=== PATIENT | female | born 1975 | race Caucasian/White ===

== ENCOUNTER 2019-03-23 10:30 | Emergency (ER) | payer BC, OTHER ==
[~2019-03-23] VITALS: Ht 170.2 cm; Wt 105.0 kg
[2019-03-23 10:43] VITALS: BP 157/92
[2019-03-23] MEDS ORDERED: NAPR-56 PO (11:09)
--- NOTE | 2019-03-23 11:11 | NUR ---
PT BACK FROM XRAY TO ROOM 15
[2019-03-23] MEDS ORDERED: ketorolac trometh inj. 60 MG/2 ML VIAL IM ONE (11:20)
== END 2019-03-23 11:39 | disposition home or self-care (01) ==
LOC: ER 10:30
DX: M70.61 Trochanteric bursitis, right hip (principal); I10 Essential (primary) hypertension; E11.9 Type 2 diabetes mellitus without complications; G89.29 Other chronic pain; Z90.710 Acquired absence of both cervix and uterus; Z98.890 Other specified postprocedural states; Z88.0 Allergy status to penicillin; Z88.5 Allergy status to narcotic agent; Z79.899 Other long term (current) drug therapy; Y93.89 Activity, other specified
CPT/HCPCS: 73502; 96372; 99283; J1885

== ENCOUNTER 2019-05-27 15:24 | Emergency (ER) | payer BC, OTHER ==
[~2019-05-27] VITALS: Ht 170.2 cm; Wt 106.8 kg
[2019-05-27 15:59] LABS: BASOPHILS % (AUTO) 0.4 % (0-1); EOSINOPHILS # (AUTO) 0.1 X10'3 (0-0.9); EOSINOPHILS % (AUTO) 1.6 % (0-6); HEMOGLOBIN 14.7 g/dl (12.0-16.0); LYMPHOCYTES # (AUTO) 2.8 X10'3 (1.1-4.8); LYMPHOCYTES % (AUTO) 31.2 % (21-51); MEAN CORPUSCULAR HEMOGLOBIN 28.9 PG (27.0-31.0); MEAN CORPUSCULAR HGB CONC 34.3 g/dL (33.0-36.5); MEAN CORPUSCULAR VOLUME 84.3 FL (78-98); MEAN PLATELET VOLUME 8.3 FL (7.4-10.4); MONOCYTES # (AUTO) 0.7 X10'3 (0-0.9); MONOCYTES % (AUTO) 7.4 % (2-12); NEUTROPHILS # (AUTO) 5.3 X10'3 (1.8-7.7); NEUTROPHILS % (AUTO) 59.4 % (42-75); PLATELET COUNT 256 X10'3 (140-440); RED CELL DISTRIBUTION WIDTH 12.9 % (11.5-14.5); WHITE BLOOD COUNT 8.9 X10'3 (4.5-11.0)
[2019-05-27 16:06] LABS: ALANINE AMINOTRANSFERASE 19 U/L (12-78); ALBUMIN 3.6 G/DL (3.4-5.0); ALBUMIN/GLOBULIN RATIO 0.9 (1.1-1.5); ALKALINE PHOSPHATASE 104 IU/L (46-116); ANION GAP 9 (8-16); ASPARTATE AMINO TRANSFERASE 12 U/L (10-37); BILIRUBIN,TOTAL 0.4 MG/DL (0.1-1.0); BLOOD UREA NITROGEN 16 MG/DL (7-18); BUN/CREATININE RATIO 23.5 (6.6-38.0); CALCIUM 10.1 MG/DL (8.5-10.1); CHLORIDE 98 MMOL/L (99-107); CREATININE 0.68 MG/DL (0.40-0.90); GLUCOSE 353 MG/DL (70-104); POTASSIUM 3.8 MMOL/L (3.5-5.1); SODIUM 135 MMOL/L (135-145); TOTAL CARBON DIOXIDE 27.9 MMOL/L (24-32); TOTAL PROTEIN 7.4 G/DL (6.4-8.2); eGFR > 90 ML/MIN
[2019-05-27 16:15] LABS: PARTIAL THROMBOPLASTIN TIME 25 SECONDS (22-32)
[2019-05-27 16:56] VITALS: BP 141/65
[2019-05-27] MEDS ORDERED: MECL12.584 PO (17:12)
[2019-05-27] MEDS ORDERED: ONDA8TAB6 PO (17:12)
[2019-05-27] MEDS ORDERED: insulin regular, human 10 units/0.1 ml syringe SQ ONE (17:15)
== END 2019-05-27 18:06 | disposition home or self-care (01) ==
LOC: ER 15:25
DX: R07.89 Other chest pain (principal); I10 Essential (primary) hypertension; E11.9 Type 2 diabetes mellitus without complications; G89.29 Other chronic pain; Z90.710 Acquired absence of both cervix and uterus; Z98.890 Other specified postprocedural states; Z88.0 Allergy status to penicillin; Z88.5 Allergy status to narcotic agent; Z79.899 Other long term (current) drug therapy
CPT/HCPCS: 36415; 71045; 80053; 84484; 85025; 85610; 85730; 93005; 96372; 99284; J1815

== ENCOUNTER 2019-06-27 11:22 | Emergency (ER) | payer BC, OTHER ==
[~2019-06-27] VITALS: Ht 170.2 cm; Wt 106.8 kg
[~2019-06-27 11:22] MED LIST: MECL12.584 PO; ONDA8TAB6 PO
[2019-06-27 11:23] VITALS: BP 170/106
[2019-06-27] MEDS ORDERED: DOXY100C43 PO (12:32)
[2019-06-27] MEDS ORDERED: LIDOcaine 1% W/epiNEPHrine 1:100,000 20ml vial SQ ONE (12:55)
== END 2019-06-27 13:24 | disposition home or self-care (01) ==
LOC: ER 11:22
DX: L02.212 Cutaneous abscess of back [any part, except buttock and flank] (principal); I10 Essential (primary) hypertension; E11.9 Type 2 diabetes mellitus without complications; G89.29 Other chronic pain; Z90.710 Acquired absence of both cervix and uterus; Z85.43 Personal history of malignant neoplasm of ovary; Z98.890 Other specified postprocedural states; Z88.0 Allergy status to penicillin; Z88.5 Allergy status to narcotic agent; Z79.899 Other long term (current) drug therapy
CPT/HCPCS: 10060; 99283

== ENCOUNTER 2019-07-01 15:10 | Emergency (ER) | payer BC ==
[~2019-07-01] VITALS: Ht 170.2 cm; Wt 106.8 kg
[~2019-07-01 15:10] MED LIST changes: +DOXY100C43 PO
[2019-07-01 15:14] VITALS: BP 158/102
[2019-07-01] MEDS ORDERED: SULF1TAB49 PO (16:18)
== END 2019-07-01 16:52 | disposition home or self-care (01) ==
LOC: ER 15:10
DX: L02.212 Cutaneous abscess of back [any part, except buttock and flank] (principal); L03.312 Cellulitis of back [any part except buttock and flank]; I10 Essential (primary) hypertension; E11.9 Type 2 diabetes mellitus without complications; G89.29 Other chronic pain; Z85.43 Personal history of malignant neoplasm of ovary; Z90.710 Acquired absence of both cervix and uterus; Z98.890 Other specified postprocedural states; Z88.0 Allergy status to penicillin; Z88.5 Allergy status to narcotic agent; Z79.899 Other long term (current) drug therapy
CPT/HCPCS: 87070; 87077; 87186; 99283

== ENCOUNTER 2019-07-28 13:50 | Emergency (ER) | payer BC ==
[~2019-07-28] VITALS: Ht 170.2 cm; Wt 105.0 kg
[~2019-07-28 13:50] MED LIST changes: -DOXY100C43 PO
[2019-07-28 14:03] VITALS: BP 155/81
--- NOTE | 2019-07-28 14:57 | NUR ---
WENT IN WITH PROVIDER TO OBSERVE WHILE HE LOOKED AT PT WOUNDS ON HER HIP AND BOTTOM
[2019-07-28] MEDS ORDERED: COROTSUS OT (14:58)
[2019-07-28] MEDS ORDERED: MUPI22OI30 TOP (14:58)
[2019-07-28] MEDS ORDERED: BACDS PO (14:58)
== END 2019-07-28 15:09 | disposition home or self-care (01) ==
LOC: ER 13:51
DX: S00.411A Abrasion of right ear, initial encounter (principal); S31.819A Unspecified open wound of right buttock, initial encounter; S71.002A Unspecified open wound, left hip, initial encounter; L02.31 Cutaneous abscess of buttock; L02.416 Cutaneous abscess of left lower limb; I10 Essential (primary) hypertension; E11.9 Type 2 diabetes mellitus without complications; G89.29 Other chronic pain; Z90.710 Acquired absence of both cervix and uterus; Z98.890 Other specified postprocedural states; Z85.43 Personal history of malignant neoplasm of ovary; Z86.14 Personal history of Methicillin resistant Staphylococcus aureus infection; Z88.0 Allergy status to penicillin; Z88.5 Allergy status to narcotic agent; Z79.899 Other long term (current) drug therapy; X58.XXXA Exposure to other specified factors, initial encounter; Y93.89 Activity, other specified; Y92.89 Other specified places as the place of occurrence of the external cause; Y99.8 Other external cause status
CPT/HCPCS: 99283

== ENCOUNTER 2019-07-30 22:50 | Emergency (ER) | payer BC ==
[~2019-07-30] VITALS: Ht 170.2 cm; Wt 105.0 kg
[~2019-07-30 22:50] MED LIST changes: +BACDS PO; +COROTSUS OT; +MUPI22OI30 TOP
[2019-07-30 23:32] LABS: BASOPHILS # (AUTO) 0.1 X10'3 (0-0.2); BASOPHILS % (AUTO) 0.7 % (0-1); EOSINOPHILS # (AUTO) 0.5 X10'3 (0-0.9); EOSINOPHILS % (AUTO) 4.2 % (0-6); HEMATOCRIT 39.9 % (35.0-45.0); HEMOGLOBIN 13.7 g/dl (12.0-16.0); LYMPHOCYTES # (AUTO) 1.9 X10'3 (1.1-4.8); LYMPHOCYTES % (AUTO) 17.6 % (21-51); MEAN CORPUSCULAR HEMOGLOBIN 29.2 PG (27.0-31.0); MEAN CORPUSCULAR HGB CONC 34.4 g/dL (33.0-36.5); MEAN CORPUSCULAR VOLUME 84.9 FL (78-98); MEAN PLATELET VOLUME 8.9 FL (7.4-10.4); MONOCYTES # (AUTO) 0.9 X10'3 (0-0.9); MONOCYTES % (AUTO) 8.7 % (2-12); NEUTROPHILS # (AUTO) 7.4 X10'3 (1.8-7.7); NEUTROPHILS % (AUTO) 68.8 % (42-75); PLATELET COUNT 222 X10'3 (140-440); RED CELL DISTRIBUTION WIDTH 13.2 % (11.5-14.5); WHITE BLOOD COUNT 10.8 X10'3 (4.5-11.0)
[2019-07-30 23:43] LABS: PARTIAL THROMBOPLASTIN TIME 26 SECONDS (22-32)
[2019-07-30 23:52] LABS: ALANINE AMINOTRANSFERASE 9 U/L (12-78); ALBUMIN/GLOBULIN RATIO 0.7 (1.1-1.5); ALKALINE PHOSPHATASE 110 IU/L (46-116); ANION GAP 9 (8-16); ASPARTATE AMINO TRANSFERASE 9 U/L (10-37); BILIRUBIN,TOTAL 0.3 MG/DL (0.1-1.0); BLOOD UREA NITROGEN 14 MG/DL (7-18); BUN/CREATININE RATIO 17.7 (6.6-38.0); CALCIUM 9.9 MG/DL (8.5-10.1); CHLORIDE 96 MMOL/L (99-107); CREATININE 0.79 MG/DL (0.40-0.90); POTASSIUM 3.6 MMOL/L (3.5-5.1); SODIUM 131 MMOL/L (135-145); TOTAL CARBON DIOXIDE 25.8 MMOL/L (24-32); TOTAL PROTEIN 7.3 G/DL (6.4-8.2); eGFR 79 ML/MIN
[2019-07-30 23:54] LABS: GLUCOSE 481 MG/DL (70-104)
--- NOTE | 2019-07-30 23:54 | NUR ---
EDUCATED PT TO USE HEBICLEANSE.
[2019-07-31] MEDS ORDERED: normal saline 1000ml 1,000 ML IV ONE
[2019-07-31] MEDS ORDERED: ondansetron 4mg rapidly disintigrating tab PO ONE (00:20)
[2019-07-31] MEDS ORDERED: HYDROcodone/acetaminophen 5mg/325mg tablet PO ONE (00:20)
[2019-07-31 00:28] VITALS: BP 173/94
--- NOTE | 2019-07-31 01:14 | NUR ---
SPOKE WITH ERIKA CRUZ AND MARANDA FRANCISCO ABOUT PT BG OF 460S AND NO INSULIN AT HOME. ERIKA CRUZ ORDERED INSULIN 10 U IV
[2019-07-31] MEDS ORDERED: insulin regular, human 10 units/0.1 ml syringe IV ONE (01:15)
== END 2019-07-31 01:53 | disposition home or self-care (01) ==
LOC: ER 22:51
DX: L02.31 Cutaneous abscess of buttock (principal); L02.416 Cutaneous abscess of left lower limb; E87.1 Hypo-osmolality and hyponatremia; E11.65 Type 2 diabetes mellitus with hyperglycemia; I10 Essential (primary) hypertension; G89.29 Other chronic pain; Z90.710 Acquired absence of both cervix and uterus; Z98.890 Other specified postprocedural states; Z88.0 Allergy status to penicillin; Z88.5 Allergy status to narcotic agent
CPT/HCPCS: 10061; 36415; 71045; 80053; 82948; 83605; 84145; 85025; 85610; 85730; 87040; 96361; 96374; 99284; J1815; J7030

== ENCOUNTER 2020-07-04 12:05 | Emergency (ER) | payer BC, OTHER ==
[~2020-07-04] VITALS: Ht 170.2 cm; Wt 102.6 kg
[~2020-07-04 12:05] MED LIST changes: -BACDS PO; +MECL-183 PO; -MECL12.584 PO; -MUPI22OI30 TOP
[2020-07-04 12:55] LABS: BASOPHILS # (AUTO) 0.1 X10'3 (0-0.2); BASOPHILS % (AUTO) 0.7 % (0-1); EOSINOPHILS # (AUTO) 0.2 X10'3 (0-0.9); EOSINOPHILS % (AUTO) 1.6 % (0-6); HEMOGLOBIN 15.9 g/dl (12.0-16.0); LYMPHOCYTES # (AUTO) 2.5 X10'3 (1.1-4.8); LYMPHOCYTES % (AUTO) 23.2 % (21-51); MEAN CORPUSCULAR HEMOGLOBIN 29.2 PG (27.0-31.0); MEAN CORPUSCULAR HGB CONC 33.8 g/dL (33.0-36.5); MEAN CORPUSCULAR VOLUME 86.6 FL (78-98); MEAN PLATELET VOLUME 9.4 FL (7.4-10.4); MONOCYTES # (AUTO) 0.6 X10'3 (0-0.9); MONOCYTES % (AUTO) 5.6 % (2-12); NEUTROPHILS # (AUTO) 7.4 X10'3 (1.8-7.7); NEUTROPHILS % (AUTO) 68.9 % (42-75); PLATELET COUNT 244 X10'3 (140-440); RED BLOOD COUNT 5.43 X10'6 (4.20-5.60); RED CELL DISTRIBUTION WIDTH 13.4 % (11.5-14.5); WHITE BLOOD COUNT 10.7 X10'3 (4.5-11.0)
[2020-07-04 12:57] LABS: ALANINE AMINOTRANSFERASE 20 U/L (12-78); ALBUMIN 3.8 G/DL (3.4-5.0); ALKALINE PHOSPHATASE 107 IU/L (46-116); ANION GAP 12 (8-16); ASPARTATE AMINO TRANSFERASE 24 U/L (10-37); BILIRUBIN,TOTAL 0.5 MG/DL (0.1-1.0); BLOOD UREA NITROGEN 15 MG/DL (7-18); BUN/CREATININE RATIO 22.1 (6.6-38.0); CALCIUM 9.6 MG/DL (8.5-10.1); CHLORIDE 99 MMOL/L (99-107); CREATININE 0.68 MG/DL (0.40-0.90); GLUCOSE 354 MG/DL (70-104); POTASSIUM 4.7 MMOL/L (3.5-5.1); SODIUM 134 MMOL/L (135-145); TOTAL CARBON DIOXIDE 23.3 MMOL/L (24-32); TOTAL PROTEIN 7.8 G/DL (6.4-8.2); eGFR > 90 ML/MIN
[2020-07-04 15:09] VITALS: BP 116/74
== END 2020-07-04 15:12 | disposition home or self-care (01) ==
LOC: ER 12:06
DX: R07.89 Other chest pain (principal); I10 Essential (primary) hypertension; E11.9 Type 2 diabetes mellitus without complications; G89.29 Other chronic pain; Z90.710 Acquired absence of both cervix and uterus; Z98.890 Other specified postprocedural states; Z88.0 Allergy status to penicillin; Z88.5 Allergy status to narcotic agent; Z79.899 Other long term (current) drug therapy
CPT/HCPCS: 36415; 71045; 80053; 83880; 84484; 85025; 93005; 99285

== ENCOUNTER 2020-08-18 12:31 | Emergency (ER) | payer OTHER ==
[~2020-08-18] VITALS: Ht 170.2 cm; Wt 100.0 kg
[~2020-08-18 12:31] MED LIST changes: -MECL-183 PO; +MECL-226 PO
[2020-08-18 12:46] VITALS: BP 170/106
== END 2020-08-18 13:13 | disposition home or self-care (01) ==
LOC: ER 12:32
DX: R53.83 Other fatigue (principal); R53.1 Weakness; Z20.828 Contact with and (suspected) exposure to other viral communicable diseases; I10 Essential (primary) hypertension; E11.9 Type 2 diabetes mellitus without complications; G89.29 Other chronic pain; Z90.710 Acquired absence of both cervix and uterus; Z98.890 Other specified postprocedural states; Z88.0 Allergy status to penicillin; Z88.5 Allergy status to narcotic agent; Z79.899 Other long term (current) drug therapy
CPT/HCPCS: 87635; 99282; C9803

== ENCOUNTER 2020-10-28 01:16 | Emergency (ER) | payer OTHER ==
[~2020-10-28] VITALS: Ht 170.2 cm; Wt 100.0 kg
[2020-10-28] MEDS ORDERED: normal saline 1000ml 1,000 ML IV ONE (01:50)
[2020-10-28] MEDS ORDERED: ondansetron/PF 4mg/2ml inj IV ONE ×3 (01:50→04:05)
[2020-10-28 02:08] LABS: BASOPHILS % (AUTO) 0.2 % (0-1); EOSINOPHILS % (AUTO) 0.1 % (0-6); HEMATOCRIT 42.6 % (35.0-45.0); HEMOGLOBIN 14.3 g/dl (12.0-16.0); LYMPHOCYTES # (AUTO) 0.7 X10'3 (1.1-4.8); LYMPHOCYTES % (AUTO) 3.6 % (21-51); MEAN CORPUSCULAR HEMOGLOBIN 28.7 PG (27.0-31.0); MEAN CORPUSCULAR HGB CONC 33.7 g/dL (33.0-36.5); MEAN CORPUSCULAR VOLUME 85.3 FL (78-98); MEAN PLATELET VOLUME 8.1 FL (7.4-10.4); MONOCYTES # (AUTO) 1.4 X10'3 (0-0.9); MONOCYTES % (AUTO) 7.8 % (2-12); NEUTROPHILS # (AUTO) 16.3 X10'3 (1.8-7.7); NEUTROPHILS % (AUTO) 88.3 % (42-75); PLATELET COUNT 196 X10'3 (140-440); RED BLOOD COUNT 4.99 X10'6 (4.20-5.60); RED CELL DISTRIBUTION WIDTH 12.7 % (11.5-14.5); WHITE BLOOD COUNT 18.4 X10'3 (4.5-11.0)
[2020-10-28 02:21] LABS: ALANINE AMINOTRANSFERASE 13 U/L (12-78); ALBUMIN 3.1 G/DL (3.4-5.0); ALBUMIN/GLOBULIN RATIO 0.7 (1.1-1.5); ALKALINE PHOSPHATASE 112 IU/L (46-116); ANION GAP 16 (8-16); ASPARTATE AMINO TRANSFERASE 11 U/L (10-37); BILIRUBIN,TOTAL 0.8 MG/DL (0.1-1.0); BLOOD UREA NITROGEN 10 MG/DL (7-18); BUN/CREATININE RATIO 17.5 (6.6-38.0); CHLORIDE 100 MMOL/L (99-107); CREATININE 0.57 MG/DL (0.40-0.90); GLUCOSE 394 MG/DL (70-104); LIPASE < 50 U/L (73-393); POTASSIUM 3.4 MMOL/L (3.5-5.1); SODIUM 136 MMOL/L (135-145); TOTAL CARBON DIOXIDE 20.1 MMOL/L (24-32); TOTAL PROTEIN 7.4 G/DL (6.4-8.2); eGFR > 90 ML/MIN
[2020-10-28 02:50] LABS: CLARITY,URINE CLEAR (Clear); COLOR,URINE YELLOW (Yellow); GLUCOSE, URINE >=1000 mg/dl (Neg); KETONES,URINE >=80 mg/dl (Neg); LEUKOCYTE ESTERASE ,URINE NEGATIVE (Neg); NITRITES, URINE NEGATIVE (Neg); OCCULT BLOOD,URINE NEGATIVE (Neg); PH,URINE 5.5 (4.8-8.0); PROTEIN,URINE NEGATIVE (Neg); UROBILINOGEN,URINE 0.2 E.U/dL (0.2-1.0)
[2020-10-28 03:07] LABS: URINE AMPHETAMINE SCREEN NEGATIVE (Neg); URINE BARBITUATE SCREEN NEGATIVE (Neg); URINE BENZODIAZEPINES SCREEN NEGATIVE (Neg); URINE CANNABINOID SCREEN NEGATIVE (Neg); URINE COCAINE SCREEN NEGATIVE (Neg); URINE METHADONE SCREEN NEGATIVE (Neg); URINE OPIATE SCREEN NEGATIVE (Neg); URINE PHENCYCLIDINE SCREEN NEGATIVE (Neg)
[2020-10-28 03:08] LABS: UA COLLECTION TYPE CLN CATCH MIDSTREAM
[2020-10-28 03:09] LABS: BACTERIA,URINE 1+ /HPF (Neg); RBC,URINE 0-2 /HPF (0-2); SQUAMOUS EPITHELIAL CELL,UR MODERATE /LPF (FEW); WBC,URINE 0-4 /HPF (0-4)
[2020-10-28 03:17] LABS: URINE HCG NEGATIVE (NEG)
[2020-10-28] MEDS ORDERED: ringers solution, lactated 1000ml IV soln IV ONE (03:35)
[2020-10-28] MEDS ORDERED: insulin regular, human 10 units/0.1 ml syringe IV ONE (03:40)
[2020-10-28] MEDS ORDERED: ONDA4TAB6 PO (03:41)
[2020-10-28] MEDS ORDERED: PROC25SU31 RC (03:41)
[2020-10-28] MEDS ORDERED: METF-436 PO (03:41)
[2020-10-28 04:09] VITALS: BP 146/80
[2020-10-29] MEDS ORDERED: METF-436 PO (23:40)
== END 2020-10-28 04:50 | disposition home or self-care (01) ==
LOC: ER 01:17
DX: K29.00 Acute gastritis without bleeding (principal); E11.65 Type 2 diabetes mellitus with hyperglycemia; R11.2 Nausea with vomiting, unspecified; I10 Essential (primary) hypertension; G89.29 Other chronic pain; Z98.890 Other specified postprocedural states; Z85.43 Personal history of malignant neoplasm of ovary; Z88.0 Allergy status to penicillin; Z88.5 Allergy status to narcotic agent; Z79.2 Long term (current) use of antibiotics; Z79.899 Other long term (current) drug therapy
CPT/HCPCS: 36415; 80053; 80305; 81001; 81025; 82948; 83690; 85025; 96361; 96374; 96375; 96376; 99284; J1815; J2405; J7030; J7120

== ENCOUNTER 2020-10-29 20:11 | Inpatient (IN) | payer OTHER ==
[~2020-10-29] VITALS: Ht 170.2 cm; Wt 104.9 kg
[~2020-10-29 20:11] MED LIST changes: +METF-436 PO; +ONDA4TAB6 PO; +PROC25SU31 RC
--- NOTE | 2020-10-29 21:05 | NUR ---
serum lab and urine specimens to lab
[2020-10-29 21:10] LABS: BASOPHILS # (AUTO) 0.1 X10'3 (0-0.2); BASOPHILS % (AUTO) 0.3 % (0-1); EOSINOPHILS % (AUTO) 0.1 % (0-6); MONOCYTES # (AUTO) 1.6 X10'3 (0-0.9)
[2020-10-29 21:13] LABS: HEMATOCRIT 42.5 % (35.0-45.0); HEMOGLOBIN 14.1 g/dl (12.0-16.0); LYMPHOCYTES % (AUTO) 5.3 % (21-51); MEAN CORPUSCULAR HEMOGLOBIN 28.4 PG (27.0-31.0); MEAN CORPUSCULAR HGB CONC 33.1 g/dL (33.0-36.5); MEAN CORPUSCULAR VOLUME 85.7 FL (78-98); MEAN PLATELET VOLUME 8.9 FL (7.4-10.4); MONOCYTES % (AUTO) 8.9 % (2-12); NEUTROPHILS # (AUTO) 15.7 X10'3 (1.8-7.7); NEUTROPHILS % (AUTO) 85.4 % (42-75); PLATELET COUNT 231 X10'3 (140-440); RED BLOOD COUNT 4.97 X10'6 (4.20-5.60); RED CELL DISTRIBUTION WIDTH 13.3 % (11.5-14.5); WHITE BLOOD COUNT 18.4 X10'3 (4.5-11.0)
[2020-10-29 21:26] LABS: URINE HCG NEGATIVE (NEG)
[2020-10-29 21:28] LABS: CLARITY,URINE CLEAR (Clear); COLOR,URINE YELLOW (Yellow); GLUCOSE, URINE 500 mg/dl (Neg); KETONES,URINE >=80 mg/dl (Neg); LEUKOCYTE ESTERASE ,URINE NEGATIVE (Neg); NITRITES, URINE NEGATIVE (Neg); OCCULT BLOOD,URINE TRACE-INTACT (Neg); PH,URINE 5.5 (4.8-8.0); PROTEIN,URINE 30 mg/dl (Neg)
[2020-10-29 21:35] LABS: UA COLLECTION TYPE CLN CATCH MIDSTREAM
[2020-10-29 21:36] LABS: BACTERIA,URINE FEW /HPF (Neg); RBC,URINE 0-2 /HPF (0-2); SQUAMOUS EPITHELIAL CELL,UR FEW /LPF (FEW); WBC,URINE 0-4 /HPF (0-4)
[2020-10-29 21:39] LABS: ALANINE AMINOTRANSFERASE 16 U/L (12-78); ALBUMIN 2.6 G/DL (3.4-5.0); ALBUMIN/GLOBULIN RATIO 0.5 (1.1-1.5); ALKALINE PHOSPHATASE 139 IU/L (46-116); ANION GAP 17 (8-16); ASPARTATE AMINO TRANSFERASE 16 U/L (10-37); BILIRUBIN,TOTAL 0.6 MG/DL (0.1-1.0); BLOOD UREA NITROGEN 8 MG/DL (7-18); BUN/CREATININE RATIO 11.4 (6.6-38.0); CALCIUM 10.5 MG/DL (8.5-10.1); CHLORIDE 94 MMOL/L (99-107); GLUCOSE 349 MG/DL (70-104); LIPASE < 50 U/L (73-393); POTASSIUM 3.2 MMOL/L (3.5-5.1); SODIUM 129 MMOL/L (135-145); TOTAL CARBON DIOXIDE 18.2 MMOL/L (24-32); TOTAL PROTEIN 7.5 G/DL (6.4-8.2); eGFR 90 ML/MIN
[2020-10-29] MEDS ORDERED: pantoprazole 40 MG vial IV ONE (22:20)
[2020-10-29] MEDS ORDERED: diazepam inj 5 MG/ML inj. IV ONE (22:20)
[2020-10-29] MEDS ORDERED: normal saline 1000ML IV soln IVB ONE (22:20)
[2020-10-29] MEDS ORDERED: ondansetron/PF 4mg/2ml inj IV ONE (22:20)
[2020-10-29] MEDS ORDERED: metoclopramide 5 mg/ml inj IV ONE (22:20)
[2020-10-29] MEDS ORDERED: vancomycin/NS 1 GM ADD-VANTAGE 250 ML IV ONE (22:55)
[2020-10-29] MEDS ORDERED: potassium Cl 20 mEq SR tablet PO PRN (23:35)
[2020-10-29] MEDS ORDERED: magnesium 4gm in 100ml NS 100 ML IV PRN (23:35)
[2020-10-29] MEDS ORDERED: magnesium hydroxide 30ml (MOM) UD suspension PO PRN (23:35)
[2020-10-29] MEDS ORDERED: potassium Cl 40MEQ/1/2NS 520ml 520 ML IV PRN ×2 (23:35)
[2020-10-29] MEDS ORDERED: magnesium Cl slow-release 64mg tablet PO PRN (23:35)
[2020-10-29] MEDS ORDERED: magnesium 2GM in 50ml NS 50 ML IV PRN (23:35)
[2020-10-29] MEDS ORDERED: acetaminophen 325mg tablet PO PRN (23:35)
[2020-10-29] MEDS ORDERED: mag hydrox/Alum hydrox/simeth 30ml oral suspension PO PRN (23:35)
[2020-10-29] MEDS ORDERED: METF-436 PO (23:40)
[2020-10-29] MEDS ORDERED: MESSAGE TO PHARMACY PO ONE (23:45)
[2020-10-29] MEDS ORDERED: dextrose ORAL solution 15 GM/59 ML bottle PO PRN ×2 (23:45)
[2020-10-29] MEDS ORDERED: glucagon, human recombinant 1mg kit SUBCUT PRN (23:45)
[2020-10-29] MEDS ORDERED: insulin Lispro (HumaLOG) vial - multi-dose SQ SCH (23:45)
[2020-10-29] MEDS ORDERED: dextrose 50%-water 50ml dispensing syringe IV PRN ×2 (23:45)
[2020-10-30 00:25] VITALS: BP 139/86
--- NOTE | 2020-10-30 00:25 | NUR ---
PATIENT ADMITTED TO ROOM 347A FROM ER FOR UNCONTROLLED DIABETES, CELLULITIS OF THE LEFT SIDE OF THE TORSO AND NAUSEA AND VOMITING. PLACED COMFORTABLE IN BED. VITAL SIGNS TAKEN AND RECORDED.
[2020-10-30] MEDS: normal saline 1000ml 1,000 ML IV SCH ×7 (00:35→18:33)
[2020-10-30] MEDS: HYDROcodone/acetaminophen 5mg/325mg tablet PO PRN ×4 (03:45→16:51)
[2020-10-30 06:07] LABS: BASOPHILS % (AUTO) 0.1 % (0-1); EOSINOPHILS % (AUTO) 0 % (0-6); HEMATOCRIT 38.2 % (35.0-45.0); HEMOGLOBIN 12.7 g/dl (12.0-16.0); LYMPHOCYTES # (AUTO) 0.7 X10'3 (1.1-4.8); LYMPHOCYTES % (AUTO) 3.8 % (21-51); MEAN CORPUSCULAR HEMOGLOBIN 28.7 PG (27.0-31.0); MEAN CORPUSCULAR HGB CONC 33.4 g/dL (33.0-36.5); MEAN PLATELET VOLUME 8.4 FL (7.4-10.4); MONOCYTES # (AUTO) 1.6 X10'3 (0-0.9); MONOCYTES % (AUTO) 8.5 % (2-12); NEUTROPHILS # (AUTO) 16.6 X10'3 (1.8-7.7); NEUTROPHILS % (AUTO) 87.6 % (42-75); PLATELET COUNT 245 X10'3 (140-440); RED BLOOD COUNT 4.44 X10'6 (4.20-5.60); RED CELL DISTRIBUTION WIDTH 13.3 % (11.5-14.5)
[2020-10-30 06:22] LABS: ALANINE AMINOTRANSFERASE 12 U/L (12-78); ALBUMIN 2.2 G/DL (3.4-5.0); ALBUMIN/GLOBULIN RATIO 0.5 (1.1-1.5); ALKALINE PHOSPHATASE 113 IU/L (46-116); ANION GAP 24 (8-16); ASPARTATE AMINO TRANSFERASE 12 U/L (10-37); BILIRUBIN,TOTAL 0.5 MG/DL (0.1-1.0); BLOOD UREA NITROGEN 9 MG/DL (7-18); BUN/CREATININE RATIO 12.9 (6.6-38.0); CALCIUM 9.4 MG/DL (8.5-10.1); CHLORIDE 101 MMOL/L (99-107); GLUCOSE 344 MG/DL (70-104); MAGNESIUM 1.5 MG/DL (1.5-2.4); SODIUM 136 MMOL/L (135-145); TOTAL PROTEIN 6.4 G/DL (6.4-8.2); eGFR 90 ML/MIN
[2020-10-30] MEDS ORDERED: glucagon, human recombinant 1mg kit SUBCUT PRN ×2 (06:25→20:00)
[2020-10-30] MEDS ORDERED: insulin Lispro (HumaLOG) vial - multi-dose SQ SCH ×2 (06:25→20:00)
[2020-10-30] MEDS ORDERED: dextrose ORAL solution 15 GM/59 ML bottle PO PRN ×4 (06:25→20:00)
[2020-10-30] MEDS ORDERED: MESSAGE TO PHARMACY PO ONE ×2 (06:25→20:00)
[2020-10-30] MEDS ORDERED: dextrose 50%-water 50ml dispensing syringe IV PRN ×4 (06:25→20:00)
--- NOTE | 2020-10-30 06:26 | NUR ---
Patient in room [facility] 347. I have received report from ENRIQUE SUBRAMANIAN and had the opportunity to ask questions and assume patient care.
[2020-10-30 06:27] LABS: POTASSIUM 2.9 MMOL/L (3.5-5.1); TOTAL CARBON DIOXIDE 11.1 MMOL/L (24-32)
--- NOTE | 2020-10-30 06:44 | NUR ---
CRITICAL K 2.9 & CO2 11.1, PAGED AWAITING CALL BACK
--- NOTE | 2020-10-30 06:45 | NUR ---
Patient in room [facility] 347A. I have received report from EMMA CARTER RN and had the opportunity to ask questions and assume patient care.
[2020-10-30 07:00] VITALS: BP 158/85
[2020-10-30] MEDS ORDERED: metFORMIN 500mg tablet PO SCH ×2 (08:00→08:45)
[2020-10-30] MEDS: K and/or MAG REPLACEMENT MC SCH ×2 (08:00→20:00)
--- NOTE | 2020-10-30 08:37 | NUR ---
Per pharmacist Ady, we do not hold glucophage if patient is admitted to the hospital , its for sulfonoreas medications only like glipizide. I have communicated this to the primary nurse Zaira.
[2020-10-30] MEDS: potassium Cl 20 mEq SR tablet PO PRN ×2 (09:24→15:06)
[2020-10-30 11:00] VITALS: BP 156/71
[2020-10-30] MEDS ORDERED: insulin regular, human U-100 3ml vial - multi-dose IV PRN (11:35)
[2020-10-30] MEDS ORDERED: potassium Cl 20 mEq SR tablet PO PRN ×2 (11:35)
[2020-10-30] MEDS ORDERED: sodium bicarbonate (8.4%) inj. 50 MEQ in dextrose 5% water 500ml 250 ML IV PRN (11:35)
[2020-10-30] MEDS ORDERED: potassium Cl 40MEQ/1/2NS 520ml 520 ML IV PRN ×2 (11:35)
[2020-10-30] MEDS ORDERED: sodium phosphate inj. 15 MMOL in dextrose 5%-water 250 ML IV PRN (11:35)
[2020-10-30] MEDS ORDERED: sodium bicarbonate (8.4%) inj. 100 MEQ in dextrose 5% water 500ml 500 ML IV PRN (11:35)
[2020-10-30] MEDS ORDERED: potassium CL 20mEq in D5-1/2NS 1,000 ML IV PRN (11:35)
[2020-10-30] MEDS ORDERED: sodium phosphate inj. 30 MMOL in dextrose 5%-water 250 ML IV PRN (11:35)
[2020-10-30] MEDS: VANCOmycin 1250MG/NS 250ml Bag 250 ML IV SCH ×2 (11:49→23:15)
[2020-10-30] MEDS ORDERED: vancomycin/NS 1 GM ADD-VANTAGE 250 ML IV SCH (12:00)
[2020-10-30] MEDS: cefepime 1GM/NS ADD-VANTAGE 100 ML IV SCH ×2 (12:55→20:32)
[2020-10-30 14:09] LABS: URINE AMPHETAMINE SCREEN NEGATIVE (Neg); URINE BARBITUATE SCREEN NEGATIVE (Neg); URINE BENZODIAZEPINES SCREEN NEGATIVE (Neg); URINE CANNABINOID SCREEN NEGATIVE (Neg); URINE COCAINE SCREEN NEGATIVE (Neg); URINE METHADONE SCREEN NEGATIVE (Neg); URINE OPIATE SCREEN POSITIVE (Neg); URINE PHENCYCLIDINE SCREEN NEGATIVE (Neg)
--- NOTE | 2020-10-30 14:27 | NUR ---
Problems reprioritized. Patient report given, questions answered & plan of care reviewed with MARILYNN GOZNALEZ ON PCU.
[2020-10-30 15:00] VITALS: BP 169/86
[2020-10-30] MEDS: Insulin Reg/NS 100units/100mL 100 ML IV SCH ×2 (15:23→19:38)
--- NOTE | 2020-10-30 15:40 | NUR ---
DM Consult: Pt admit w/ intractable N/V and L breast cellulitis hx T2DM out of meds for DM until recently r/t lapse in insurance per EMR. A1C 10.6. Pt would benefit from DM ed once more appropriate prior to discharge. Addendum: 10/30/20 at [address] Amended: Links added.
--- NOTE | 2020-10-30 15:41 | NUR ---
PAGER ID: [phone] MESSAGE: Pt Oralia Jackson 3011, DKA, Insulin drip started, gave PO 40 mEq K+ for low K+ of 2.9. Working on more IV access for abx and IV K+ replacement. Skye Wright
[2020-10-30] MEDS ORDERED: insulin regular, human 10 units/0.1 ml syringe IV PRN (16:56)
[2020-10-30 17:10] LABS: ANION GAP 18 (8-16); BLOOD UREA NITROGEN 10 MG/DL (7-18); BUN/CREATININE RATIO 14.9 (6.6-38.0); CALCIUM 9.1 MG/DL (8.5-10.1); CHLORIDE 101 MMOL/L (99-107); CREATININE 0.67 MG/DL (0.40-0.90); GLUCOSE 292 MG/DL (70-104); POTASSIUM 3.3 MMOL/L (3.5-5.1); SODIUM 131 MMOL/L (135-145); eGFR > 90 ML/MIN
[2020-10-30 17:12] LABS: TOTAL CARBON DIOXIDE 11.6 MMOL/L (24-32)
--- NOTE | 2020-10-30 18:28 | NUR ---
PAGER ID: [phone] MESSAGE: Pt Renetta 3011, can I get stronger pain control than [place] 5? She is writhing in pain from her left side cellulitus. Thanks, Skye IBRAHIM
--- NOTE | 2020-10-30 18:32 | NUR ---
Problems reprioritized. Patient report given, questions answered & plan of care reviewed with Kaelyn SUBRAMANIAN.
[2020-10-30] MEDS: ondansetron/PF 4mg/2ml inj IV PRN (18:44)
--- NOTE | 2020-10-30 18:56 | NUR ---
rec'd report from CARLOS SUBRAMANIAN. Pt stated she was still hurting. Additional pain meds were ordered by . Came back to give zofran and additional norco but pt woke briefly and fell asleep. additional pain meds held at this time. will continue to monitor. Insulin drip still not started, awaiting pending labs for potassium levels.
[2020-10-30 18:59] VITALS: BP 153/77
[2020-10-30 19:07] LABS: ALBUMIN 1.9 G/DL (3.4-5.0); ANION GAP 19 (8-16); BLOOD UREA NITROGEN 10 MG/DL (7-18); BUN/CREATININE RATIO 15.6 (6.6-38.0); CHLORIDE 100 MMOL/L (99-107); CREATININE 0.64 MG/DL (0.40-0.90); GLUCOSE 271 MG/DL (70-104); POTASSIUM 3.6 MMOL/L (3.5-5.1); SODIUM 128 MMOL/L (135-145); eGFR > 90 ML/MIN
[2020-10-30 19:15] LABS: TOTAL CARBON DIOXIDE 8.9 MMOL/L (24-32)
[2020-10-30] MEDS: morphine 2 MG/ML inj. syringe IV PRN (19:46)
[2020-10-30] MEDS ORDERED: K and/or MAG REPLACEMENT MC SCH (20:00)
--- NOTE | 2020-10-30 20:01 | NUR ---
spoke with Dr. Gao. He is aware of critical CO2. orders for labs and fluid changes and to stop insulin gtt. and ordered bicarb gtt.
--- NOTE | 2020-10-30 20:24 | NUR ---
pt off flooe for CT and CXR
[2020-10-30] MEDS ORDERED: insulin glargine (Lantus) pen - multi-dose SQ SCH ×3 (21:00)
[2020-10-30] MEDS: pantoprazole 40 MG vial IV SCH (21:13)
[2020-10-30] MEDS: sodium bicarbonate (8.4%) inj. 150 MEQ in sodium chloride 0.45% 1,000 ML IV SCH (21:14)
[2020-10-30] MEDS: enoxaparin 40mg/0.4ml syringe SQ SCH (21:21)
[2020-10-30] MEDS: clindamycin 600mg/D5W 50ml 50 ML IV SCH (21:25)
[2020-10-30] MEDS: lactobacillus rhamnosus 10,000 MMU CELLS/CAPSULE PO SCH (21:29)
[2020-10-30] MEDS: lisinopril 10 MG tablet PO SCH (21:29)
[2020-10-30] MEDS: propranolol 10mg tablet PO SCH (21:29)
--- NOTE | 2020-10-30 21:59 | NUR ---
Pt nauseated. threw up water. Mulu already given, notified for further orders, awaiting return call. Pt unable to take evening pills.
[2020-10-30 22:32] LABS: ALBUMIN 1.9 G/DL (3.4-5.0); ANION GAP 19 (8-16); BLOOD UREA NITROGEN 10 MG/DL (7-18); BUN/CREATININE RATIO 15.9 (6.6-38.0); CALCIUM 9.1 MG/DL (8.5-10.1); CHLORIDE 102 MMOL/L (99-107); CREATININE 0.63 MG/DL (0.40-0.90); GLUCOSE 244 MG/DL (70-104); POTASSIUM 3.5 MMOL/L (3.5-5.1); SODIUM 131 MMOL/L (135-145); eGFR > 90 ML/MIN
[2020-10-30 22:34] LABS: TOTAL CARBON DIOXIDE 10.3 MMOL/L (24-32)
[2020-10-30 23:20] VITALS: BP 139/56
[2020-10-31 00:10] LABS: ABG BASE EXCESS -19.5 mmol/L (-2.0-2.0); ABG HCO3 6.5 mmol/L (22.0-26.0); ABG OXYGEN SATURATION 97.3 % (94-97); ABG PCO2 (T) 17.1 mmHg (32.0-45.0); ABG PO2 (T) 90.3 mmHg (75.0-100.0); ALLEN'S TEST POSITIVE; FCOHb 0.4 % (0.0-3.9); FMetHb 0.4 % (0.0-1.5); FO2Hb 96.5 % (94-97); PATIENT TEMPERATURE 36.4; TOTAL HEMOGLOBIN 13.2 G/dl (12.0-16.0)
[2020-10-31] MEDS: morphine 2 MG/ML inj. syringe IV PRN ×5 (00:14→20:33)
[2020-10-31] MEDS: ondansetron/PF 4mg/2ml inj IV PRN ×3 (00:15→20:14)
--- NOTE | 2020-10-31 00:23 | NUR ---
Hospitalist notified of ABG results.
[2020-10-31] MEDS: clindamycin 600mg/D5W 50ml 50 ML IV SCH ×4 (02:11→20:28)
[2020-10-31 03:05] VITALS: BP 143/77
--- NOTE | 2020-10-31 06:22 | NUR ---
Problems reprioritized. Patient report given, questions answered & plan of care reviewed with Claire SUBRAMANIAN.
[2020-10-31 06:58] LABS: BASOPHILS # (AUTO) 0.1 X10'3 (0-0.2); BASOPHILS % (AUTO) 0.3 % (0-1); EOSINOPHILS % (AUTO) 0.1 % (0-6); HEMATOCRIT 37.8 % (35.0-45.0); HEMOGLOBIN 12.6 g/dl (12.0-16.0); LYMPHOCYTES # (AUTO) 1.4 X10'3 (1.1-4.8); LYMPHOCYTES % (AUTO) 5.8 % (21-51); MEAN CORPUSCULAR HEMOGLOBIN 28.9 PG (27.0-31.0); MEAN CORPUSCULAR HGB CONC 33.4 g/dL (33.0-36.5); MEAN CORPUSCULAR VOLUME 86.6 FL (78-98); MEAN PLATELET VOLUME 8.6 FL (7.4-10.4); MONOCYTES # (AUTO) 1.4 X10'3 (0-0.9); MONOCYTES % (AUTO) 5.7 % (2-12); NEUTROPHILS # (AUTO) 20.9 X10'3 (1.8-7.7); NEUTROPHILS % (AUTO) 88.1 % (42-75); PLATELET COUNT 269 X10'3 (140-440); RED BLOOD COUNT 4.37 X10'6 (4.20-5.60); RED CELL DISTRIBUTION WIDTH 13.8 % (11.5-14.5); WHITE BLOOD COUNT 23.7 X10'3 (4.5-11.0)
[2020-10-31 07:00] VITALS: BP 153/84
[2020-10-31 07:52] LABS: ALBUMIN 1.9 G/DL (3.4-5.0); ANION GAP 23 (8-16); BLOOD UREA NITROGEN 10 MG/DL (7-18); BUN/CREATININE RATIO 15.2 (6.6-38.0); CALCIUM 9.5 MG/DL (8.5-10.1); CHLORIDE 100 MMOL/L (99-107); CREATININE 0.66 MG/DL (0.40-0.90); GLUCOSE 287 MG/DL (70-104); MAGNESIUM 1.5 MG/DL (1.5-2.4); PHOSPHORUS 1.6 MG/DL (2.3-4.5); POTASSIUM 3.4 MMOL/L (3.5-5.1); SODIUM 131 MMOL/L (135-145); eGFR > 90 ML/MIN
[2020-10-31 08:02] LABS: TOTAL CARBON DIOXIDE 7.9 MMOL/L (24-32)
[2020-10-31 08:03] LABS: ABG BASE EXCESS -18.3 mmol/L (-2.0-2.0); ABG HCO3 7.1 mmol/L (22.0-26.0); ABG OXYGEN SATURATION 96.6 % (94-97); ABG PCO2 (T) 17.8 mmHg (32.0-45.0); ABG PO2 (T) 87.3 mmHg (75.0-100.0); ALLEN'S TEST POSITIVE; FCOHb 0.3 % (0.0-3.9); FMetHb 0.2 % (0.0-1.5); FO2Hb 96.1 % (94-97); TOTAL HEMOGLOBIN 13.5 G/dl (12.0-16.0)
--- NOTE | 2020-10-31 08:04 | NUR ---
Page Sent promotional table spacer PAGER ID: [phone] MESSAGE: Anna1 Renetta. Critical Co2 7.9. Claire [phone]
[2020-10-31] MEDS ORDERED: sodium phosphate inj. 15 MMOL in dextrose 5%-water 250 ML IV PRN (08:40)
[2020-10-31] MEDS ORDERED: sodium phosphate inj. 30 MMOL in dextrose 5%-water 250 ML IV PRN (08:40)
[2020-10-31] MEDS: normal saline 1000ml 1,000 ML IV SCH ×6 (08:40→20:40)
[2020-10-31] MEDS ORDERED: potassium CL 20mEq in D5-1/2NS 1,000 ML IV PRN (08:40)
[2020-10-31] MEDS ORDERED: insulin regular, human U-100 3ml vial - multi-dose IV PRN (08:40)
[2020-10-31] MEDS ORDERED: Neutra Phos packet PO PRN (08:40)
[2020-10-31] MEDS ORDERED: sodium bicarbonate (8.4%) inj. 50 MEQ in dextrose 5% water 500ml 250 ML IV PRN (08:40)
[2020-10-31] MEDS ORDERED: sodium bicarbonate (8.4%) inj. 100 MEQ in dextrose 5% water 500ml 500 ML IV PRN (08:40)
[2020-10-31] MEDS ORDERED: potassium Cl 40MEQ/1/2NS 520ml 520 ML IV PRN ×2 (08:40)
[2020-10-31] MEDS: sodium bicarbonate (8.4%) inj. 150 MEQ in sodium chloride 0.45% 1,000 ML IV SCH ×2 (08:56→19:05)
[2020-10-31 08:57] LABS: ALBUMIN 1.8 G/DL (3.4-5.0); ANION GAP 22 (8-16); BLOOD UREA NITROGEN 10 MG/DL (7-18); CALCIUM 9.2 MG/DL (8.5-10.1); CHLORIDE 101 MMOL/L (99-107); GLUCOSE 301 MG/DL (70-104); SODIUM 132 MMOL/L (135-145)
[2020-10-31] MEDS: lactobacillus rhamnosus 10,000 MMU CELLS/CAPSULE PO SCH ×2 (08:57→20:30)
[2020-10-31] MEDS: lisinopril 10 MG tablet PO SCH (08:57)
[2020-10-31] MEDS: propranolol 10mg tablet PO SCH ×2 (08:57→20:30)
[2020-10-31] MEDS: pantoprazole 40 MG vial IV SCH ×2 (08:57→20:29)
[2020-10-31] MEDS: cefepime 1GM/NS ADD-VANTAGE 100 ML IV SCH ×2 (08:57→20:00)
[2020-10-31 08:58] LABS: BUN/CREATININE RATIO 13.3 (6.6-38.0); CREATININE 0.75 MG/DL (0.40-0.90); POTASSIUM 3.4 MMOL/L (3.5-5.1); eGFR 83 ML/MIN
[2020-10-31 09:02] LABS: TOTAL CARBON DIOXIDE 8.7 MMOL/L (24-32)
[2020-10-31 09:29] LABS: PLATELET ESTIMATE NORMAL; TOTAL CELLS COUNTED 100
[2020-10-31] MEDS: Insulin Reg/NS 100units/100mL 100 ML IV SCH (10:09)
--- NOTE | 2020-10-31 10:19 | NUR ---
5F DUAL LUMEN MIDLINE PLACEMENT TO RIGHT BASILIC VEIN X'S 1 ATTEMPT WITH SUCCESS USING ULTRASOUND GUIDANCE. TIP ENDS MIDAXILLARY. BOTH LUMENS ASPIRATE BLOOD AND FLUSH WITHOUT DIFFICULTY. LAUREN PICC RN
[2020-10-31 11:00] VITALS: BP 139/79
[2020-10-31] MEDS: VANCOmycin 1250MG/NS 250ml Bag 250 ML IV SCH ×2 (11:20→23:43)
[2020-10-31] MEDS: Neutra Phos packet PO PRN (11:21)
[2020-10-31] MEDS: potassium Cl 20 mEq SR tablet PO PRN ×4 (11:21→22:00)
[2020-10-31 11:26] LABS: ALBUMIN 1.6 G/DL (3.4-5.0); ANION GAP 19 (8-16); BLOOD UREA NITROGEN 10 MG/DL (7-18); CALCIUM 8.8 MG/DL (8.5-10.1); CHLORIDE 102 MMOL/L (99-107); GLUCOSE 306 MG/DL (70-104); SODIUM 132 MMOL/L (135-145)
[2020-10-31 11:28] LABS: BUN/CREATININE RATIO 13.9 (6.6-38.0); CREATININE 0.72 MG/DL (0.40-0.90); eGFR 87 ML/MIN
[2020-10-31 11:30] LABS: TOTAL CARBON DIOXIDE 11.3 MMOL/L (24-32)
--- NOTE | 2020-10-31 12:03 | NUR ---
Page Sent Dr. Campuzano PAGER ID: [phone] MESSAGE: [phone] Renetta. Pt does not have tele orders would you like to put telemetry monitoring? PT pH 7.2 would you like me to stop bicarb and start D5 1/2NS with 20meq of K? Claire [phone]
[2020-10-31 12:59] LABS: ALBUMIN 1.5 G/DL (3.4-5.0); ANION GAP 14 (8-16); BLOOD UREA NITROGEN 11 MG/DL (7-18); BUN/CREATININE RATIO 17.7 (6.6-38.0); CALCIUM 8.8 MG/DL (8.5-10.1); CHLORIDE 103 MMOL/L (99-107); CREATININE 0.62 MG/DL (0.40-0.90); GLUCOSE 278 MG/DL (70-104); SODIUM 133 MMOL/L (135-145); TOTAL CARBON DIOXIDE 15.9 MMOL/L (24-32); eGFR > 90 ML/MIN
[2020-10-31 13:09] LABS: PHOSPHORUS 0.9 MG/DL (2.3-4.5); POTASSIUM 2.7 MMOL/L (3.5-5.1)
--- NOTE | 2020-10-31 13:23 | NUR ---
Page Sent promotional table spacer PAGER ID: [phone] MESSAGE: [phone] Renetta. Critical K 2.7 and Phosphorus 0.9. I need IV phos replacement please. Claire [phone]
--- NOTE | 2020-10-31 14:03 | NUR ---
holding insulin until K replaced
[2020-10-31] MEDS ORDERED: potassium phosphate inj 30 MMOL in normal saline 500ml IV soln 500 ML IV ONE (14:15)
[2020-10-31 15:00] VITALS: BP 122/68
--- NOTE | 2020-10-31 15:30 | NUR ---
F/u 10/31: Pt noted to still have nausea today; written DM ed w/ RD contact information placed in patients chart. Will monitor for reinforcement needs this admit. Addendum: 10/31/20 at [address] Amended: Links added.
[2020-10-31 17:21] LABS: ALBUMIN 1.5 G/DL (3.4-5.0); ANION GAP 14 (8-16); BLOOD UREA NITROGEN 12 MG/DL (7-18); BUN/CREATININE RATIO 19.4 (6.6-38.0); CALCIUM 9.1 MG/DL (8.5-10.1); CHLORIDE 103 MMOL/L (99-107); CREATININE 0.62 MG/DL (0.40-0.90); GLUCOSE 257 MG/DL (70-104); PHOSPHORUS 1.5 MG/DL (2.3-4.5); POTASSIUM 3.1 MMOL/L (3.5-5.1); SODIUM 134 MMOL/L (135-145); TOTAL CARBON DIOXIDE 17.3 MMOL/L (24-32); eGFR > 90 ML/MIN
[2020-10-31 18:00] VITALS: BP 121/69
--- NOTE | 2020-10-31 18:00 | NUR ---
Patient in room PCU 3011. I have received report from Silvia SUBRAMANIAN and had the opportunity to ask questions and assume patient care.
--- NOTE | 2020-10-31 18:25 | NUR ---
Problems reprioritized. Patient report given, questions answered & plan of care reviewed with Pepper SUBRAMANIAN.
--- NOTE | 2020-10-31 19:10 | NUR ---
PAGER ID: [phone] MESSAGE: [phone] Oralia Jackson: MD Campuzano ordered for the patient to go back on DKA protocol this AM and never returned RN's pages the rest of the day. No idea where we are at with this patient, please call. Pepper SUBRAMANIAN [phone]
[2020-10-31 19:44] LABS: ABG BASE EXCESS -12.8 mmol/L (-2.0-2.0); ABG HCO3 11.6 mmol/L (22.0-26.0); ABG OXYGEN SATURATION 96.1 % (94-97); ABG PCO2 (T) 23.5 mmHg (32.0-45.0); ABG PO2 (T) 75.7 mmHg (75.0-100.0); ALLEN'S TEST POSITIVE; FCOHb 0.2 % (0.0-3.9); FMetHb 0.2 % (0.0-1.5); FO2Hb 95.7 % (94-97); PATIENT TEMPERATURE 36.7
[2020-10-31 19:55] LABS: ALBUMIN 1.5 G/DL (3.4-5.0); ANION GAP 16 (8-16); BLOOD UREA NITROGEN 13 MG/DL (7-18); BUN/CREATININE RATIO 20.6 (6.6-38.0); CALCIUM 8.8 MG/DL (8.5-10.1); CHLORIDE 102 MMOL/L (99-107); CREATININE 0.63 MG/DL (0.40-0.90); GLUCOSE 270 MG/DL (70-104); POTASSIUM 3.4 MMOL/L (3.5-5.1); SODIUM 134 MMOL/L (135-145); eGFR > 90 ML/MIN
[2020-10-31 20:12] LABS: MAGNESIUM 1.8 MG/DL (1.5-2.4)
[2020-10-31] MEDS: enoxaparin 40mg/0.4ml syringe SQ SCH (20:29)
[2020-10-31] MEDS: K and/or MAG REPLACEMENT MC SCH (20:30)
--- NOTE | 2020-10-31 20:45 | NUR ---
new labs PAGER ID: [phone] MESSAGE: [phone] Oralia Jackson: New Labs and ABG now available. Blood sugar 258 as of 1999. Pepper SUBRAMANIAN [phone]
--- NOTE | 2020-10-31 21:14 | NUR ---
turn on insulin drip? PAGER ID: [phone] MESSAGE: [phone] Suaznne Jackson: Blood sugar 262, Potassium being replaced orally now, should we turn on the insulin drip back on? Pepper SUBRAMANIAN [phone]
--- NOTE | 2020-10-31 21:22 | NUR ---
STOP DKA protocol and continue with hyperglycemia protocol per MD Stoll, stating "Patient is going in the right direction, gap is 16, continue with Hyperglycemia protocol". Will proceed with plan and continue to monitor patient.
[2020-10-31] MEDS: insulin glargine (Lantus) pen - multi-dose SQ SCH (21:55)
[2020-10-31] MEDS: insulin Lispro (HumaLOG) vial - multi-dose SQ SCH (21:57)
[2020-10-31 22:00] VITALS: BP 162/79
[2020-10-31] MEDS ORDERED: VANCOMYCIN LEVEL IV ONE (22:30)
[2020-11-01] MEDS: normal saline 1000ml 1,000 ML IV SCH ×2 (00:40→03:46)
[2020-11-01] MEDS: clindamycin 600mg/D5W 50ml 50 ML IV SCH ×3 (01:42→13:50)
[2020-11-01] MEDS: ondansetron/PF 4mg/2ml inj IV PRN ×3 (01:49→18:31)
[2020-11-01] MEDS: potassium Cl 20 mEq SR tablet PO PRN ×4 (01:49→19:32)
[2020-11-01] MEDS: morphine 2 MG/ML inj. syringe IV PRN ×4 (01:49→23:50)
[2020-11-01 01:59] LABS: BASOPHILS # (AUTO) 0.1 X10'3 (0-0.2); BASOPHILS % (AUTO) 0.3 % (0-1); EOSINOPHILS # (AUTO) 0.2 X10'3 (0-0.9); EOSINOPHILS % (AUTO) 0.9 % (0-6); HEMATOCRIT 35.3 % (35.0-45.0); HEMOGLOBIN 11.8 g/dl (12.0-16.0); LYMPHOCYTES # (AUTO) 1.1 X10'3 (1.1-4.8); LYMPHOCYTES % (AUTO) 5.6 % (21-51); MEAN CORPUSCULAR HEMOGLOBIN 28.2 PG (27.0-31.0); MEAN CORPUSCULAR HGB CONC 33.4 g/dL (33.0-36.5); MEAN CORPUSCULAR VOLUME 84.3 FL (78-98); MEAN PLATELET VOLUME 8.2 FL (7.4-10.4); MONOCYTES # (AUTO) 0.8 X10'3 (0-0.9); NEUTROPHILS # (AUTO) 17.4 X10'3 (1.8-7.7); NEUTROPHILS % (AUTO) 89.2 % (42-75); PLATELET COUNT 267 X10'3 (140-440); RED BLOOD COUNT 4.18 X10'6 (4.20-5.60); RED CELL DISTRIBUTION WIDTH 13.5 % (11.5-14.5); WHITE BLOOD COUNT 19.4 X10'3 (4.5-11.0)
[2020-11-01 02:00] VITALS: BP 157/71
[2020-11-01 02:16] LABS: ALANINE AMINOTRANSFERASE 11 U/L (12-78); ALBUMIN 1.5 G/DL (3.4-5.0); ALBUMIN/GLOBULIN RATIO 0.4 (1.1-1.5); ALKALINE PHOSPHATASE 114 IU/L (46-116); ANION GAP 15 (8-16); ASPARTATE AMINO TRANSFERASE 19 U/L (10-37); BILIRUBIN,TOTAL 0.5 MG/DL (0.1-1.0); BLOOD UREA NITROGEN 12 MG/DL (7-18); BUN/CREATININE RATIO 19.7 (6.6-38.0); CALCIUM 8.5 MG/DL (8.5-10.1); CHLORIDE 101 MMOL/L (99-107); CREATININE 0.61 MG/DL (0.40-0.90); GLUCOSE 275 MG/DL (70-104); MAGNESIUM 1.6 MG/DL (1.5-2.4); POTASSIUM 3.2 MMOL/L (3.5-5.1); SODIUM 131 MMOL/L (135-145); TOTAL CARBON DIOXIDE 15.1 MMOL/L (24-32); TOTAL PROTEIN 5.4 G/DL (6.4-8.2); eGFR > 90 ML/MIN
[2020-11-01 02:23] LABS: PHOSPHORUS 1.2 MG/DL (2.3-4.5)
[2020-11-01] MEDS ORDERED: NORMAL SALINE IV ONE ×2 (02:30→03:00)
[2020-11-01] MEDS ORDERED: POTASSIUM PHOSPHATE IV ONE (02:30)
--- NOTE | 2020-11-01 02:41 | NUR ---
promotional table spacer PAGER ID: [phone] MESSAGE: [phone] Suzanne Jackson: Critical Phosphorous 1.2, Potassium 3.2, would you like me to hang another Potassium Phosphate bag? Pepper SUBRAMANIAN [phone]
[2020-11-01] MEDS ORDERED: SODIUM PHOSPHATE IV ONE (03:00)
[2020-11-01] MEDS: Insulin Reg/NS 100units/100mL 100 ML IV SCH (03:46)
[2020-11-01] MEDS: HYDROcodone/acetaminophen 10/325mg tab PO PRN ×2 (04:26→18:31)
--- NOTE | 2020-11-01 06:36 | NUR ---
Patient in room PCU 3011. I have received report from Pepper SUBRAMANIAN and had the opportunity to ask questions and assume patient care. Patient resting in bed in no acute distress.
[2020-11-01] MEDS: sodium bicarbonate (8.4%) inj. 150 MEQ in sodium chloride 0.45% 1,000 ML IV SCH ×2 (06:47→19:02)
[2020-11-01 07:00] VITALS: BP 126/70
[2020-11-01] MEDS: K and/or MAG REPLACEMENT MC SCH ×2 (08:00→19:32)
[2020-11-01] MEDS: cefepime 1GM/NS ADD-VANTAGE 100 ML IV SCH (08:38)
[2020-11-01] MEDS: pantoprazole 40 MG vial IV SCH (08:39)
[2020-11-01] MEDS: lisinopril 10 MG tablet PO SCH (08:40)
[2020-11-01] MEDS: Neutra Phos packet PO PRN ×3 (08:40→22:43)
[2020-11-01] MEDS: propranolol 10mg tablet PO SCH ×2 (08:40→19:32)
[2020-11-01] MEDS: lactobacillus rhamnosus 10,000 MMU CELLS/CAPSULE PO SCH ×2 (08:40→19:33)
[2020-11-01] MEDS: VANCOmycin 1250MG/NS 250ml Bag 250 ML IV SCH ×3 (08:41→23:38)
[2020-11-01] MEDS: insulin Lispro (HumaLOG) vial - multi-dose SQ SCH ×3 (09:21→19:36)
[2020-11-01 10:51] LABS: ALANINE AMINOTRANSFERASE 8 U/L (12-78); ALBUMIN 1.4 G/DL (3.4-5.0); ALBUMIN/GLOBULIN RATIO 0.4 (1.1-1.5); ALKALINE PHOSPHATASE 168 IU/L (46-116); ANION GAP 13 (8-16); BILIRUBIN,TOTAL 0.4 MG/DL (0.1-1.0); BLOOD UREA NITROGEN 11 MG/DL (7-18); BUN/CREATININE RATIO 17.2 (6.6-38.0); CALCIUM 8.4 MG/DL (8.5-10.1); CHLORIDE 100 MMOL/L (99-107); CREATININE 0.64 MG/DL (0.40-0.90); GLUCOSE 326 MG/DL (70-104); MAGNESIUM 1.6 MG/DL (1.5-2.4); SODIUM 132 MMOL/L (135-145); TOTAL CARBON DIOXIDE 18.6 MMOL/L (24-32); TOTAL PROTEIN 5.3 G/DL (6.4-8.2); eGFR > 90 ML/MIN
[2020-11-01 10:52] LABS: ASPARTATE AMINO TRANSFERASE 21 U/L (10-37); PHOSPHORUS 2.2 MG/DL (2.3-4.5); POTASSIUM 3.5 MMOL/L (3.5-5.1)
[2020-11-01 11:00] VITALS: BP 123/68
[2020-11-01] MEDS: proCHLORperazine 10mg tablet PO PRN ×2 (12:45→23:57)
[2020-11-01 12:55] LABS: BASOPHILS % (AUTO) 0.2 % (0-1); EOSINOPHILS # (AUTO) 0.2 X10'3 (0-0.9); EOSINOPHILS % (AUTO) 1.2 % (0-6); HEMATOCRIT 37.3 % (35.0-45.0); HEMOGLOBIN 12.5 g/dl (12.0-16.0); LYMPHOCYTES # (AUTO) 1.1 X10'3 (1.1-4.8); LYMPHOCYTES % (AUTO) 5.8 % (21-51); MEAN CORPUSCULAR HEMOGLOBIN 28.6 PG (27.0-31.0); MEAN CORPUSCULAR HGB CONC 33.4 g/dL (33.0-36.5); MEAN CORPUSCULAR VOLUME 85.4 FL (78-98); MONOCYTES # (AUTO) 0.8 X10'3 (0-0.9); NEUTROPHILS # (AUTO) 16.9 X10'3 (1.8-7.7); NEUTROPHILS % (AUTO) 88.8 % (42-75); PLATELET COUNT 290 X10'3 (140-440); RED BLOOD COUNT 4.37 X10'6 (4.20-5.60); RED CELL DISTRIBUTION WIDTH 13.6 % (11.5-14.5)
[2020-11-01 13:33] LABS: PLATELET ESTIMATE NORMAL; TOTAL CELLS COUNTED 100; TOXIC GRANULATION 1+
[2020-11-01 15:00] VITALS: BP 144/76
[2020-11-01 16:37] LABS: ALBUMIN 1.3 G/DL (3.4-5.0); ANION GAP 10 (8-16); BLOOD UREA NITROGEN 10 MG/DL (7-18); BUN/CREATININE RATIO 20.8 (6.6-38.0); CALCIUM 8.8 MG/DL (8.5-10.1); CHLORIDE 100 MMOL/L (99-107); CREATININE 0.48 MG/DL (0.40-0.90); GLUCOSE 280 MG/DL (70-104); POTASSIUM 3.3 MMOL/L (3.5-5.1); SODIUM 131 MMOL/L (135-145); TOTAL CARBON DIOXIDE 20.9 MMOL/L (24-32); eGFR > 90 ML/MIN
[2020-11-01 17:18] LABS: MAGNESIUM 1.6 MG/DL (1.5-2.4); PHOSPHORUS 1.8 MG/DL (2.3-4.5)
[2020-11-01] MEDS: piperacillin/tazo 3.375gm/50ml 50 ML IV SCH (17:36)
[2020-11-01 18:00] VITALS: BP 151/66
--- NOTE | 2020-11-01 18:08 | NUR ---
Problems reprioritized. Patient report given, questions answered & plan of care reviewed with Pepper SUBRAMANIAN . Patient in no acute distress at this time.
[2020-11-01] MEDS: pantoprazole 40mg Tablet.DR PO SCH (19:33)
[2020-11-01] MEDS: enoxaparin 40mg/0.4ml syringe SQ SCH (19:34)
[2020-11-01] MEDS: insulin glargine (Lantus) pen - multi-dose SQ SCH (21:06)
[2020-11-01 22:00] VITALS: BP 152/77
[2020-11-01] MEDS ORDERED: VANCOMYCIN LEVEL IV ONE (23:30)
[2020-11-02] MEDS: piperacillin/tazo 3.375gm/50ml 50 ML IV SCH ×3 (01:13→15:53)
[2020-11-02 02:00] VITALS: BP 127/66
--- NOTE | 2020-11-02 02:24 | NUR ---
Patient in room PCU 3011. I have received report from Silvia SUBRAMANIAN and had the opportunity to ask questions and assume patient care.
[2020-11-02] MEDS: morphine 2 MG/ML inj. syringe IV PRN (04:33)
[2020-11-02] MEDS: sodium bicarbonate (8.4%) inj. 150 MEQ in sodium chloride 0.45% 1,000 ML IV SCH ×2 (05:35→13:18)
[2020-11-02] MEDS: metoclopramide 5 mg/ml inj IV PRN ×2 (05:52→17:56)
--- NOTE | 2020-11-02 06:30 | NUR ---
Problems reprioritized. Patient report given, questions answered & plan of care reviewed with Nicole SUBRAMANIAN.
--- NOTE | 2020-11-02 06:40 | NUR ---
Patient in room PCU 3011. I have received report from MARILYNN Pabon and had the opportunity to ask questions and assume patient care.
[2020-11-02 07:00] VITALS: BP 148/75
[2020-11-02 07:39] LABS: BASOPHILS # (AUTO) 0.1 X10'3 (0-0.2); EOSINOPHILS # (AUTO) 0.4 X10'3 (0-0.9); EOSINOPHILS % (AUTO) 1.6 % (0-6); MEAN CORPUSCULAR HGB CONC 33.1 g/dL (33.0-36.5); PLATELET COUNT 336 X10'3 (140-440)
[2020-11-02 07:41] LABS: BASOPHILS % (AUTO) 0.2 % (0-1); HEMATOCRIT 38.9 % (35.0-45.0); HEMOGLOBIN 12.9 g/dl (12.0-16.0); LYMPHOCYTES # (AUTO) 1.4 X10'3 (1.1-4.8); LYMPHOCYTES % (AUTO) 6.4 % (21-51); MEAN CORPUSCULAR HEMOGLOBIN 28.2 PG (27.0-31.0); MEAN PLATELET VOLUME 8.8 FL (7.4-10.4); MONOCYTES # (AUTO) 1.3 X10'3 (0-0.9); MONOCYTES % (AUTO) 5.6 % (2-12); NEUTROPHILS # (AUTO) 19.4 X10'3 (1.8-7.7); NEUTROPHILS % (AUTO) 86.2 % (42-75); RED BLOOD COUNT 4.57 X10'6 (4.20-5.60); RED CELL DISTRIBUTION WIDTH 13.7 % (11.5-14.5); WHITE BLOOD COUNT 22.6 X10'3 (4.5-11.0)
[2020-11-02] MEDS: K and/or MAG REPLACEMENT MC SCH ×2 (08:00→20:00)
[2020-11-02 08:14] LABS: ALANINE AMINOTRANSFERASE 14 U/L (12-78); ALBUMIN 1.5 G/DL (3.4-5.0); ALBUMIN/GLOBULIN RATIO 0.3 (1.1-1.5); ALKALINE PHOSPHATASE 138 IU/L (46-116); ANION GAP 14 (8-16); ASPARTATE AMINO TRANSFERASE 18 U/L (10-37); BILIRUBIN,TOTAL 0.6 MG/DL (0.1-1.0); BLOOD UREA NITROGEN 9 MG/DL (7-18); BUN/CREATININE RATIO 15.8 (6.6-38.0); CALCIUM 8.9 MG/DL (8.5-10.1); CHLORIDE 97 MMOL/L (99-107); CREATININE 0.57 MG/DL (0.40-0.90); GLUCOSE 293 MG/DL (70-104); MAGNESIUM 1.7 MG/DL (1.5-2.4); SODIUM 132 MMOL/L (135-145); TOTAL CARBON DIOXIDE 21.1 MMOL/L (24-32); eGFR > 90 ML/MIN
--- NOTE | 2020-11-02 08:39 | NUR ---
Paged Dr Campuzano regarding critical K+ 3.0 PAGER ID: [phone] MESSAGE: Suzanne Byrne [id number] Critical K+ 3.0, will continue replacement protocol. Thanks Wwxig [phone]
[2020-11-02] MEDS: VANCOmycin 1250MG/NS 250ml Bag 250 ML IV SCH (08:59)
[2020-11-02] MEDS: ondansetron/PF 4mg/2ml inj IV PRN ×2 (09:00→15:06)
[2020-11-02] MEDS: HYDROcodone/acetaminophen 10/325mg tab PO PRN ×3 (09:00→22:37)
[2020-11-02] MEDS: potassium Cl 20 mEq SR tablet PO PRN ×3 (09:00→17:37)
[2020-11-02] MEDS: lisinopril 10 MG tablet PO SCH (09:01)
[2020-11-02] MEDS: pantoprazole 40mg Tablet.DR PO SCH ×2 (09:01→20:35)
[2020-11-02] MEDS: lactobacillus rhamnosus 10,000 MMU CELLS/CAPSULE PO SCH ×2 (09:01→20:36)
[2020-11-02] MEDS: propranolol 10mg tablet PO SCH ×2 (09:01→20:36)
[2020-11-02] MEDS: insulin Lispro (HumaLOG) vial - multi-dose SQ SCH ×3 (09:19→19:32)
[2020-11-02 11:00] VITALS: BP 127/72
[2020-11-02 11:25] LABS: PLATELET ESTIMATE NORMAL; TOTAL CELLS COUNTED 100
[2020-11-02 11:26] LABS: TOXIC GRANULATION 1+
--- NOTE | 2020-11-02 13:52 | NUR ---
Initial: Pt admit DX DKA hx T2DM A1C 10.6 not taking meds r/t "insurance issues", L breast/chest/back cellulitis, and intractable N/V per MD. Advanced to carb controlled diet PO 0-25%/refusing meals past 4 days though did eat 75% dinner last night but only drank milk this AM. Not meeting needs and continued nausea noted per EMR; also noted LBM 2/13 s/p first PRN reglan dose today. RD [email or web address] MD regarding routine bowel care this admit if agreeable. Constipation in addition to nausea likely impacting PO. Na 132, K 3.0, and Phos 2.0 all receiving replacements w/ protocol; noted Glu down to 275 from 349 on admit likely to impact electrolytes as well. Will trial Glucerna TIDWM for additional protein/kcal needs in hopes of better PO tolerance to liquids at this time; MD notified. Will continue to monitor for additional protein/kcal needs. Rec: 1. continue carb controlled diet; consider liberalization to regular if poor PO persists 2. Consider providing anti-nausea meds prior to meal times in order to optimize PO 3. Glucerna TIDWM; encourage PO 4. routine bowel care; promotility agent per MD 5. weekly wts Addendum: 11/02/20 at [address] Amended: Links added.
--- NOTE | 2020-11-02 14:31 | NUR ---
Problems reprioritized. Patient report given, questions answered & plan of care reviewed with MARILYNN Merlos.
[2020-11-02 15:00] VITALS: BP 131/73
--- NOTE | 2020-11-02 17:45 | NUR ---
Patient was complaining about not getting into the shower despite her request, she requested to speak to the charge nurse. Lizzy SUBRAMANIAN, charge nurse notified that patient wanted to speak to her. I notified the Aide to get patient into the shower or at least let the operations supervisor 2nd shift Aide know as the dinner already here and almost change of shift. Skye, the Aide said she will pass it on to the operations supervisor 2nd shift.
[2020-11-02 18:00] VITALS: BP 136/71
--- NOTE | 2020-11-02 18:01 | NUR ---
When I told patient that I would have the night aide take her to shower tonight. She said "I will just have it tomorrow!"
--- NOTE | 2020-11-02 18:21 | NUR ---
Problems reprioritized. Patient report given, questions answered & plan of care reviewed with Temitope SUBRAMANIAN.
[2020-11-02] MEDS: enoxaparin 40mg/0.4ml syringe SQ SCH (20:36)
[2020-11-02 22:00] VITALS: BP 130/72
[2020-11-02] MEDS: insulin glargine (Lantus) pen - multi-dose SQ SCH (22:36)
[2020-11-03] MEDS: piperacillin/tazo 3.375gm/50ml 50 ML IV SCH ×4 (00:38→23:54)
[2020-11-03] MEDS: potassium Cl 20 mEq SR tablet PO PRN (00:39)
[2020-11-03] MEDS: sodium bicarbonate (8.4%) inj. 150 MEQ in sodium chloride 0.45% 1,000 ML IV SCH ×2 (00:39→16:32)
[2020-11-03] MEDS: ondansetron/PF 4mg/2ml inj IV PRN ×3 (01:04→14:02)
[2020-11-03 02:00] VITALS: BP 121/62
[2020-11-03] MEDS: HYDROcodone/acetaminophen 10/325mg tab PO PRN ×3 (03:21→22:09)
[2020-11-03 06:00] VITALS: BP 129/69
--- NOTE | 2020-11-03 06:29 | NUR ---
Problems reprioritized. Patient report given, questions answered & plan of care reviewed with Epifanio SUBRAMANIAN.
[2020-11-03] MEDS: K and/or MAG REPLACEMENT MC SCH ×3 (08:00→20:00)
[2020-11-03 08:16] LABS: BASOPHILS # (AUTO) 0.1 X10'3 (0-0.2); BASOPHILS % (AUTO) 0.3 % (0-1); EOSINOPHILS # (AUTO) 0.3 X10'3 (0-0.9); EOSINOPHILS % (AUTO) 1.4 % (0-6); HEMATOCRIT 36.7 % (35.0-45.0); HEMOGLOBIN 12.3 g/dl (12.0-16.0); LYMPHOCYTES # (AUTO) 2.3 X10'3 (1.1-4.8); LYMPHOCYTES % (AUTO) 10.4 % (21-51); MEAN CORPUSCULAR HEMOGLOBIN 28.2 PG (27.0-31.0); MEAN CORPUSCULAR HGB CONC 33.4 g/dL (33.0-36.5); MEAN CORPUSCULAR VOLUME 84.2 FL (78-98); MEAN PLATELET VOLUME 8.5 FL (7.4-10.4); MONOCYTES # (AUTO) 1.1 X10'3 (0-0.9); MONOCYTES % (AUTO) 5.2 % (2-12); NEUTROPHILS # (AUTO) 18.4 X10'3 (1.8-7.7); NEUTROPHILS % (AUTO) 82.7 % (42-75); PLATELET COUNT 336 X10'3 (140-440); RED BLOOD COUNT 4.36 X10'6 (4.20-5.60); RED CELL DISTRIBUTION WIDTH 13.4 % (11.5-14.5); WHITE BLOOD COUNT 22.2 X10'3 (4.5-11.0)
[2020-11-03] MEDS: lisinopril 10 MG tablet PO SCH (08:22)
[2020-11-03] MEDS: pantoprazole 40mg Tablet.DR PO SCH ×2 (08:22→19:50)
[2020-11-03] MEDS: lactobacillus rhamnosus 10,000 MMU CELLS/CAPSULE PO SCH ×2 (08:22→19:50)
[2020-11-03] MEDS: propranolol 10mg tablet PO SCH ×2 (08:22→19:49)
[2020-11-03 08:49] LABS: ALANINE AMINOTRANSFERASE 13 U/L (12-78); ALBUMIN 1.5 G/DL (3.4-5.0); ALBUMIN/GLOBULIN RATIO 0.3 (1.1-1.5); ALKALINE PHOSPHATASE 237 IU/L (46-116); ANION GAP 10 (8-16); ASPARTATE AMINO TRANSFERASE 27 U/L (10-37); BILIRUBIN,TOTAL 0.6 MG/DL (0.1-1.0); BLOOD UREA NITROGEN 8 MG/DL (7-18); BUN/CREATININE RATIO 13.8 (6.6-38.0); CHLORIDE 99 MMOL/L (99-107); CREATININE 0.58 MG/DL (0.40-0.90); GLUCOSE 194 MG/DL (70-104); MAGNESIUM 1.7 MG/DL (1.5-2.4); PHOSPHORUS 2.4 MG/DL (2.3-4.5); POTASSIUM 3.3 MMOL/L (3.5-5.1); SODIUM 137 MMOL/L (135-145); TOTAL CARBON DIOXIDE 27.7 MMOL/L (24-32); TOTAL PROTEIN 5.8 G/DL (6.4-8.2); eGFR > 90 ML/MIN
[2020-11-03 11:00] VITALS: BP 156/90
[2020-11-03 11:02] LABS: TOTAL CELLS COUNTED 100
[2020-11-03 11:07] LABS: PLATELET ESTIMATE NORMAL; POLYCHROMASIA FEW; TOXIC GRANULATION 2+
[2020-11-03] MEDS: insulin Lispro (HumaLOG) vial - multi-dose SQ SCH ×2 (11:32→17:25)
[2020-11-03] MEDS: morphine 2 MG/ML inj. syringe IV PRN (14:03)
[2020-11-03] MEDS ORDERED: magnesium Cl slow-release 64mg tablet PO PRN (15:25)
[2020-11-03] MEDS ORDERED: potassium Cl 20 mEq SR tablet PO PRN ×2 (15:25)
[2020-11-03] MEDS ORDERED: magnesium 4gm in 100ml NS 100 ML IV PRN (15:25)
[2020-11-03] MEDS ORDERED: potassium Cl 40MEQ/1/2NS 520ml 520 ML IV PRN (15:25)
[2020-11-03] MEDS ORDERED: VANCOMYCIN LEVEL IV ONE (15:30)
[2020-11-03 18:00] VITALS: BP 150/88
[2020-11-03] MEDS: metoclopramide 5 mg/ml inj IV PRN (19:50)
[2020-11-03] MEDS: enoxaparin 40mg/0.4ml syringe SQ SCH (19:50)
[2020-11-03 22:00] VITALS: BP 143/89
--- NOTE | 2020-11-03 22:00 | NUR ---
Insulin Humalog of 22 units was administered @1725 on day shift for a noon blood sugar of 263. I Did not cover pt for dinner Humalog due to only 90 minutes apart between administrations and the pts blood sugars would drop too low. Pt is aware that she received her noon insulin late and stated she was not happy about it.
[2020-11-03] MEDS: insulin glargine (Lantus) pen - multi-dose SQ SCH (22:16)
[2020-11-03] MEDS: vancomycin/NS 1 GM ADD-VANTAGE 250 ML IV SCH (23:54)
[2020-11-04] MEDS: vancomycin/NS 1 GM ADD-VANTAGE 250 ML IV SCH ×3 (00:01→23:43)
[2020-11-04] MEDS: sodium bicarbonate (8.4%) inj. 150 MEQ in sodium chloride 0.45% 1,000 ML IV SCH (01:30)
[2020-11-04 02:00] VITALS: BP 140/87
[2020-11-04] MEDS: HYDROcodone/acetaminophen 10/325mg tab PO PRN ×5 (02:22→23:43)
[2020-11-04 06:00] VITALS: BP 147/79
--- NOTE | 2020-11-04 06:05 | NUR ---
Patient in room PCU 3011. I have received report from MARILYNN Villela and had the opportunity to ask questions and assume patient care.
--- NOTE | 2020-11-04 06:05 | NUR ---
Patient in room PCU 3011. I have received report from Tika SUBRAMANIAN and had the opportunity to ask questions and assume patient care.
--- NOTE | 2020-11-04 06:26 | NUR ---
Patient in room PCU 3011. I have received report from Jennifer SUBRAMANIAN and had the opportunity to ask questions and assume patient care.
[2020-11-04 07:11] LABS: MAGNESIUM 1.7 MG/DL (1.5-2.4); PHOSPHORUS 3.6 MG/DL (2.3-4.5)
[2020-11-04] MEDS: propranolol 10mg tablet PO SCH ×2 (07:24→20:08)
[2020-11-04] MEDS: pantoprazole 40mg Tablet.DR PO SCH ×2 (07:24→19:47)
[2020-11-04] MEDS: ondansetron/PF 4mg/2ml inj IV PRN ×2 (07:24→22:01)
[2020-11-04] MEDS: lactobacillus rhamnosus 10,000 MMU CELLS/CAPSULE PO SCH ×2 (07:25→19:47)
[2020-11-04] MEDS: piperacillin/tazo 3.375gm/50ml 50 ML IV SCH (07:26)
[2020-11-04] MEDS: lisinopril 10 MG tablet PO SCH (07:27)
[2020-11-04] MEDS: K and/or MAG REPLACEMENT MC SCH ×4 (08:00→20:00)
[2020-11-04 08:03] LABS: BASOPHILS # (AUTO) 0.1 X10'3 (0-0.2); BASOPHILS % (AUTO) 0.5 % (0-1); HEMOGLOBIN 11.9 g/dl (12.0-16.0); NEUTROPHILS # (AUTO) 17.1 X10'3 (1.8-7.7); WHITE BLOOD COUNT 21.3 X10'3 (4.5-11.0)
[2020-11-04 08:04] LABS: EOSINOPHILS # (AUTO) 0.4 X10'3 (0-0.9); EOSINOPHILS % (AUTO) 1.7 % (0-6); HEMATOCRIT 35.9 % (35.0-45.0); LYMPHOCYTES # (AUTO) 2.2 X10'3 (1.1-4.8); LYMPHOCYTES % (AUTO) 10.2 % (21-51); MEAN CORPUSCULAR HEMOGLOBIN 28.5 PG (27.0-31.0); MEAN CORPUSCULAR HGB CONC 33.1 g/dL (33.0-36.5); MEAN PLATELET VOLUME 9.5 FL (7.4-10.4); MONOCYTES # (AUTO) 1.6 X10'3 (0-0.9); MONOCYTES % (AUTO) 7.5 % (2-12); NEUTROPHILS % (AUTO) 80.1 % (42-75); PLATELET COUNT 310 X10'3 (140-440); RED BLOOD COUNT 4.17 X10'6 (4.20-5.60)
[2020-11-04 08:14] LABS: ALBUMIN 1.3 G/DL (3.4-5.0); ANION GAP 13 (8-16); BLOOD UREA NITROGEN 11 MG/DL (7-18); BUN/CREATININE RATIO 14.1 (6.6-38.0); CALCIUM 8.4 MG/DL (8.5-10.1); CHLORIDE 99 MMOL/L (99-107); CREATININE 0.78 MG/DL (0.40-0.90); GLUCOSE 253 MG/DL (70-104); SODIUM 137 MMOL/L (135-145); TOTAL CARBON DIOXIDE 25.3 MMOL/L (24-32); eGFR 80 ML/MIN
[2020-11-04 08:16] LABS: POTASSIUM 3.5 MMOL/L (3.5-5.1)
[2020-11-04] MEDS: insulin Lispro (HumaLOG) vial - multi-dose SQ SCH ×3 (08:48→19:53)
[2020-11-04 08:52] LABS: NUCLEATED RED BLOOD CELLS 2 /100WBC (0-0); TOTAL CELLS COUNTED 100
[2020-11-04 08:53] LABS: PLATELET ESTIMATE NORMAL
[2020-11-04 08:54] LABS: TOXIC GRANULATION 3+
[2020-11-04] MEDS: normal saline 1000ml 1,000 ML IV SCH ×2 (10:35→20:35)
--- NOTE | 2020-11-04 10:54 | NUR ---
Called WC team to advise of draining abscesses. Awaiting additional WC orders.
[2020-11-04 11:00] VITALS: BP 144/79
[2020-11-04] MEDS: metoclopramide 5 mg/ml inj IV PRN (13:19)
[2020-11-04 15:00] VITALS: BP 157/81
--- NOTE | 2020-11-04 18:00 | NUR ---
Orientee documentation: I have reviewed and agree with all interventions, assessments performed and documented by Jennifer SUBRAMANIAN.
--- NOTE | 2020-11-04 18:05 | NUR ---
Problems reprioritized. Patient report given, questions answered & plan of care reviewed with Felipe SUBRAMANIAN.
--- NOTE | 2020-11-04 18:19 | NUR ---
Problems reprioritized. Patient report given, questions answered & plan of care reviewed with MARILYNN Wang.
[2020-11-04] MEDS: ceFAZolin/D5W- 1GM premix 50 ML IV SCH (19:48)
[2020-11-04] MEDS: enoxaparin 40mg/0.4ml syringe SQ SCH (19:48)
[2020-11-04 22:00] VITALS: BP 148/78
[2020-11-04] MEDS: insulin glargine (Lantus) pen - multi-dose SQ SCH (22:15)
[2020-11-04] MEDS ORDERED: VANCOMYCIN LEVEL IV ONE (23:30)
[2020-11-04] MEDS: proCHLORperazine 10mg tablet PO PRN (23:43)
[2020-11-05] VITALS (13 sets, daily range): BP systolic 122–171; BP diastolic 55–91
[2020-11-05] MEDS: ceFAZolin/D5W- 1GM premix 50 ML IV SCH ×4 (01:50→19:15)
[2020-11-05] MEDS: metoclopramide 5 mg/ml inj IV PRN (02:44)
[2020-11-05] MEDS: normal saline 1000ml 1,000 ML IV SCH ×2 (02:44→10:38)
--- NOTE | 2020-11-05 06:44 | NUR ---
Patient in room PCU 3011. I have received report from facundo and had the opportunity to ask questions and assume patient care.
[2020-11-05] MEDS: K and/or MAG REPLACEMENT MC SCH ×4 (08:00→20:00)
[2020-11-05] MEDS ORDERED: sevoflurane 250ml liquid IH ONE (08:02)
[2020-11-05] MEDS ORDERED: midazolam 2 mg/2 ml injection ONE (08:07)
[2020-11-05] MEDS ORDERED: fentaNYL/PF 50MCG/1 ML 2ML syringe ONE (08:07)
[2020-11-05] MEDS ORDERED: neostigmine methylsulfate 1 MG/ML 10ml vial ONE (08:50)
[2020-11-05] MEDS ORDERED: rocuronium 10mg/ml inj IV ONE (08:50)
[2020-11-05] MEDS ORDERED: propofol inj 20 ML IV ONE (08:50)
[2020-11-05] MEDS ORDERED: glycopyrrolate 0.2mg/ml inj ONE (08:50)
--- NOTE | 2020-11-05 09:05 | NUR ---
ADMITTED TO PACU FROM OR ACCOMPANIED BY ANESTHESIA. INTIAL PHYSICAL ASSESSMENT DONE AND RECORDED. REPORT RECEIVED FROM ANESTHESIA.
[2020-11-05] MEDS ORDERED: ondansetron/PF 4mg/2ml inj IV PRN (09:10)
[2020-11-05] MEDS ORDERED: ringers solution, lacted 1,000 ML IV SCH (09:10)
[2020-11-05] MEDS ORDERED: meperidine/PF 25mg/ml syringe IV PRN ×3 (09:10)
[2020-11-05] MEDS ORDERED: proCHLORperazine 10 MG/2 ml inj IV PRN (09:10)
[2020-11-05] MEDS ORDERED: morphine 2 MG/ML inj. syringe IV PRN (09:10)
[2020-11-05] MEDS ORDERED: morphine 4 MG/ML inj SYRINge IV PRN (09:10)
[2020-11-05] MEDS ORDERED: meperidine/PF 25mg/ml syringe ONE (09:15)
[2020-11-05] MEDS ORDERED: VANCOMYCIN 750MG IV in NS 250 ML IV SCH ×2 (10:00→22:03)
--- NOTE | 2020-11-05 10:00 | NUR ---
PACU DISCHARGE CRITERIA MET, REPORT GIVEN TO FLOOR. DENIES PAIN OR DISCOMFORT, TRANSFERRED TO ROOM IN STABLE GOOD CONDITION.
--- NOTE | 2020-11-05 10:03 | NUR ---
pt returned to unit, vs stable . denies any pain . drsg to surgical site intact call babb in reach will monitor
[2020-11-05] MEDS: lactobacillus rhamnosus 10,000 MMU CELLS/CAPSULE PO SCH ×2 (10:26→19:15)
[2020-11-05] MEDS: pantoprazole 40mg Tablet.DR PO SCH ×2 (10:26→19:15)
[2020-11-05] MEDS: propranolol 10mg tablet PO SCH ×2 (10:27→19:16)
[2020-11-05] MEDS: lisinopril 10 MG tablet PO SCH (10:27)
[2020-11-05] MEDS: HYDROcodone/acetaminophen 10/325mg tab PO PRN ×2 (12:08→19:36)
[2020-11-05 13:41] LABS: BASOPHILS # (AUTO) 0.1 X10'3 (0-0.2); BASOPHILS % (AUTO) 0.4 % (0-1); EOSINOPHILS # (AUTO) 0.2 X10'3 (0-0.9); EOSINOPHILS % (AUTO) 1.2 % (0-6); HEMATOCRIT 37.7 % (35.0-45.0); HEMOGLOBIN 12.4 g/dl (12.0-16.0); LYMPHOCYTES # (AUTO) 1.8 X10'3 (1.1-4.8); LYMPHOCYTES % (AUTO) 8.7 % (21-51); MEAN CORPUSCULAR HEMOGLOBIN 28.2 PG (27.0-31.0); MEAN CORPUSCULAR HGB CONC 32.8 g/dL (33.0-36.5); MEAN CORPUSCULAR VOLUME 86.2 FL (78-98); MONOCYTES # (AUTO) 1.6 X10'3 (0-0.9); NEUTROPHILS # (AUTO) 16.8 X10'3 (1.8-7.7); NEUTROPHILS % (AUTO) 81.7 % (42-75); PLATELET COUNT 324 X10'3 (140-440); RED BLOOD COUNT 4.37 X10'6 (4.20-5.60); RED CELL DISTRIBUTION WIDTH 13.8 % (11.5-14.5); WHITE BLOOD COUNT 20.5 X10'3 (4.5-11.0)
[2020-11-05 13:55] LABS: ALANINE AMINOTRANSFERASE 14 U/L (12-78); ALBUMIN 1.4 G/DL (3.4-5.0); ALBUMIN/GLOBULIN RATIO 0.3 (1.1-1.5); ALKALINE PHOSPHATASE 226 IU/L (46-116); ANION GAP 10 (8-16); ASPARTATE AMINO TRANSFERASE 30 U/L (10-37); BILIRUBIN,TOTAL 0.3 MG/DL (0.1-1.0); BLOOD UREA NITROGEN 10 MG/DL (7-18); BUN/CREATININE RATIO 10.8 (6.6-38.0); CALCIUM 8.6 MG/DL (8.5-10.1); CHLORIDE 101 MMOL/L (99-107); CREATININE 0.93 MG/DL (0.40-0.90); GLUCOSE 225 MG/DL (70-104); MAGNESIUM 1.9 MG/DL (1.5-2.4); SODIUM 139 MMOL/L (135-145); TOTAL CARBON DIOXIDE 27.8 MMOL/L (24-32); TOTAL PROTEIN 5.7 G/DL (6.4-8.2); eGFR 65 ML/MIN
[2020-11-05 13:57] LABS: POTASSIUM 3.5 MMOL/L (3.5-5.1)
[2020-11-05 14:02] LABS: PLATELET ESTIMATE NORMAL; TOTAL CELLS COUNTED 100
[2020-11-05] MEDS: insulin Lispro (HumaLOG) vial - multi-dose SQ SCH ×2 (14:35→19:23)
[2020-11-05] MEDS ORDERED: furosemide 40mg/4ml inj IV ONE (16:40)
--- NOTE | 2020-11-05 17:42 | NUR ---
End of shift rounds completed. pt in bed on phone. she denies pain no distress. drsg to surgical site with some drainage noted. on iv abx no adverse reactions. fair appetite with meals . ivf stopped and x 1 dose of lasix given for edema . call babb in reach will monitor
--- NOTE | 2020-11-05 18:00 | NUR ---
Patient in room PCU 3011. I have received report from Farncy RN and had the opportunity to ask questions and assume patient care.
[2020-11-05] MEDS: enoxaparin 40mg/0.4ml syringe SQ SCH (19:14)
[2020-11-05 20:38] LABS: BASOPHILS % (AUTO) 0.2 % (0-1); EOSINOPHILS # (AUTO) 0.2 X10'3 (0-0.9); EOSINOPHILS % (AUTO) 1.1 % (0-6); HEMATOCRIT 36.9 % (35.0-45.0); HEMOGLOBIN 12.2 g/dl (12.0-16.0); LYMPHOCYTES # (AUTO) 1.5 X10'3 (1.1-4.8); MEAN CORPUSCULAR HEMOGLOBIN 28.3 PG (27.0-31.0); MEAN CORPUSCULAR HGB CONC 33.2 g/dL (33.0-36.5); MEAN CORPUSCULAR VOLUME 85.5 FL (78-98); MONOCYTES # (AUTO) 0.9 X10'3 (0-0.9); MONOCYTES % (AUTO) 4.8 % (2-12); NEUTROPHILS # (AUTO) 15.9 X10'3 (1.8-7.7); NEUTROPHILS % (AUTO) 85.9 % (42-75); PLATELET COUNT 334 X10'3 (140-440); RED BLOOD COUNT 4.31 X10'6 (4.20-5.60); RED CELL DISTRIBUTION WIDTH 13.4 % (11.5-14.5); WHITE BLOOD COUNT 18.5 X10'3 (4.5-11.0)
[2020-11-05] MEDS: VANCOMYCIN 750MG IV in NS 250 ML IV SCH (21:48)
[2020-11-05] MEDS: insulin glargine (Lantus) pen - multi-dose SQ SCH (22:25)
[2020-11-06] MEDS: HYDROcodone/acetaminophen 10/325mg tab PO PRN ×4 (01:47→19:51)
[2020-11-06] MEDS: ceFAZolin/D5W- 1GM premix 50 ML IV SCH ×2 (01:47→08:29)
[2020-11-06 02:00] VITALS: BP 149/79
[2020-11-06] MEDS: VANCOMYCIN 750MG IV in NS 250 ML IV SCH (05:55)
--- NOTE | 2020-11-06 06:20 | NUR ---
Problems reprioritized. Patient report given, questions answered & plan of care reviewed with Francy RN.
--- NOTE | 2020-11-06 06:21 | NUR ---
Patient in room PCU 3011. I have received report from Guilherme and had the opportunity to ask questions and assume patient care.
[2020-11-06 07:24] VITALS: BP 155/84
[2020-11-06] MEDS: K and/or MAG REPLACEMENT MC SCH ×4 (08:00→19:59)
[2020-11-06] MEDS: pantoprazole 40mg Tablet.DR PO SCH ×2 (08:27→19:50)
[2020-11-06] MEDS: lactobacillus rhamnosus 10,000 MMU CELLS/CAPSULE PO SCH ×2 (08:27→19:50)
[2020-11-06] MEDS: propranolol 10mg tablet PO SCH ×2 (08:27→19:50)
[2020-11-06] MEDS: lisinopril 10 MG tablet PO SCH (08:28)
[2020-11-06] MEDS: insulin Lispro (HumaLOG) vial - multi-dose SQ SCH ×3 (08:35→19:49)
--- NOTE | 2020-11-06 12:22 | NUR ---
Reassessment: Pt PO steadily improving to 25-50% avg carb controlled diet past 5 days w/ more consistent 50% recent meals and 75-100% breakfast this AM. N/V resolved per MD note. S/p I&D of L breast/axilla abscess yesterday. Glucerna ONS cancelled in EMR so pt never received; RD recommends Glucerna TIDWM given additional protein/kcal needs. MD notified. LBM 11/05 receiving PRN compazine and reglan. Will continue to monitor. Rec: 1. continue carb controlled diet; encourage PO 2. Consider anti-nausea meds prior to meal times in order to optimize PO 3. Glucerna TIDWM; pending MD verification in EMR 4. routine bowel care; promotility agent per MD 5. weekly wts Addendum: 11/06/20 at [address] Amended: Links added.
[2020-11-06 12:31] VITALS: BP 148/83
[2020-11-06] MEDS: NUT.TX.GLUC.INTOLER,LAC-FR,SOY (GLUCERNA) 237 ML PO SCH ×2 (13:00→18:00)
[2020-11-06] MEDS ORDERED: VANCOMYCIN LEVEL IV ONE (13:30)
[2020-11-06] MEDS: ondansetron/PF 4mg/2ml inj IV PRN (15:06)
[2020-11-06 16:21] VITALS: BP 171/85
--- NOTE | 2020-11-06 16:29 | NUR ---
PAGER ID: [phone] MESSAGE: her sbp have been elevated nothing prn last sbp 171 notified md of sbp waiting for a responce
[2020-11-06 18:00] VITALS: BP 110/80
--- NOTE | 2020-11-06 18:06 | NUR ---
PAGER ID: [phone] MESSAGE: second page about patient sbp being elevated and she have nothing prn . please review and order if appropriate thank you. still no responce yet, second page sent will have night nurse follow up
--- NOTE | 2020-11-06 18:29 | NUR ---
dr mendoza paged about blood pressure . new orders for hydralazine iv
--- NOTE | 2020-11-06 18:34 | NUR ---
Problems reprioritized. Patient report given, questions answered & plan of care reviewed with [].
[2020-11-06] MEDS ORDERED: hydrALAZINE 20mg/ml inj. IV PRN (18:35)
[2020-11-06] MEDS: enoxaparin 40mg/0.4ml syringe SQ SCH (19:50)
[2020-11-06] MEDS: proCHLORperazine 10mg tablet PO PRN (19:50)
[2020-11-06] MEDS: insulin glargine (Lantus) pen - multi-dose SQ SCH (21:40)
[2020-11-06 22:00] VITALS: BP 134/71
[2020-11-06] MEDS: vancomycin inj 500 MG in normal saline 100ml IV soln 100 ML IV SCH (22:16)
[2020-11-07] MEDS: HYDROcodone/acetaminophen 10/325mg tab PO PRN ×2 (00:39→19:53)
[2020-11-07 02:00] VITALS: BP 137/77
--- NOTE | 2020-11-07 03:11 | NUR ---
Per MD orders (Kvng) do not remove ID dressing until wound care has consulted. Unable to take pictures at this time.
[2020-11-07] MEDS: proCHLORperazine 10mg tablet PO PRN (05:50)
[2020-11-07] MEDS: vancomycin inj 500 MG in normal saline 100ml IV soln 100 ML IV SCH ×3 (06:13→22:52)
--- NOTE | 2020-11-07 06:23 | NUR ---
Patient in room PCU 3011. I have received report from Guilherme and had the opportunity to ask questions and assume patient care.
--- NOTE | 2020-11-07 06:27 | NUR ---
Problems reprioritized. Patient report given, questions answered & plan of care reviewed with Francy RN.
[2020-11-07 06:57] VITALS: BP 158/82
[2020-11-07 07:05] LABS: ALANINE AMINOTRANSFERASE 11 U/L (12-78); ALBUMIN 1.4 G/DL (3.4-5.0); ALBUMIN/GLOBULIN RATIO 0.3 (1.1-1.5); ALKALINE PHOSPHATASE 219 IU/L (46-116); ANION GAP 5 (8-16); ASPARTATE AMINO TRANSFERASE 52 U/L (10-37); BILIRUBIN,TOTAL 0.3 MG/DL (0.1-1.0); BLOOD UREA NITROGEN 8 MG/DL (7-18); BUN/CREATININE RATIO 8.3 (6.6-38.0); CALCIUM 8.5 MG/DL (8.5-10.1); CHLORIDE 100 MMOL/L (99-107); CREATININE 0.96 MG/DL (0.40-0.90); GLUCOSE 147 MG/DL (70-104); SODIUM 136 MMOL/L (135-145); TOTAL CARBON DIOXIDE 30.6 MMOL/L (24-32); TOTAL PROTEIN 5.5 G/DL (6.4-8.2); eGFR 63 ML/MIN
[2020-11-07 07:16] LABS: POTASSIUM 2.7 MMOL/L (3.5-5.1)
--- NOTE | 2020-11-07 07:22 | NUR ---
PAGER ID: [phone] MESSAGE: [facility] room 3011 Renetta potassium 2.7 will replace per protocol,
[2020-11-07] MEDS: NUT.TX.GLUC.INTOLER,LAC-FR,SOY (GLUCERNA) 237 ML PO SCH ×3 (08:00→18:00)
[2020-11-07] MEDS: ondansetron/PF 4mg/2ml inj IV PRN (08:15)
[2020-11-07] MEDS: lisinopril 10 MG tablet PO SCH (08:26)
[2020-11-07] MEDS: propranolol 10mg tablet PO SCH ×2 (08:26→19:29)
[2020-11-07] MEDS: pantoprazole 40mg Tablet.DR PO SCH ×2 (08:27→19:53)
[2020-11-07] MEDS: lactobacillus rhamnosus 10,000 MMU CELLS/CAPSULE PO SCH ×2 (08:27→19:29)
[2020-11-07] MEDS: K and/or MAG REPLACEMENT MC SCH ×4 (08:34→20:00)
[2020-11-07] MEDS: morphine 10mg/ml inj. IV PRN ×2 (09:03→19:27)
[2020-11-07] MEDS: insulin Lispro (HumaLOG) vial - multi-dose SQ SCH ×3 (10:29→20:06)
[2020-11-07 11:56] VITALS: BP 156/89
[2020-11-07 17:32] VITALS: BP 158/89
--- NOTE | 2020-11-07 17:34 | NUR ---
End of shift rounds completed. pt in room awake on phone. she denies pain no distress no nausea. wound care was done to surgical incision . drsg changed to leno midline. on iv abx no adverse reactions. potassium was replaced per protocol. call babb in reach will monitor
[2020-11-07 18:00] VITALS: BP 139/84
[2020-11-07] MEDS: enoxaparin 40mg/0.4ml syringe SQ SCH (19:30)
[2020-11-07] MEDS ORDERED: VANCOMYCIN LEVEL IV ONE (21:30)
[2020-11-07 22:00] VITALS: BP 132/67
[2020-11-08] MEDS: HYDROcodone/acetaminophen 10/325mg tab PO PRN ×3 (01:26→23:56)
[2020-11-08 02:00] VITALS: BP 137/77
[2020-11-08] MEDS: vancomycin inj 500 MG in normal saline 100ml IV soln 100 ML IV SCH ×2 (07:09→15:25)
[2020-11-08] MEDS: K and/or MAG REPLACEMENT MC SCH ×4 (08:00→20:00)
[2020-11-08] MEDS: lisinopril 10 MG tablet PO SCH (08:08)
[2020-11-08] MEDS: propranolol 10mg tablet PO SCH ×2 (08:08→19:17)
[2020-11-08] MEDS: pantoprazole 40mg Tablet.DR PO SCH ×2 (08:08→19:17)
[2020-11-08] MEDS: lactobacillus rhamnosus 10,000 MMU CELLS/CAPSULE PO SCH ×2 (08:08→19:17)
[2020-11-08] MEDS: NUT.TX.GLUC.INTOLER,LAC-FR,SOY (GLUCERNA) 237 ML PO SCH ×3 (08:12→18:11)
[2020-11-08 08:30] LABS: ALBUMIN 1.4 G/DL (3.4-5.0); ANION GAP 6 (8-16); BLOOD UREA NITROGEN 8 MG/DL (7-18); BUN/CREATININE RATIO 9.6 (6.6-38.0); CALCIUM 8.5 MG/DL (8.5-10.1); CHLORIDE 102 MMOL/L (99-107); CREATININE 0.83 MG/DL (0.40-0.90); GLUCOSE 143 MG/DL (70-104); MAGNESIUM 1.9 MG/DL (1.5-2.4); SODIUM 136 MMOL/L (135-145); TOTAL CARBON DIOXIDE 27.6 MMOL/L (24-32); eGFR 74 ML/MIN
[2020-11-08 08:31] LABS: POTASSIUM 3.6 MMOL/L (3.5-5.1)
[2020-11-08 09:28] VITALS: BP 137/65
[2020-11-08 10:23] LABS: BASOPHILS % (AUTO) 0.2 % (0-1); EOSINOPHILS # (AUTO) 0.1 X10'3 (0-0.9); EOSINOPHILS % (AUTO) 0.7 % (0-6); HEMATOCRIT 34.6 % (35.0-45.0); HEMOGLOBIN 11.3 g/dl (12.0-16.0); LYMPHOCYTES # (AUTO) 1.1 X10'3 (1.1-4.8); MEAN CORPUSCULAR HEMOGLOBIN 28.2 PG (27.0-31.0); MEAN CORPUSCULAR HGB CONC 32.8 g/dL (33.0-36.5); MEAN PLATELET VOLUME 7.9 FL (7.4-10.4); MONOCYTES % (AUTO) 10.3 % (2-12); NEUTROPHILS # (AUTO) 7.8 X10'3 (1.8-7.7); NEUTROPHILS % (AUTO) 77.8 % (42-75); PLATELET COUNT 242 X10'3 (140-440); RED BLOOD COUNT 4.02 X10'6 (4.20-5.60)
[2020-11-08] MEDS: insulin Lispro (HumaLOG) vial - multi-dose SQ SCH ×3 (10:29→20:20)
[2020-11-08 10:44] LABS: TOTAL CELLS COUNTED 100
[2020-11-08 10:45] LABS: LARGE PLATELETS FEW; PLATELET ESTIMATE NORMAL
[2020-11-08] MEDS: morphine 10mg/ml inj. IV PRN ×2 (11:36→19:24)
[2020-11-08 12:33] VITALS: BP 140/86
[2020-11-08 15:41] VITALS: BP 150/82
[2020-11-08 18:00] VITALS: BP 168/88
--- NOTE | 2020-11-08 18:26 | NUR ---
Problems reprioritized. Patient report given to on coming nurse Jamey questions answered & plan of care reviewed with . pt had episode of feeling short of breath and bp elevated. placed o2 at 2 liters and given hydralazine as ordered. no adverse reaction from abx. wound care done . call babb in reach
[2020-11-08] MEDS: enoxaparin 40mg/0.4ml syringe SQ SCH (19:16)
[2020-11-08] MEDS: clindamycin 150mg capsule PO SCH (19:50)
[2020-11-08] MEDS: insulin glargine (Lantus) pen - multi-dose SQ SCH (23:01)
--- NOTE | 2020-11-08 23:25 | NUR ---
Patient in room PCU 3011. I have received report from Jamey SUBRAMANIAN and had the opportunity to ask questions and assume patient care.
[2020-11-08 23:30] VITALS: BP 153/86
[2020-11-09] MEDS: clindamycin 150mg capsule PO SCH ×3 (01:39→13:46)
[2020-11-09] MEDS: ondansetron/PF 4mg/2ml inj IV PRN (04:06)
--- NOTE | 2020-11-09 06:20 | NUR ---
Problems reprioritized. Patient report given, questions answered & plan of care reviewed with Connie SUBRAMANIAN.
--- NOTE | 2020-11-09 06:47 | NUR ---
Patient in room [facility] 351. I have received report from Daina SUBRAMANIAN and had the opportunity to ask questions and assume patient care.
[2020-11-09 07:00] VITALS: BP 152/88
[2020-11-09] MEDS: NUT.TX.GLUC.INTOLER,LAC-FR,SOY (GLUCERNA) 237 ML PO SCH ×2 (08:00→13:41)
[2020-11-09] MEDS: K and/or MAG REPLACEMENT MC SCH ×2 (08:00)
[2020-11-09] MEDS: pantoprazole 40mg Tablet.DR PO SCH (09:28)
[2020-11-09] MEDS: lactobacillus rhamnosus 10,000 MMU CELLS/CAPSULE PO SCH (09:29)
[2020-11-09] MEDS: propranolol 10mg tablet PO SCH (09:29)
[2020-11-09] MEDS: HYDROcodone/acetaminophen 5mg/325mg tablet PO PRN (09:30)
[2020-11-09] MEDS: lisinopril 10 MG tablet PO SCH (09:32)
[2020-11-09] MEDS: insulin Lispro (HumaLOG) vial - multi-dose SQ SCH ×2 (09:40→13:46)
[2020-11-09 11:00] VITALS: BP 130/62
[2020-11-09] MEDS ORDERED: HYDR-3965 PO (11:00)
[2020-11-09] MEDS ORDERED: PROP10TA10 PO (11:00)
[2020-11-09] MEDS ORDERED: LISI10TA27 PO (11:00)
[2020-11-09] MEDS ORDERED: CLE150C PO (11:00)
--- NOTE | 2020-11-09 18:43 | NUR ---
Midline canula intact. Patient discharged home with family member. Patient stated she had belongings. Wound care dressing care was demonstrated
== END 2020-11-09 15:51 | disposition home or self-care (01) | DRG 853 ==
LOC: ER 20:11 → ED HOLD 23:32 → SUR 3N 10-30 00:22 → PCU 3S 10-30 15:04 → SUR 3N 11-08 23:41
PROVIDERS: ADMIT Internal Medicine; ATTEND Internal Medicine
PROC: 0JB70ZZ Excision of Back Subcutaneous Tissue and Fascia, Open Approach (ICD-10-PCS; principal; 2020-11-05 08:02)
DX: A41.9 Sepsis, unspecified organism (principal); E11.10 Type 2 diabetes mellitus with ketoacidosis without coma; L03.313 Cellulitis of chest wall; E87.1 Hypo-osmolality and hyponatremia; L02.213 Cutaneous abscess of chest wall; N61.1 Abscess of the breast and nipple; B95.62 Methicillin resistant Staphylococcus aureus infection as the cause of diseases classified elsewhere; E66.01 Morbid (severe) obesity due to excess calories; G89.29 Other chronic pain; R65.20 Severe sepsis without septic shock; E87.6 Hypokalemia; Z20.822 Contact with and (suspected) exposure to COVID-19; I10 Essential (primary) hypertension; K29.00 Acute gastritis without bleeding; Z79.899 Other long term (current) drug therapy; Z85.42 Personal history of malignant neoplasm of other parts of uterus; Z85.43 Personal history of malignant neoplasm of ovary; Z90.710 Acquired absence of both cervix and uterus; Z68.36 Body mass index [BMI] 36.0-36.9, adult; Z88.0 Allergy status to penicillin; Z88.5 Allergy status to narcotic agent; Z91.19 Patient's noncompliance with other medical treatment and regimen
CPT/HCPCS: 96374; 96375; 99285; Z7506; 36415; 36600; 71046; 71250; 76642; 76937; 80048; 80053; 80202; 80305; 81001; 81025; 82803; 82948; 83036; 83605; 83690; 83735; 84100; 84132; 84145; 85007; 85018; 85025; 85610; 87040; 87070; 87075; 87077; 87081; 87102; 87186; 87426; A4618; A6253; A6446; A6449; A7000; C9113; G0378; J0360; J0690; J0692; J1650; J1815; J1940; J2175; J2250; J2270; J2405; J2543; J2704; J2710; J2765; J3010; J3360; J3370; J3475; J3480; J3490; J7030; J7040; J7050; J7120; Q0164

== ENCOUNTER 2020-11-11 10:29 | Emergency (ER) | payer MEDICAID, OTHER ==
[~2020-11-11] VITALS: Ht 170.2 cm; Wt 108.6 kg
[~2020-11-11 10:29] MED LIST changes: +CLE150C PO; -COROTSUS OT; +HYDR-3965 PO; +LISI10TA27 PO; -MECL-226 PO; -ONDA4TAB6 PO; -ONDA8TAB6 PO; -PROC25SU31 RC; +PROP10TA10 PO
[2020-11-11 11:41] LABS: BASOPHILS % (AUTO) 0.3 % (0-1); EOSINOPHILS % (AUTO) 0.1 % (0-6); HEMATOCRIT 32.5 % (35.0-45.0); HEMOGLOBIN 10.8 g/dl (12.0-16.0); LYMPHOCYTES # (AUTO) 0.7 X10'3 (1.1-4.8); LYMPHOCYTES % (AUTO) 15.2 % (21-51); MEAN CORPUSCULAR HEMOGLOBIN 28.4 PG (27.0-31.0); MEAN CORPUSCULAR HGB CONC 33.3 g/dL (33.0-36.5); MEAN CORPUSCULAR VOLUME 85.5 FL (78-98); MEAN PLATELET VOLUME 7.8 FL (7.4-10.4); MONOCYTES # (AUTO) 0.4 X10'3 (0-0.9); MONOCYTES % (AUTO) 8.2 % (2-12); NEUTROPHILS # (AUTO) 3.7 X10'3 (1.8-7.7); NEUTROPHILS % (AUTO) 76.2 % (42-75); PLATELET COUNT 233 X10'3 (140-440); RED CELL DISTRIBUTION WIDTH 13.8 % (11.5-14.5); WHITE BLOOD COUNT 4.8 X10'3 (4.5-11.0)
[2020-11-11 12:02] LABS: ALANINE AMINOTRANSFERASE 10 U/L (12-78); ALBUMIN 1.8 G/DL (3.4-5.0); ALBUMIN/GLOBULIN RATIO 0.4 (1.1-1.5); ALKALINE PHOSPHATASE 143 IU/L (46-116); ANION GAP 7 (8-16); ASPARTATE AMINO TRANSFERASE 27 U/L (10-37); BILIRUBIN,TOTAL 0.4 MG/DL (0.1-1.0); BLOOD UREA NITROGEN 9 MG/DL (7-18); BUN/CREATININE RATIO 9.5 (6.6-38.0); CALCIUM 8.7 MG/DL (8.5-10.1); CHLORIDE 101 MMOL/L (99-107); CREATININE 0.95 MG/DL (0.40-0.90); GLUCOSE 331 MG/DL (70-104); POTASSIUM 3.6 MMOL/L (3.5-5.1); SODIUM 140 MMOL/L (135-145); TOTAL CARBON DIOXIDE 31.9 MMOL/L (24-32); TOTAL PROTEIN 6.5 G/DL (6.4-8.2); eGFR 63 ML/MIN
[2020-11-11] MEDS ORDERED: normal saline 1000ML IV soln IVB ONE (12:40)
[2020-11-11] MEDS ORDERED: ondansetron/PF 4mg/2ml inj IV ONE (12:40)
[2020-11-11] MEDS ORDERED: proCHLORperazine 10 MG/2 ml inj IV ONE (12:40)
[2020-11-11] MEDS ORDERED: metFORMIN 500mg tablet PO ONE (12:40)
[2020-11-11] MEDS ORDERED: METF-438 PO (12:47)
[2020-11-11 13:29] VITALS: BP 164/94
== END 2020-11-11 13:53 | disposition home or self-care (01) ==
LOC: ER 10:32
DX: S41.102A Unspecified open wound of left upper arm, initial encounter (principal); E11.65 Type 2 diabetes mellitus with hyperglycemia; J81.1 Chronic pulmonary edema; R11.2 Nausea with vomiting, unspecified; I10 Essential (primary) hypertension; E11.9 Type 2 diabetes mellitus without complications; G89.29 Other chronic pain; Z86.14 Personal history of Methicillin resistant Staphylococcus aureus infection; Z90.710 Acquired absence of both cervix and uterus; Z98.890 Other specified postprocedural states; Z88.0 Allergy status to penicillin; Z88.5 Allergy status to narcotic agent; Z79.84 Long term (current) use of oral hypoglycemic drugs; Z79.899 Other long term (current) drug therapy; X58.XXXA Exposure to other specified factors, initial encounter; Y93.89 Activity, other specified; Y92.89 Other specified places as the place of occurrence of the external cause; Y99.8 Other external cause status
CPT/HCPCS: 36415; 71045; 80053; 82948; 83605; 84145; 85025; 87040; 93005; 96374; 96375; 99285; J0780; J2405; J7030

== ENCOUNTER → 2020-11-14 | Outpatient (CLI) | payer MEDICAID, OTHER ==
[~2020-11-14] MED LIST changes: +LIDOcaine 2% 5ml jelly ONE; +METF-438 PO
== END | disposition home or self-care (01) ==
LOC: EDSTATUS 12:00 → WOUND CARE 12:20
PROVIDERS: ATTEND Nurse Practitioner
DX: T81.31XD Disruption of external operation (surgical) wound, not elsewhere classified, subsequent encounter (principal); E11.622 Type 2 diabetes mellitus with other skin ulcer; L98.495 Non-pressure chronic ulcer of skin of other sites with muscle involvement without evidence of necrosis; E11.51 Type 2 diabetes mellitus with diabetic peripheral angiopathy without gangrene; E11.10 Type 2 diabetes mellitus with ketoacidosis without coma; I10 Essential (primary) hypertension; J81.1 Chronic pulmonary edema; G89.29 Other chronic pain; E87.1 Hypo-osmolality and hyponatremia; E87.6 Hypokalemia; E66.01 Morbid (severe) obesity due to excess calories; F41.9 Anxiety disorder, unspecified; Z90.710 Acquired absence of both cervix and uterus; Z79.84 Long term (current) use of oral hypoglycemic drugs; Z79.899 Other long term (current) drug therapy; Z86.14 Personal history of Methicillin resistant Staphylococcus aureus infection; Z85.42 Personal history of malignant neoplasm of other parts of uterus; Z98.890 Other specified postprocedural states; Z68.36 Body mass index [BMI] 36.0-36.9, adult; Z79.2 Long term (current) use of antibiotics; Y83.8 Other surgical procedures as the cause of abnormal reaction of the patient, or of later complication, without mention of misadventure at the time of the procedure
CPT/HCPCS: 82948; G0463

== ENCOUNTER 2020-11-18 12:03 | Emergency (ER) | payer MEDICAID, OTHER ==
[~2020-11-18] VITALS: Ht 170.2 cm; Wt 106.8 kg
[~2020-11-18 12:03] MED LIST changes: -LIDOcaine 2% 5ml jelly ONE
[2020-11-18] MEDS ORDERED: insulin regular, human U-100 3ml vial - multi-dose IV ONE (13:15)
[2020-11-18] MEDS ORDERED: normal saline 1000ML IV soln IVB ONE (13:15)
[2020-11-18 13:28] LABS: BASOPHILS # (AUTO) 0.1 X10'3 (0-0.2); BASOPHILS % (AUTO) 0.6 % (0-1); EOSINOPHILS # (AUTO) 0.1 X10'3 (0-0.9); EOSINOPHILS % (AUTO) 1.3 % (0-6); HEMATOCRIT 36.1 % (35.0-45.0); LYMPHOCYTES # (AUTO) 1.4 X10'3 (1.1-4.8); LYMPHOCYTES % (AUTO) 13.8 % (21-51); MEAN CORPUSCULAR HEMOGLOBIN 27.5 PG (27.0-31.0); MEAN CORPUSCULAR HGB CONC 33.1 g/dL (33.0-36.5); MEAN CORPUSCULAR VOLUME 83.2 FL (78-98); MEAN PLATELET VOLUME 7.7 FL (7.4-10.4); MONOCYTES # (AUTO) 0.9 X10'3 (0-0.9); NEUTROPHILS # (AUTO) 7.8 X10'3 (1.8-7.7); NEUTROPHILS % (AUTO) 75.3 % (42-75); PLATELET COUNT 396 X10'3 (140-440); RED BLOOD COUNT 4.34 X10'6 (4.20-5.60); RED CELL DISTRIBUTION WIDTH 13.8 % (11.5-14.5); WHITE BLOOD COUNT 10.3 X10'3 (4.5-11.0)
[2020-11-18 13:42] LABS: ALANINE AMINOTRANSFERASE 14 U/L (12-78); ALBUMIN 2.6 G/DL (3.4-5.0); ALBUMIN/GLOBULIN RATIO 0.6 (1.1-1.5); ALKALINE PHOSPHATASE 114 IU/L (46-116); ANION GAP 10 (8-16); ASPARTATE AMINO TRANSFERASE 22 U/L (10-37); BILIRUBIN,TOTAL 0.5 MG/DL (0.1-1.0); BLOOD UREA NITROGEN 13 MG/DL (7-18); BUN/CREATININE RATIO 13.1 (6.6-38.0); CALCIUM 9.3 MG/DL (8.5-10.1); CHLORIDE 95 MMOL/L (99-107); CREATININE 0.99 MG/DL (0.40-0.90); GLUCOSE 428 MG/DL (70-104); SODIUM 135 MMOL/L (135-145); TOTAL CARBON DIOXIDE 29.8 MMOL/L (24-32); TOTAL PROTEIN 7.1 G/DL (6.4-8.2); eGFR 60 ML/MIN
[2020-11-18 13:46] LABS: POTASSIUM 2.8 MMOL/L (3.5-5.1)
[2020-11-18] MEDS ORDERED: potassium Cl 20 mEq SR tablet PO ONE (13:55)
[2020-11-18] MEDS ORDERED: proCHLORperazine 10 MG/2 ml inj IV ONE (13:55)
[2020-11-18] MEDS ORDERED: potassium Cl 10 mEq/100mL bag IV ONE (13:55)
[2020-11-18] MEDS ORDERED: POTA-82 PO (15:15)
[2020-11-18] MEDS ORDERED: PROC5TAB56 PO (15:21)
[2020-11-18 15:25] VITALS: BP 159/94
[2020-11-21] MEDS ORDERED: LIDOcaine 4% (40 mg/ml) topical solution 50ml ONE (08:25)
== END 2020-11-18 15:27 | disposition home or self-care (01) ==
LOC: ER 12:06
DX: E11.65 Type 2 diabetes mellitus with hyperglycemia (principal); E87.6 Hypokalemia; I10 Essential (primary) hypertension; G89.29 Other chronic pain; Z86.14 Personal history of Methicillin resistant Staphylococcus aureus infection; Z90.710 Acquired absence of both cervix and uterus; Z98.890 Other specified postprocedural states; Z88.0 Allergy status to penicillin; Z88.5 Allergy status to narcotic agent; Z79.84 Long term (current) use of oral hypoglycemic drugs; Z79.899 Other long term (current) drug therapy
CPT/HCPCS: 36415; 80053; 82948; 85025; 93005; 96365; 96375; 99284; J0780; J3480; J7030; J1815

== ENCOUNTER 2020-11-23 09:21 | Outpatient (CLI) | payer MEDICAID ==
[~2020-11-23 09:21] MED LIST changes: +POTA-82 PO; +PROC5TAB56 PO
[2020-11-23 09:59] LABS: BASOPHILS # (AUTO) 0.1 X10'3 (0-0.2); BASOPHILS % (AUTO) 0.9 % (0-1); EOSINOPHILS # (AUTO) 0.3 X10'3 (0-0.9); EOSINOPHILS % (AUTO) 3.4 % (0-6); HEMATOCRIT 37.4 % (35.0-45.0); HEMOGLOBIN 12.4 g/dl (12.0-16.0); LYMPHOCYTES # (AUTO) 1.6 X10'3 (1.1-4.8); LYMPHOCYTES % (AUTO) 17.9 % (21-51); MEAN CORPUSCULAR HEMOGLOBIN 27.6 PG (27.0-31.0); MEAN CORPUSCULAR HGB CONC 33.1 g/dL (33.0-36.5); MEAN CORPUSCULAR VOLUME 83.4 FL (78-98); MEAN PLATELET VOLUME 8.3 FL (7.4-10.4); MONOCYTES % (AUTO) 11.2 % (2-12); NEUTROPHILS % (AUTO) 66.6 % (42-75); PLATELET COUNT 297 X10'3 (140-440); RED BLOOD COUNT 4.48 X10'6 (4.20-5.60); RED CELL DISTRIBUTION WIDTH 14.4 % (11.5-14.5)
[2020-11-23 10:03] LABS: CLARITY,URINE CLOUDY (Clear); COLOR,URINE YELLOW (Yellow); GLUCOSE, URINE >=1000 mg/dl (Neg); KETONES,URINE 15 mg/dl (Neg); LEUKOCYTE ESTERASE ,URINE NEGATIVE (Neg); NITRITES, URINE NEGATIVE (Neg); OCCULT BLOOD,URINE NEGATIVE (Neg); PROTEIN,URINE NEGATIVE (Neg); UA COLLECTION TYPE CLN CATCH MIDSTREAM; UROBILINOGEN,URINE 0.2 E.U/dL (0.2-1.0)
[2020-11-23 10:08] LABS: HEMOGLOBIN A1C 10.4 % (4.5-6.2)
[2020-11-23 10:25] LABS: SQUAMOUS EPITHELIAL CELL,UR MANY /LPF (FEW)
[2020-11-23 10:31] LABS: ALANINE AMINOTRANSFERASE 17 U/L (12-78); ALBUMIN/GLOBULIN RATIO 0.7 (1.1-1.5); ALKALINE PHOSPHATASE 101 IU/L (46-116); ANION GAP 11 (8-16); ASPARTATE AMINO TRANSFERASE 23 U/L (10-37); BILIRUBIN,TOTAL 0.5 MG/DL (0.1-1.0); BLOOD UREA NITROGEN 16 MG/DL (7-18); BUN/CREATININE RATIO 18.8 (6.6-38.0); CALCIUM 9.5 MG/DL (8.5-10.1); CHLORIDE 93 MMOL/L (99-107); CHOL/HDL RATIO 3.6 (0.00-4.99); CHOLESTEROL 164 MG/DL (0-200); CREATININE 0.85 MG/DL (0.40-0.90); HDL CHOLESTEROL 46 MG/DL (35-60); LDL CHOLESTEROL 78 MG/DL (50-100); POTASSIUM 3.3 MMOL/L (3.5-5.1); SODIUM 131 MMOL/L (135-145); TOTAL CARBON DIOXIDE 27.3 MMOL/L (24-32); TOTAL PROTEIN 7.2 G/DL (6.4-8.2); TRIGLYCERIDES 326 MG/DL (20-135); eGFR 72 ML/MIN
[2020-11-23 10:37] LABS: YEAST FEW /HPF (NEGATIVE)
[2020-11-23 10:39] LABS: BACTERIA,URINE FEW /HPF (Neg); RBC,URINE 0-2 /HPF (0-2); WBC,URINE 0-4 /HPF (0-4)
[2020-11-23 10:59] LABS: GLUCOSE 490 MG/DL (70-104)
== END 2020-11-23 23:59 | disposition home or self-care (01) ==
LOC: LAB 09:21
PROVIDERS: ATTEND Family Medicine
DX: Z00.01 Encounter for general adult medical examination with abnormal findings (principal)
CPT/HCPCS: 36415; 80053; 80061; 81001; 82043; 82570; 83036; 84439; 84443; 85025

== ENCOUNTER 2021-12-23 20:15 | Emergency (ER) | payer SELFPAY ==
[~2021-12-23] VITALS: Ht 170.2 cm; Wt 98.6 kg
[~2021-12-23 20:15] MED LIST changes: -HYDR-3965 PO
[2021-12-23] MEDS ORDERED: naproxen 500mg tablet PO ONE (20:45)
[2021-12-23] MEDS ORDERED: HYDROcodone/acetaminophen 10/325mg tab PO ONE (20:45)
[2021-12-23 21:13] LABS: BASOPHILS % (AUTO) 0.3 % (0-1); EOSINOPHILS # (AUTO) 0.1 X10'3 (0-0.9); EOSINOPHILS % (AUTO) 1.6 % (0-6); HEMATOCRIT 39.9 % (35.0-45.0); HEMOGLOBIN 13.5 g/dl (12.0-16.0); LYMPHOCYTES # (AUTO) 2.3 X10'3 (1.1-4.8); LYMPHOCYTES % (AUTO) 24.7 % (21-51); MEAN CORPUSCULAR HEMOGLOBIN 28.9 PG (27.0-31.0); MEAN PLATELET VOLUME 8.7 FL (7.4-10.4); MONOCYTES # (AUTO) 0.6 X10'3 (0-0.9); MONOCYTES % (AUTO) 6.9 % (2-12); NEUTROPHILS # (AUTO) 6.1 X10'3 (1.8-7.7); NEUTROPHILS % (AUTO) 66.5 % (42-75); PLATELET COUNT 222 X10'3 (140-440); RED BLOOD COUNT 4.69 X10'6 (4.20-5.60); RED CELL DISTRIBUTION WIDTH 13.7 % (11.5-14.5); WHITE BLOOD COUNT 9.2 X10'3 (4.5-11.0)
[2021-12-23 21:38] LABS: ALANINE AMINOTRANSFERASE 16 U/L (12-78); ALBUMIN 3.1 G/DL (3.4-5.0); ALBUMIN/GLOBULIN RATIO 0.9 (1.1-1.5); ALKALINE PHOSPHATASE 79 IU/L (46-116); ANION GAP 11 (8-16); ASPARTATE AMINO TRANSFERASE 14 U/L (10-37); BILIRUBIN,TOTAL 0.4 MG/DL (0.1-1.0); BLOOD UREA NITROGEN 20 MG/DL (7-18); BUN/CREATININE RATIO 22.2 (6.6-38.0); CALCIUM 9.8 MG/DL (8.5-10.1); CHLORIDE 100 MMOL/L (99-107); GLUCOSE 384 MG/DL (70-104); POTASSIUM 3.3 MMOL/L (3.5-5.1); SODIUM 136 MMOL/L (135-145); TOTAL CARBON DIOXIDE 25.4 MMOL/L (24-32); TOTAL PROTEIN 6.4 G/DL (6.4-8.2); eGFR 67 ML/MIN
[2021-12-23] MEDS ORDERED: DOXYCYCLINE 100MG CAPSULE PO STA (22:12)
[2021-12-23] MEDS ORDERED: CefTRIAXone 1000mg IM Kit (w/lidocaine diluent) IM ONE (22:15)
[2021-12-23] MEDS ORDERED: CEPH250T PO (22:17)
[2021-12-23] MEDS ORDERED: DOXY100C77 PO (22:17)
[2021-12-23] MEDS ORDERED: HYDR-3965 PO (22:17)
[2021-12-23 22:39] VITALS: BP 146/78
== END 2021-12-23 22:42 | disposition home or self-care (01) ==
LOC: ER 20:16
DX: L03.116 Cellulitis of left lower limb (principal); E11.65 Type 2 diabetes mellitus with hyperglycemia; I10 Essential (primary) hypertension; E11.9 Type 2 diabetes mellitus without complications; G89.29 Other chronic pain; Z86.14 Personal history of Methicillin resistant Staphylococcus aureus infection; Z85.43 Personal history of malignant neoplasm of ovary; Z90.710 Acquired absence of both cervix and uterus; Z98.890 Other specified postprocedural states; Z88.0 Allergy status to penicillin; Z88.5 Allergy status to narcotic agent; Z88.8 Allergy status to other drugs, medicaments and biological substances; Z79.899 Other long term (current) drug therapy
CPT/HCPCS: 36415; 73610; 80053; 84550; 85025; 85651; 96372; 99284; J0696

== ENCOUNTER 2022-09-18 07:48 | Emergency (ER) | payer SELFPAY ==
[~2022-09-18] VITALS: Ht 170.2 cm; Wt 102.5 kg
[2022-09-18 08:04] VITALS: BP 174/90
[2022-09-18 08:24] LABS: BASOPHILS % (AUTO) 0.4 % (0-1); EOSINOPHILS # (AUTO) 0.2 X10'3 (0-0.9); EOSINOPHILS % (AUTO) 2.8 % (0-6); HEMATOCRIT 45.7 % (35.0-45.0); HEMOGLOBIN 15.4 g/dl (12.0-16.0); LYMPHOCYTES # (AUTO) 1.8 X10'3 (1.1-4.8); LYMPHOCYTES % (AUTO) 24.7 % (21-51); MEAN CORPUSCULAR HEMOGLOBIN 28.6 PG (27.0-31.0); MEAN CORPUSCULAR HGB CONC 33.7 g/dL (33.0-36.5); MEAN PLATELET VOLUME 8.5 FL (7.4-10.4); MONOCYTES # (AUTO) 0.5 X10'3 (0-0.9); MONOCYTES % (AUTO) 7.2 % (2-12); NEUTROPHILS # (AUTO) 4.7 X10'3 (1.8-7.7); NEUTROPHILS % (AUTO) 64.9 % (42-75); PLATELET COUNT 235 X10'3 (140-440); RED BLOOD COUNT 5.38 X10'6 (4.20-5.60); RED CELL DISTRIBUTION WIDTH 13.5 % (11.5-14.5); WHITE BLOOD COUNT 7.2 X10'3 (4.5-11.0)
[2022-09-18 08:40] LABS: ALANINE AMINOTRANSFERASE 21 U/L (12-78); ALBUMIN 3.6 G/DL (3.4-5.0); ALBUMIN/GLOBULIN RATIO 0.9 (1.1-1.5); ALKALINE PHOSPHATASE 102 IU/L (46-116); ANION GAP 11 (8-16); ASPARTATE AMINO TRANSFERASE 21 U/L (10-37); BILIRUBIN,TOTAL 0.5 MG/DL (0.1-1.0); BLOOD UREA NITROGEN 18 MG/DL (7-18); BUN/CREATININE RATIO 27.7 (6.6-38.0); CALCIUM 9.4 MG/DL (8.5-10.1); CHLORIDE 100 MMOL/L (99-107); CREATININE 0.65 MG/DL (0.40-0.90); GLUCOSE 361 MG/DL (70-104); MAGNESIUM 1.9 MG/DL (1.5-2.4); SODIUM 134 MMOL/L (135-145); TOTAL CARBON DIOXIDE 22.8 MMOL/L (24-32); TOTAL PROTEIN 7.4 G/DL (6.4-8.2); eGFR > 90 ML/MIN
[2022-09-18] MEDS ORDERED: ONDA4TAB12 PO (11:40)
[2022-09-18] MEDS ORDERED: LISI10TA27 PO (11:40)
== END 2022-09-18 11:48 | disposition home or self-care (01) ==
LOC: ER 07:49
DX: R07.89 Other chest pain (principal); Z88.0 Allergy status to penicillin; Z88.5 Allergy status to narcotic agent; Z91.09 Other allergy status, other than to drugs and biological substances; I10 Essential (primary) hypertension; E11.9 Type 2 diabetes mellitus without complications
CPT/HCPCS: 36415; 71045; 80053; 83735; 83880; 84484; 85025; 85379; 93005; 99285

== ENCOUNTER 2023-06-15 09:41 | Inpatient (IN) | payer OTHER ==
[~2023-06-15] VITALS: Ht 170.2 cm; Wt 109.5 kg
[~2023-06-15 09:41] MED LIST changes: +ONDA4TAB12 PO; +POTA-366 PO; -POTA-82 PO
--- NOTE | 2023-06-15 10:07 | NUR ---
ERWIN SAMS OBTAINING IV AND COLLECTING BLOOD FOR LABS AT THIS TIME.
[2023-06-15] MEDS ORDERED: normal saline 1000ml 1,000 ML IV ONE (10:15)
[2023-06-15] MEDS ORDERED: ondansetron/PF 4mg/2ml inj IM ONE (10:20)
[2023-06-15 10:32] LABS: ALANINE AMINOTRANSFERASE 17 U/L (12-78); ALBUMIN 2.5 G/DL (3.4-5.0); ALBUMIN/GLOBULIN RATIO 0.6 (1.1-1.5); ALKALINE PHOSPHATASE 104 IU/L (46-116); ANION GAP 19 (8-16); ASPARTATE AMINO TRANSFERASE 21 U/L (10-37); BILIRUBIN,TOTAL 0.6 MG/DL (0.1-1.0); BLOOD UREA NITROGEN 9 MG/DL (7-18); BUN/CREATININE RATIO 9.8 (10.0-20.0); CHLORIDE 99 MMOL/L (99-107); CREATININE 0.92 MG/DL (0.40-0.90); LIPASE < 50 U/L (73-393); POTASSIUM 3.6 MMOL/L (3.5-5.1); SODIUM 133 MMOL/L (135-145); TOTAL CARBON DIOXIDE 15.2 MMOL/L (24-32); TOTAL PROTEIN 6.5 G/DL (6.4-8.2); eCRCL 72 ML/MIN; eGFR 65 ML/MIN
[2023-06-15 10:34] LABS: BASOPHILS % (AUTO) 0.2 % (0-1); EOSINOPHILS % (AUTO) 0 % (0-6); HEMATOCRIT 38.3 % (35.0-45.0); HEMOGLOBIN 12.6 g/dl (12.0-16.0); LYMPHOCYTES # (AUTO) 0.7 X10'3 (1.1-4.8); LYMPHOCYTES % (AUTO) 5.6 % (21-51); MEAN CORPUSCULAR HEMOGLOBIN 28.6 PG (27.0-31.0); MEAN CORPUSCULAR HGB CONC 32.9 g/dL (33.0-36.5); MEAN CORPUSCULAR VOLUME 86.9 FL (78-98); MEAN PLATELET VOLUME 9.5 FL (7.4-10.4); MONOCYTES % (AUTO) 8.3 % (2-12); NEUTROPHILS # (AUTO) 9.9 X10'3 (1.8-7.7); NEUTROPHILS % (AUTO) 85.9 % (42-75); PLATELET COUNT 183 X10'3 (140-440); RED BLOOD COUNT 4.41 X10'6 (4.20-5.60); RED CELL DISTRIBUTION WIDTH 14.1 % (11.5-14.5); WHITE BLOOD COUNT 11.5 X10'3 (4.5-11.0)
[2023-06-15 10:37] LABS: GLUCOSE 455 MG/DL (70-104)
[2023-06-15] MEDS ORDERED: potassium Cl 40MEQ/1/2NS 520ml 520 ML IV PRN ×3 (10:40→17:10)
[2023-06-15] MEDS ORDERED: Neutra Phos packet PO PRN (10:40)
[2023-06-15] MEDS ORDERED: insulin regular, human U-100 3ml vial - multi-dose IV PRN ×2 (10:40→17:10)
[2023-06-15] MEDS ORDERED: sodium bicarbonate (8.4%) inj. 50 MEQ in dextrose 5% water 500ml 250 ML IV PRN ×2 (10:40→17:10)
[2023-06-15] MEDS ORDERED: ketorolac trometh. 30mg/ml inj. IV ONE (10:40)
[2023-06-15] MEDS ORDERED: sodium phosphate inj. 30 MMOL in dextrose 5%-water 250 ML IV PRN ×2 (10:40→17:10)
[2023-06-15] MEDS ORDERED: normal saline 1000ml 1,000 ML IV SCH (10:40)
[2023-06-15] MEDS ORDERED: potassium Cl 20 mEq SR tablet PO PRN ×6 (10:40→17:10)
[2023-06-15] MEDS ORDERED: metoclopramide 5 mg/ml inj IV ONE (10:40)
[2023-06-15] MEDS ORDERED: potassium CL 20mEq in D5-1/2NS 1,000 ML IV PRN (10:40)
[2023-06-15] MEDS ORDERED: sodium bicarbonate (8.4%) inj. 100 MEQ in dextrose 5% water 500ml 500 ML IV PRN ×2 (10:40→17:10)
[2023-06-15] MEDS ORDERED: sodium phosphate inj. 15 MMOL in dextrose 5%-water 250 ML IV PRN ×2 (10:40→17:10)
[2023-06-15 10:43] LABS: ACETONE SMALL (NEGATIVE)
[2023-06-15 11:00] LABS: PLATELET ESTIMATE NORMAL; TOTAL CELLS COUNTED 100
[2023-06-15] MEDS: normal saline 1000ml 1,000 ML IV SCH ×6 (11:13→21:10)
[2023-06-15] MEDS: Insulin Reg/NS 100units/100mL 100 ML IV SCH (11:33)
--- NOTE | 2023-06-15 11:49 | NUR ---
RN PERFORMED ACCUCK RESULT 356
[2023-06-15 11:51] LABS: ABG BASE EXCESS -15.4 mmol/L (-2.0-2.0); ABG HCO3 9.9 mmol/L (22.0-26.0); ABG OXYGEN SATURATION 95.8 % (94-97); ABG PCO2 (T) 22.8 mmHg (32.0-45.0); ABG PH (T) 7.256 (7.350-7.450); ABG PO2 (T) 85.9 mmHg (75.0-100.0); FCOHb 0.3 % (0.0-3.9); FHHb 4.2 % (0.0-5.0); FMetHb 0.3 % (0.0-1.5); FO2Hb 95.2 % (94-97); MODE ROOM AIR; TOTAL HEMOGLOBIN 11.8 G/dl (12.0-16.0)
[2023-06-15 12:18] LABS: BILIRUBIN,URINE NEGATIVE (Neg); CLARITY,URINE CLEAR (Clear); COLOR,URINE YELLOW (Yellow); GLUCOSE, URINE 500 mg/dl (Neg); KETONES,URINE >=80 mg/dl (Neg); LEUKOCYTE ESTERASE ,URINE NEGATIVE (Neg); NITRITES, URINE NEGATIVE (Neg); OCCULT BLOOD,URINE LARGE (Neg); PH,URINE 5.5 (4.8-8.0); PROTEIN,URINE 100 mg/dl (Neg); UROBILINOGEN,URINE 0.2 E.U/dL (0.2-1.0)
[2023-06-15 12:20] LABS: URINE HCG NEGATIVE (NEG)
[2023-06-15 12:28] LABS: UA COLLECTION TYPE CLN CATCH MIDSTREAM
[2023-06-15 12:29] LABS: BACTERIA,URINE NONE SEEN /HPF (Neg); MUCUS STRANDS FEW /LPF (Neg); SQUAMOUS EPITHELIAL CELL,UR FEW /LPF (FEW); WBC,URINE 0-4 /HPF (0-4)
[2023-06-15 13:33] LABS: ALBUMIN 2.1 G/DL (3.4-5.0); ANION GAP 17 (8-16); BLOOD UREA NITROGEN 8 MG/DL (7-18); BUN/CREATININE RATIO 8.5 (10.0-20.0); CALCIUM 8.3 MG/DL (8.5-10.1); CHLORIDE 107 MMOL/L (99-107); CREATININE 0.94 MG/DL (0.40-0.90); GLUCOSE 388 MG/DL (70-104); POTASSIUM 3.1 MMOL/L (3.5-5.1); SODIUM 137 MMOL/L (135-145); eCRCL 70 ML/MIN; eGFR 63 ML/MIN
[2023-06-15 13:35] LABS: TOTAL CARBON DIOXIDE 13.1 MMOL/L (24-32)
--- NOTE | 2023-06-15 13:40 | NUR ---
PT CO2 13.1. RN NOTIFIED DR MONET.
[2023-06-15] MEDS ORDERED: morphine 4 MG/ML inj SYRINge IV ONE (15:25)
[2023-06-15] MEDS ORDERED: ondansetron/PF 4mg/2ml inj IV ONE (15:25)
--- NOTE | 2023-06-15 15:25 | NUR ---
PER DR WALKER RN MAY ORD 4MG ZOFRAN AND 4MG MORPHINE IV ONCE AND ADMIN.
[2023-06-15] MEDS ORDERED: iohexol 300mg/ml 100ml inj. ONE (15:56)
--- NOTE | 2023-06-15 15:59 | NUR ---
RN CONFIRMED WITH PHARM THAT RN TO CONT INSULIN INFUSION WITHOUT GIVING BOLUS OR INCREASING RATE D/T BG DECREASED AT LEAST 50 MG/DL IN FIRST HOUR. RN WILL CONT TO MONITOR.
--- NOTE | 2023-06-15 16:46 | NUR ---
PT BG INCREASED TO 303. RN CK WITH CHIEF UNIT FORESTER SADIE AND PT INSULIN INFUSION WILL BE INCREASED TO 10 UNITS PER HOUR BUT NO BOLUS WILL BE GIVEN. RN WILL CONT TO MONITOR.
[2023-06-15] MEDS ORDERED: ondansetron/PF 4mg/2ml inj IV PRN (17:10)
[2023-06-15] MEDS ORDERED: mag hydrox/Alum hydrox/simeth 30ml oral suspension PO PRN (17:10)
[2023-06-15] MEDS ORDERED: Insulin Reg/NS 100units/100mL 100 ML IV SCH (17:10)
[2023-06-15] MEDS ORDERED: magnesium 4gm in 100ml NS 100 ML IV PRN (17:10)
[2023-06-15] MEDS ORDERED: magnesium hydroxide 30ml (MOM) UD suspension PO PRN (17:10)
[2023-06-15] MEDS ORDERED: magnesium 2GM in 50ml NS 50 ML IV PRN (17:10)
[2023-06-15] MEDS ORDERED: acetaminophen 325mg tablet PO PRN (17:10)
[2023-06-15] MEDS ORDERED: morphine 2 MG/ML inj. syringe IV PRN (17:10)
--- NOTE | 2023-06-15 17:53 | NUR ---
RN PERFORMED ACCUCK RESULT 272.
--- NOTE | 2023-06-15 18:08 | NUR ---
RN PAGED DR WALKER AND PER DR WALKER DO NOT ADMIN DUP ORD FOR 2000 CC BOLUS OF NS D/T IT HAS ALREADY BEEN GIVEN.
[2023-06-15 18:44] LABS: ALBUMIN 2.2 G/DL (3.4-5.0); ANION GAP 16 (8-16); BLOOD UREA NITROGEN 10 MG/DL (7-18); BUN/CREATININE RATIO 9.3 (10.0-20.0); CALCIUM 8.6 MG/DL (8.5-10.1); CHLORIDE 107 MMOL/L (99-107); CREATININE 1.07 MG/DL (0.40-0.90); GLUCOSE 313 MG/DL (70-104); SODIUM 139 MMOL/L (135-145); TOTAL CARBON DIOXIDE 16.4 MMOL/L (24-32); eCRCL 62 ML/MIN; eGFR 55 ML/MIN
[2023-06-15 18:53] LABS: PHOSPHORUS 1.2 MG/DL (2.3-4.5)
[2023-06-15] MEDS: potassium Cl 40MEQ/1/2NS 520ml 520 ML IV PRN (19:21)
[2023-06-15 19:40] LABS: ALBUMIN 2.1 G/DL (3.4-5.0); ANION GAP 10 (8-16); BLOOD UREA NITROGEN 10 MG/DL (7-18); BUN/CREATININE RATIO 8.2 (10.0-20.0); CALCIUM 8.5 MG/DL (8.5-10.1); CHLORIDE 109 MMOL/L (99-107); CREATININE 1.22 MG/DL (0.40-0.90); GLUCOSE 266 MG/DL (70-104); SODIUM 139 MMOL/L (135-145); TOTAL CARBON DIOXIDE 20.1 MMOL/L (24-32); eCRCL 54 ML/MIN; eGFR 47 ML/MIN
[2023-06-15 19:46] LABS: PHOSPHORUS 0.9 MG/DL (2.3-4.5); POTASSIUM 2.9 MMOL/L (3.5-5.1)
[2023-06-15] MEDS: morphine 2 MG/ML inj. syringe IV PRN (19:48)
[2023-06-15] MEDS: K and/or MAG REPLACEMENT MC SCH (20:00)
[2023-06-15] MEDS: docusate sod 100mg capsule PO SCH (20:00)
[2023-06-15] MEDS ORDERED: K and/or MAG REPLACEMENT MC SCH ×2 (20:00)
--- NOTE | 2023-06-15 20:05 | NUR ---
New orders from hospitalist for Zofran 4 mg IV PRN Q4H. For patient nausea
[2023-06-15] MEDS: ondansetron/PF 4mg/2ml inj IV PRN (20:15)
[2023-06-15] MEDS: Neutra Phos packet PO PRN (20:25)
--- NOTE | 2023-06-15 20:54 | NUR ---
FLOATING HELPING WITH PT NEEDED ACCU CHECK ECT
[2023-06-15] MEDS: potassium CL 20mEq in D5-1/2NS 1,000 ML IV PRN (21:10)
[2023-06-15 21:35] LABS: ALBUMIN 2.3 G/DL (3.4-5.0); ANION GAP 8 (8-16); BLOOD UREA NITROGEN 11 MG/DL (7-18); BUN/CREATININE RATIO 9.3 (10.0-20.0); CHLORIDE 110 MMOL/L (99-107); CREATININE 1.18 MG/DL (0.40-0.90); GLUCOSE 196 MG/DL (70-104); POTASSIUM 3.3 MMOL/L (3.5-5.1); SODIUM 140 MMOL/L (135-145); TOTAL CARBON DIOXIDE 22.4 MMOL/L (24-32); eCRCL 56 ML/MIN; eGFR 49 ML/MIN
--- NOTE | 2023-06-15 21:40 | NUR ---
FLOATING AND HELPING WITH PATIENT NEEDED
[2023-06-15] MEDS: metoclopramide 5 mg/ml inj IV PRN (21:49)
[2023-06-16 01:45] LABS: ALANINE AMINOTRANSFERASE 13 U/L (12-78); ALBUMIN/GLOBULIN RATIO 0.5 (1.1-1.5); ALKALINE PHOSPHATASE 95 IU/L (46-116); ANION GAP 9 (8-16); ASPARTATE AMINO TRANSFERASE 22 U/L (10-37); BILIRUBIN,TOTAL 0.4 MG/DL (0.1-1.0); BLOOD UREA NITROGEN 14 MG/DL (7-18); BUN/CREATININE RATIO 13.1 (10.0-20.0); CALCIUM 8.5 MG/DL (8.5-10.1); CHLORIDE 110 MMOL/L (99-107); CREATININE 1.07 MG/DL (0.40-0.90); GLUCOSE 137 MG/DL (70-104); POTASSIUM 3.5 MMOL/L (3.5-5.1); SODIUM 138 MMOL/L (135-145); TOTAL CARBON DIOXIDE 19.1 MMOL/L (24-32); TOTAL PROTEIN 5.8 G/DL (6.4-8.2); eCRCL 62 ML/MIN; eGFR 55 ML/MIN
[2023-06-16 01:56] LABS: PHOSPHORUS 1.2 MG/DL (2.3-4.5)
[2023-06-16] MEDS: Neutra Phos packet PO PRN (03:13)
[2023-06-16] MEDS: morphine 2 MG/ML inj. syringe IV PRN ×3 (03:53→13:29)
[2023-06-16] MEDS: normal saline 1000ml 1,000 ML IV SCH ×5 (05:10→21:10)
[2023-06-16 05:55] LABS: ALANINE AMINOTRANSFERASE 15 U/L (12-78); ALBUMIN 1.9 G/DL (3.4-5.0); ALBUMIN/GLOBULIN RATIO 0.5 (1.1-1.5); ALKALINE PHOSPHATASE 86 IU/L (46-116); ANION GAP 11 (8-16); ASPARTATE AMINO TRANSFERASE 26 U/L (10-37); BILIRUBIN,TOTAL 0.2 MG/DL (0.1-1.0); BLOOD UREA NITROGEN 15 MG/DL (7-18); BUN/CREATININE RATIO 15.6 (10.0-20.0); CHLORIDE 112 MMOL/L (99-107); CREATININE 0.96 MG/DL (0.40-0.90); GLUCOSE 164 MG/DL (70-104); PHOSPHORUS 1.8 MG/DL (2.3-4.5); POTASSIUM 3.3 MMOL/L (3.5-5.1); SODIUM 140 MMOL/L (135-145); TOTAL CARBON DIOXIDE 17.4 MMOL/L (24-32); TOTAL PROTEIN 5.5 G/DL (6.4-8.2); eCRCL 69 ML/MIN; eGFR 62 ML/MIN
--- NOTE | 2023-06-16 06:59 | NUR ---
RN NOTIFIED PHARM THAT PT K 3.3 AND NEW BAG OF FLUIDS NEEDED. PER PHARM THEY WILL ADD 40MEQ K TO NEW BAG OF D5W1/2NS AND RN WILL SEND SOMEONE TO P/U.
[2023-06-16] MEDS: ondansetron/PF 4mg/2ml inj IV PRN ×3 (07:13→22:26)
[2023-06-16] MEDS: potassium Cl 40MEQ/1/2NS 520ml 520 ML IV PRN (07:18)
--- NOTE | 2023-06-16 07:47 | NUR ---
MARILYNN REQ D5W 1/2 NS [id number] K FROM PHARM AND HAVING TECH P/U
[2023-06-16] MEDS: K and/or MAG REPLACEMENT MC SCH ×2 (08:00→20:00)
[2023-06-16 08:19] LABS: BASOPHILS % (AUTO) 0.1 % (0-1); EOSINOPHILS % (AUTO) 0 % (0-6); HEMATOCRIT 34.3 % (35.0-45.0); HEMOGLOBIN 11.2 g/dl (12.0-16.0); LYMPHOCYTES # (AUTO) 1.3 X10'3 (1.1-4.8); LYMPHOCYTES % (AUTO) 8.4 % (21-51); MEAN CORPUSCULAR HEMOGLOBIN 28.6 PG (27.0-31.0); MEAN CORPUSCULAR HGB CONC 32.6 g/dL (33.0-36.5); MEAN CORPUSCULAR VOLUME 87.7 FL (78-98); MEAN PLATELET VOLUME 8.7 FL (7.4-10.4); MONOCYTES # (AUTO) 2.3 X10'3 (0-0.9); MONOCYTES % (AUTO) 14.6 % (2-12); NEUTROPHILS # (AUTO) 12.1 X10'3 (1.8-7.7); NEUTROPHILS % (AUTO) 76.9 % (42-75); PLATELET COUNT 188 X10'3 (140-440); RED BLOOD COUNT 3.91 X10'6 (4.20-5.60); RED CELL DISTRIBUTION WIDTH 14.2 % (11.5-14.5); WHITE BLOOD COUNT 15.7 X10'3 (4.5-11.0)
[2023-06-16] MEDS: potassium CL 20mEq in D5-1/2NS 1,000 ML IV PRN ×2 (08:21→14:50)
[2023-06-16 08:25] LABS: ALANINE AMINOTRANSFERASE 14 U/L (12-78); ALBUMIN 2.1 G/DL (3.4-5.0); ALBUMIN/GLOBULIN RATIO 0.5 (1.1-1.5); ALKALINE PHOSPHATASE 95 IU/L (46-116); ANION GAP 9 (8-16); ASPARTATE AMINO TRANSFERASE 24 U/L (10-37); BILIRUBIN,TOTAL 0.2 MG/DL (0.1-1.0); BLOOD UREA NITROGEN 17 MG/DL (7-18); BUN/CREATININE RATIO 19.3 (10.0-20.0); CALCIUM 9.1 MG/DL (8.5-10.1); CHLORIDE 110 MMOL/L (99-107); CREATININE 0.88 MG/DL (0.40-0.90); GLUCOSE 126 MG/DL (70-104); MAGNESIUM 1.7 MG/DL (1.5-2.4); PHOSPHORUS 1.7 MG/DL (2.3-4.5); POTASSIUM 3.6 MMOL/L (3.5-5.1); SODIUM 137 MMOL/L (135-145); TOTAL CARBON DIOXIDE 17.9 MMOL/L (24-32); TOTAL PROTEIN 6.1 G/DL (6.4-8.2); eCRCL 75 ML/MIN; eGFR 68 ML/MIN
[2023-06-16] MEDS ORDERED: glucagon, human recombinant 1mg kit SUBCUT PRN (08:55)
[2023-06-16] MEDS ORDERED: dextrose 50%-water 50ml dispensing syringe IV PRN ×2 (08:55)
[2023-06-16] MEDS ORDERED: DEXTROSE 15 GM of carb/4 tabs (each vial/BOTTLE has 4 tablets) PO PRN ×2 (08:55)
[2023-06-16] MEDS ORDERED: insulin Lispro (HumaLOG) vial - multi-dose SQ SCH (08:55)
[2023-06-16] MEDS ORDERED: MESSAGE TO PHARMACY PO ONE (08:55)
[2023-06-16] MEDS: Insulin Reg/NS 100units/100mL 100 ML IV SCH (09:39)
--- NOTE | 2023-06-16 09:42 | NUR ---
Covered RN for break. Pts BG was 110. Pt's insulin was off. K+ 20 mEq was @150ML/HR. After looking at labs, new bag of insulin was added, K+ was increased to 200ML/HR. Insulin was restarted at 5u/hr.
--- NOTE | 2023-06-16 09:55 | NUR ---
PHARM PREPARING PHOS REPLACEMENT.
[2023-06-16] MEDS: docusate sod 100mg capsule PO SCH ×2 (09:56→20:00)
[2023-06-16 10:04] LABS: PLATELET ESTIMATE NORMAL; TOTAL CELLS COUNTED 100
--- NOTE | 2023-06-16 10:31 | NUR ---
RN ATTEMPTING US IV AT THIS TIME. PT IS HARD STICK AND NEEDS NA PHOS IV.
--- NOTE | 2023-06-16 14:59 | NUR ---
RN PERFORMED ACCUCK AT 1416 AND DATA NOT TRANSFERRING. ACCUCK RESULT AT 1416 WAS 164. RN WILL CONT TO MONITOR.
--- NOTE | 2023-06-16 16:23 | NUR ---
RN COLLECTED BMP AND SENT IT TO LAB.
[2023-06-16 17:03] LABS: ALBUMIN 2.1 G/DL (3.4-5.0); ANION GAP 7 (8-16); BLOOD UREA NITROGEN 18 MG/DL (7-18); BUN/CREATININE RATIO 21.4 (10.0-20.0); CALCIUM 8.8 MG/DL (8.5-10.1); CHLORIDE 107 MMOL/L (99-107); CREATININE 0.84 MG/DL (0.40-0.90); GLUCOSE 169 MG/DL (70-104); POTASSIUM 3.5 MMOL/L (3.5-5.1); PRO BRAIN NATRIURETIC PEPTIDE 1965 PG/ML (0-125); SODIUM 135 MMOL/L (135-145); TOTAL CARBON DIOXIDE 20.7 MMOL/L (24-32); eCRCL 79 ML/MIN; eGFR 72 ML/MIN
--- NOTE | 2023-06-16 17:49 | NUR ---
RN PAGED DR WALKER TO NOTIFY HIM THAT PT CO2 20.7 AND REQ CARB CONTROLLED DIET.
[2023-06-16] MEDS: metoclopramide 5 mg/ml inj IV PRN (18:12)
[2023-06-16] MEDS: insulin glargine (Lantus) pen - multi-dose SQ SCH (21:00)
[2023-06-16] MEDS: diphenhydrAMINE 2%/zinc acetate cream TP SCH (21:00)
[2023-06-16 21:22] LABS: ANION GAP 8 (8-16); BLOOD UREA NITROGEN 18 MG/DL (7-18); BUN/CREATININE RATIO 22.5 (10.0-20.0); CALCIUM 8.7 MG/DL (8.5-10.1); CHLORIDE 105 MMOL/L (99-107); GLUCOSE 356 MG/DL (70-104); SODIUM 132 MMOL/L (135-145); TOTAL CARBON DIOXIDE 18.9 MMOL/L (24-32); eCRCL 83 ML/MIN; eGFR 76 ML/MIN
--- NOTE | 2023-06-16 21:30 | NUR ---
PT PLACED ONTO IN-PATIENT BED
--- NOTE | 2023-06-17 00:13 | NUR ---
MD INFORMED PTS K= 5.0. VO TO DC K. AND CONTINUE D5 .45NACL @150ML/HR RN INFORMED TO ADJUST IV'S
[2023-06-17] MEDS: Insulin Reg/NS 100units/100mL 100 ML IV SCH ×2 (00:33→22:40)
[2023-06-17] MEDS: normal saline 1000ml 1,000 ML IV SCH ×6 (01:10→21:10)
[2023-06-17 01:36] LABS: ALBUMIN 1.8 G/DL (3.4-5.0); ANION GAP 10 (8-16); BLOOD UREA NITROGEN 16 MG/DL (7-18); BUN/CREATININE RATIO 22.9 (10.0-20.0); CALCIUM 8.6 MG/DL (8.5-10.1); CHLORIDE 108 MMOL/L (99-107); GLUCOSE 180 MG/DL (70-104); POTASSIUM 3.5 MMOL/L (3.5-5.1); SODIUM 136 MMOL/L (135-145); TOTAL CARBON DIOXIDE 18.1 MMOL/L (24-32); eCRCL 95 ML/MIN; eGFR 89 ML/MIN
[2023-06-17] MEDS: metoclopramide 5 mg/ml inj IV PRN ×2 (01:48→10:32)
[2023-06-17] MEDS: potassium CL 20mEq in D5-1/2NS 1,000 ML IV PRN (02:09)
[2023-06-17 06:56] LABS: ALANINE AMINOTRANSFERASE 17 U/L (12-78); ALBUMIN 1.8 G/DL (3.4-5.0); ALBUMIN/GLOBULIN RATIO 0.5 (1.1-1.5); ALKALINE PHOSPHATASE 108 IU/L (46-116); ANION GAP 11 (8-16); ASPARTATE AMINO TRANSFERASE 36 U/L (10-37); BILIRUBIN,TOTAL 0.4 MG/DL (0.1-1.0); BLOOD UREA NITROGEN 15 MG/DL (7-18); BUN/CREATININE RATIO 23.4 (10.0-20.0); CALCIUM 8.6 MG/DL (8.5-10.1); CHLORIDE 108 MMOL/L (99-107); CREATININE 0.64 MG/DL (0.40-0.90); GLUCOSE 223 MG/DL (70-104); MAGNESIUM 1.3 MG/DL (1.5-2.4); POTASSIUM 3.6 MMOL/L (3.5-5.1); SODIUM 136 MMOL/L (135-145); TOTAL PROTEIN 5.5 G/DL (6.4-8.2); eCRCL 103 ML/MIN; eGFR > 90 ML/MIN
[2023-06-17 07:16] VITALS: BP 174/91; PULSE 100; RESP 30; TEMP 98.6; O2SAT 100
[2023-06-17] MEDS: diphenhydrAMINE 2%/zinc acetate cream TP SCH ×3 (08:00→21:00)
[2023-06-17] MEDS: K and/or MAG REPLACEMENT MC SCH ×2 (08:00→20:14)
[2023-06-17] MEDS: docusate sod 100mg capsule PO SCH ×2 (08:00→20:00)
--- NOTE | 2023-06-17 08:43 | NUR ---
Pt's Left UE PIV found pulled out on bed upon arrival from ER, insulin GTT off. Two RNs have assessed patient for IV assess without success. Spoke with Cyndie in the ED twice, states "options for IV access with ultrasound have been exhausted" and recommended contacting PICC RN. Paged PICC RN.
[2023-06-17] MEDS: ondansetron/PF 4mg/2ml inj IV PRN (09:28)
[2023-06-17] MEDS: propranolol 10mg tablet PO SCH ×2 (09:30→20:09)
[2023-06-17] MEDS: lisinopril 10 MG tablet PO SCH (09:30)
--- NOTE | 2023-06-17 09:30 | NUR ---
PAGER ID: [phone] MESSAGE: [phone]. Oralia Jackson. Pt's CO2 is 15. How would you like to proceed? Pt does have IV access x2. Michelle [phone]
[2023-06-17 09:46] LABS: BASOPHILS % (AUTO) 0.2 % (0-1); EOSINOPHILS # (AUTO) 0.1 X10'3 (0-0.9); EOSINOPHILS % (AUTO) 0.8 % (0-6); HEMATOCRIT 34.8 % (35.0-45.0); LYMPHOCYTES # (AUTO) 1.5 X10'3 (1.1-4.8); LYMPHOCYTES % (AUTO) 9.7 % (21-51); MEAN CORPUSCULAR HEMOGLOBIN 27.5 PG (27.0-31.0); MEAN CORPUSCULAR HGB CONC 31.6 g/dL (33.0-36.5); MEAN PLATELET VOLUME 10.3 FL (7.4-10.4); MONOCYTES # (AUTO) 1.4 X10'3 (0-0.9); MONOCYTES % (AUTO) 8.5 % (2-12); NEUTROPHILS # (AUTO) 12.9 X10'3 (1.8-7.7); NEUTROPHILS % (AUTO) 80.8 % (42-75); PLATELET COUNT 201 X10'3 (140-440); RED CELL DISTRIBUTION WIDTH 14.8 % (11.5-14.5)
[2023-06-17 10:01] LABS: ALBUMIN 1.9 G/DL (3.4-5.0); ANION GAP 12 (8-16); BLOOD UREA NITROGEN 15 MG/DL (7-18); BUN/CREATININE RATIO 23.1 (10.0-20.0); CALCIUM 9.4 MG/DL (8.5-10.1); CHLORIDE 105 MMOL/L (99-107); CREATININE 0.65 MG/DL (0.40-0.90); GLUCOSE 259 MG/DL (70-104); POTASSIUM 3.9 MMOL/L (3.5-5.1); SODIUM 132 MMOL/L (135-145); eCRCL 102 ML/MIN; eGFR > 90 ML/MIN
[2023-06-17 11:00] VITALS: BP 148/80; PULSE 88; RESP 18; TEMP 98.4; O2SAT 96
[2023-06-17] MEDS: sodium bicarbonate (8.4%) inj. 100 MEQ in dextrose 5%-water 1,000 ML IV SCH ×2 (11:31→21:20)
--- NOTE | 2023-06-17 12:02 | NUR ---
PAGER ID: [phone] MESSAGE: [phone]. Oralia Jackson. Pt still continues to have no relief from nausea with Zofran and Reglan. Could we order Compazine? Michelle [phone]
[2023-06-17] MEDS ORDERED: proCHLORperazine 10 MG/2 ml inj IV PRN (12:15)
[2023-06-17] MEDS ORDERED: NO HOME MEDS (12:31)
[2023-06-17] MEDS: morphine 2 MG/ML inj. syringe IV PRN (12:37)
--- NOTE | 2023-06-17 14:43 | NUR ---
PAGE SENT LAB UNABLE TO DRAW BLOOD FOR [address] WALKER IF IT WOULD BE OK TO DRAW LABS FROM PIV, PT SAID THAT'S HOW IT WAS DONE IN ER.
[2023-06-17 14:45] VITALS: BP 145/82; PULSE 84; RESP 40; TEMP 98.7; O2SAT 98
--- NOTE | 2023-06-17 15:16 | NUR ---
Initial: Pt admit DX DKA, R kidney subcapsular hematoma, hypokalemia, mild RAMESH, and leukocytosis from DKA per EMR. Pt hx N/V NPS not taking DM meds recently takes metformin BID at home per EMR. No A1C this admit w/ last 10.4% 11/23/2020 in EMR; JACOBO d/w RN regarding A1C this admit if DO agreeable given DX. Pt advanced to carb controlled diet WB 06/17 though actually remains NPO restarted on insulin drip as well as Na-bicarb/D5W at 100ml/hr (408 kcals/day) this AM per EMR. LBM 06/16. Will monitor for A1C results, PO advancement, and further nutrition intervention needs this admit. Rec: 1. continue carb controlled diet 2. monitor initial PO trends for ONS needs 3. bowel care per rx 4. scaled wt this admit; subsequent weekly wt 5. monitor A1C result and appropriateness for DM ed this admit Addendum: 06/17/23 at [address] Amended: Links added.
--- NOTE | 2023-06-17 15:56 | NUR ---
PAGE SENT PAGER ID: [phone] MESSAGE: [phone], ALMAS DUMONT, NO ONE HERE TO DRAW LABS. ANGIO IS GONE FOR THE DAY, STAFF HAVE TRIED. ER SAYS THE ONLY WAY THEY COULD GET LABS WAS THROUGH THE PIV. REQUESTING PERMISSION TO DRAW FROM PIV FOR SAFE DKA CARE. THANK YOU, FABIO [phone]
[2023-06-17 15:59] LABS: HEMOGLOBIN A1C > 12.0 % (4.5-6.2)
[2023-06-17] MEDS ORDERED: LORazepam 2 mg/ml vial IV ONE (16:30)
[2023-06-17 18:00] VITALS: BP 129/59; PULSE 89; RESP 20; TEMP 97.6; O2SAT 99
[2023-06-17 18:10] LABS: ALBUMIN 1.7 G/DL (3.4-5.0); ANION GAP 9 (8-16); BLOOD UREA NITROGEN 14 MG/DL (7-18); BUN/CREATININE RATIO 21.2 (10.0-20.0); CALCIUM 8.8 MG/DL (8.5-10.1); CHLORIDE 105 MMOL/L (99-107); CREATININE 0.66 MG/DL (0.40-0.90); GLUCOSE 191 MG/DL (70-104); MAGNESIUM 1.8 MG/DL (1.5-2.4); POTASSIUM 3.3 MMOL/L (3.5-5.1); SODIUM 134 MMOL/L (135-145); TOTAL CARBON DIOXIDE 20.4 MMOL/L (24-32); eCRCL 100 ML/MIN; eGFR > 90 ML/MIN
--- NOTE | 2023-06-17 18:52 | NUR ---
ORIENTEE documentation: I have reviewed and agree with all interventions, assessments performed and documented by MARILYNN RICHARDS . ORIENTEE Medication Administration: For this medication-pass time frame, all medication were reviewed, dispensed, administered and documented per hospital policy by MARILYNN RICHARDS. Problems reprioritized. Patient report given, questions answered & plan of care reviewed with MARILYNN FOX.
--- NOTE | 2023-06-17 18:54 | NUR ---
Patient in room PCU 3009. I have received report from Vivian SUBRAMANIAN, and had the opportunity to ask questions and assume patient care.
--- NOTE | 2023-06-17 20:36 | NUR ---
Spoke with provider Suhas regarding anion gap level of 9 and carbon dioxide level of 20.4. Provider stated to give pt something to eat and monitor for an hour. If pt is doing well may go ahead and discontinue insuln dripp and proceed with hypo/hyperglycenic protocol.
[2023-06-17] MEDS: insulin glargine (Lantus) pen - multi-dose SQ SCH (21:00)
[2023-06-17 21:36] LABS: ALBUMIN 1.8 G/DL (3.4-5.0); ANION GAP 7 (8-16); BLOOD UREA NITROGEN 15 MG/DL (7-18); CALCIUM 8.6 MG/DL (8.5-10.1); CHLORIDE 106 MMOL/L (99-107); GLUCOSE 145 MG/DL (70-104); POTASSIUM 3.4 MMOL/L (3.5-5.1); SODIUM 136 MMOL/L (135-145); TOTAL CARBON DIOXIDE 23.2 MMOL/L (24-32); eCRCL 110 ML/MIN; eGFR > 90 ML/MIN
[2023-06-17 22:00] VITALS: BP 127/64; PULSE 77; RESP 16; TEMP 99.4; O2SAT 93
[2023-06-17] MEDS ORDERED: potassium Cl 20mEq in NS 1,000 ML IV SCH (23:15)
[2023-06-18] MEDS: normal saline 1000ml 1,000 ML IV SCH (01:10)
[2023-06-18 01:45] LABS: ALBUMIN 1.6 G/DL (3.4-5.0); ANION GAP 10 (8-16); BLOOD UREA NITROGEN 17 MG/DL (7-18); BUN/CREATININE RATIO 25.4 (10.0-20.0); CALCIUM 8.5 MG/DL (8.5-10.1); CHLORIDE 105 MMOL/L (99-107); CREATININE 0.67 MG/DL (0.40-0.90); GLUCOSE 173 MG/DL (70-104); POTASSIUM 3.7 MMOL/L (3.5-5.1); SODIUM 136 MMOL/L (135-145); TOTAL CARBON DIOXIDE 21.3 MMOL/L (24-32); eCRCL 99 ML/MIN; eGFR > 90 ML/MIN
[2023-06-18] MEDS ORDERED: glucagon, human recombinant 1mg kit SUBCUT PRN (05:05)
[2023-06-18] MEDS ORDERED: dextrose 50%-water 50ml dispensing syringe IV PRN ×2 (05:05)
[2023-06-18] MEDS ORDERED: MESSAGE TO PHARMACY PO ONE (05:05)
[2023-06-18] MEDS ORDERED: DEXTROSE 15 GM of carb/4 tabs (each vial/BOTTLE has 4 tablets) PO PRN ×2 (05:05)
[2023-06-18 06:00] VITALS: BP 151/89; PULSE 78; RESP 16; TEMP 97.3; O2SAT 93
--- NOTE | 2023-06-18 06:00 | NUR ---
Patient in room PCU 3009. I have received report from Socorro SUBRAMANIAN and had the opportunity to ask questions and assume patient care.
[2023-06-18 06:06] LABS: BASOPHILS % (AUTO) 0.3 % (0-1); EOSINOPHILS # (AUTO) 0.2 X10'3 (0-0.9); EOSINOPHILS % (AUTO) 1.4 % (0-6); HEMATOCRIT 32.2 % (35.0-45.0); HEMOGLOBIN 10.7 g/dl (12.0-16.0); LYMPHOCYTES # (AUTO) 1.7 X10'3 (1.1-4.8); MEAN CORPUSCULAR HEMOGLOBIN 28.5 PG (27.0-31.0); MEAN CORPUSCULAR HGB CONC 33.1 g/dL (33.0-36.5); MONOCYTES # (AUTO) 1.2 X10'3 (0-0.9); MONOCYTES % (AUTO) 9.2 % (2-12); NEUTROPHILS # (AUTO) 9.3 X10'3 (1.8-7.7); NEUTROPHILS % (AUTO) 75.1 % (42-75); PLATELET COUNT 221 X10'3 (140-440); RED BLOOD COUNT 3.74 X10'6 (4.20-5.60); RED CELL DISTRIBUTION WIDTH 14.6 % (11.5-14.5); WHITE BLOOD COUNT 12.5 X10'3 (4.5-11.0)
[2023-06-18 06:12] LABS: ALANINE AMINOTRANSFERASE 33 U/L (12-78); ALBUMIN 1.7 G/DL (3.4-5.0); ALBUMIN/GLOBULIN RATIO 0.5 (1.1-1.5); ALKALINE PHOSPHATASE 159 IU/L (46-116); ANION GAP 6 (8-16); ASPARTATE AMINO TRANSFERASE 57 U/L (10-37); BILIRUBIN,TOTAL 0.6 MG/DL (0.1-1.0); BLOOD UREA NITROGEN 16 MG/DL (7-18); BUN/CREATININE RATIO 23.9 (10.0-20.0); CALCIUM 8.8 MG/DL (8.5-10.1); CHLORIDE 105 MMOL/L (99-107); CREATININE 0.67 MG/DL (0.40-0.90); GLUCOSE 203 MG/DL (70-104); MAGNESIUM 1.7 MG/DL (1.5-2.4); POTASSIUM 3.7 MMOL/L (3.5-5.1); SODIUM 134 MMOL/L (135-145); TOTAL CARBON DIOXIDE 22.7 MMOL/L (24-32); TOTAL PROTEIN 5.4 G/DL (6.4-8.2); eCRCL 99 ML/MIN; eGFR > 90 ML/MIN
--- NOTE | 2023-06-18 06:19 | NUR ---
Problems reprioritized. Patient report given, questions answered & plan of care reviewed with Ester SUBRAMANIAN. Pt stable at shift change.
[2023-06-18 08:00] VITALS: RESP 18; O2SAT 96
[2023-06-18] MEDS: K and/or MAG REPLACEMENT MC SCH ×2 (08:00→19:35)
[2023-06-18] MEDS: docusate sod 100mg capsule PO SCH ×2 (08:00→19:32)
[2023-06-18] MEDS: sodium bicarbonate (8.4%) inj. 100 MEQ in dextrose 5%-water 1,000 ML IV SCH ×2 (08:20→19:20)
[2023-06-18] MEDS: ondansetron/PF 4mg/2ml inj IV PRN ×2 (08:31→17:09)
[2023-06-18] MEDS: lisinopril 10 MG tablet PO SCH (08:31)
[2023-06-18] MEDS: propranolol 10mg tablet PO SCH ×2 (08:31→19:31)
[2023-06-18] MEDS: insulin Lispro (HumaLOG) vial - multi-dose SQ SCH ×3 (09:06→19:25)
--- NOTE | 2023-06-18 11:26 | NUR ---
PRESSURE ULCER EDUCATION: DEFINITION: A pressure ulcer is an area of skin that breaks down when you stay in one position too long. The constant pressure against the skin reduces the blood flow to that area and the affected tissue dies. CAUSES: "Being bedridden or in a wheelchair "Fragile skin "Having a chronic condition, such as diabetes or vascular disease "Inability to move certain parts of your body without assistance "Older age "Incontinence of urine or stool SYMPTOMS: "A reddened area that DOES NOT turn white when pressed on - this can be the beginning of a pressure ulcer "A blister, deep sore or a crater - these can be advanced pressure ulcers FIRST AID: "Relieve the pressure on this area "Keep the area clean and dry "Call your primary doctor if you see any of the above symptoms "DO NOT massage the area "DO NOT use a donut shaped or ring shaped pillow- these actually interfere with the blood flow and cause complications PREVENTION: "Check for pressure ulcers everyday "Change position at least every two hours to relieve pressure "Use items that help relieve pressure- pillows, sheepskin, foam padding, and powders. "Keep skin clean and dry "Eat healthy well balanced meals "Exercise daily IF YOU SEE ANY OF THESE SYMPTOMS WHILE IN THE HOSPITAL - TELL YOUR NURSE IMMEDIATELY. IF YOU SEE ANY OF THESE SYMPTOMS WHILE AT HOME OR HAVE ANY QUESTIONS OR CONCERNS ABOUT PRESSURE ULCERS - CALL YOUR PRIMARY DOCTOR IMMEDIATELY. Addendum: 06/18/23 at 1126 by Katherine Del Rosario RN Amended: Links added.
[2023-06-18 12:00] VITALS: BP 161/85; PULSE 86; RESP 20; TEMP 97.9; O2SAT 96
--- NOTE | 2023-06-18 12:47 | NUR ---
F/u 06/18: Pt A1C results >12.0%; pt seen by RD at bedside. Pt declines verbal DM diet ed at this time reports has had ed in past and previously couldn't afford Metformin BID Rx so wasn't taking any DM meds but can now afford it. Pt agreeable to written DM diet ed w/ RD contact information; RD encouraged pt to contact dietitian's office if nutrition questions/concerns. JACOBO notified CM of pt reported financial issues. Addendum: 06/18/23 at [address] Amended: Links added.
[2023-06-18 14:51] LABS: ALBUMIN 1.6 G/DL (3.4-5.0); ANION GAP 7 (8-16); BLOOD UREA NITROGEN 13 MG/DL (7-18); BUN/CREATININE RATIO 19.1 (10.0-20.0); CALCIUM 8.7 MG/DL (8.5-10.1); CHLORIDE 101 MMOL/L (99-107); CREATININE 0.68 MG/DL (0.40-0.90); GLUCOSE 310 MG/DL (70-104); POTASSIUM 3.6 MMOL/L (3.5-5.1); SODIUM 129 MMOL/L (135-145); TOTAL CARBON DIOXIDE 21.4 MMOL/L (24-32); eCRCL 97 ML/MIN; eGFR > 90 ML/MIN
[2023-06-18 18:00] VITALS: BP 162/88; PULSE 95; RESP 20; TEMP 99.2; O2SAT 97
--- NOTE | 2023-06-18 18:26 | NUR ---
Problems reprioritized. Patient report given, questions answered & plan of care reviewed with Zaira SUBRAMANIAN, patient stable at transfer of care.
[2023-06-18] MEDS ORDERED: insulin glargine (Lantus) pen - multi-dose SQ SCH (21:00)
[2023-06-18] MEDS: diphenhydrAMINE 2%/zinc acetate cream TP SCH (21:00)
[2023-06-18 22:00] VITALS: BP 132/52; PULSE 87; RESP 18; TEMP 99.1; O2SAT 98
[2023-06-18] MEDS: morphine 2 MG/ML inj. syringe IV PRN (23:24)
[2023-06-19 03:41] VITALS: BP 136/63; PULSE 82; RESP 18; TEMP 99.1; O2SAT 95
[2023-06-19] MEDS: morphine 2 MG/ML inj. syringe IV PRN (04:19)
[2023-06-19 06:00] VITALS: BP 154/82; PULSE 89; RESP 17; TEMP 98.9; O2SAT 94
--- NOTE | 2023-06-19 06:04 | NUR ---
Problems reprioritized. Patient report given, questions answered & plan of care reviewed with Ester SUBRAMANIAN and Yisel SUBRAMANIAN. Pt stable at shift change.
[2023-06-19 07:21] LABS: BASOPHILS # (AUTO) 0.1 X10'3 (0-0.2); BASOPHILS % (AUTO) 0.5 % (0-1); EOSINOPHILS # (AUTO) 0.3 X10'3 (0-0.9); EOSINOPHILS % (AUTO) 2.2 % (0-6); HEMATOCRIT 30.5 % (35.0-45.0); HEMOGLOBIN 10.1 g/dl (12.0-16.0); LYMPHOCYTES # (AUTO) 1.8 X10'3 (1.1-4.8); LYMPHOCYTES % (AUTO) 12.7 % (21-51); MEAN CORPUSCULAR HEMOGLOBIN 28.4 PG (27.0-31.0); MEAN CORPUSCULAR HGB CONC 33.1 g/dL (33.0-36.5); MEAN CORPUSCULAR VOLUME 85.8 FL (78-98); MEAN PLATELET VOLUME 8.8 FL (7.4-10.4); MONOCYTES # (AUTO) 1.6 X10'3 (0-0.9); MONOCYTES % (AUTO) 11.5 % (2-12); NEUTROPHILS # (AUTO) 10.3 X10'3 (1.8-7.7); NEUTROPHILS % (AUTO) 73.1 % (42-75); PLATELET COUNT 244 X10'3 (140-440); RED BLOOD COUNT 3.56 X10'6 (4.20-5.60); RED CELL DISTRIBUTION WIDTH 13.9 % (11.5-14.5)
[2023-06-19 07:36] LABS: ALANINE AMINOTRANSFERASE 14 U/L (12-78); ALBUMIN 1.5 G/DL (3.4-5.0); ALBUMIN/GLOBULIN RATIO 0.4 (1.1-1.5); ALKALINE PHOSPHATASE 138 IU/L (46-116); ANION GAP 7 (8-16); ASPARTATE AMINO TRANSFERASE 21 U/L (10-37); BILIRUBIN,TOTAL 0.5 MG/DL (0.1-1.0); BLOOD UREA NITROGEN 10 MG/DL (7-18); BUN/CREATININE RATIO 17.5 (10.0-20.0); CALCIUM 8.8 MG/DL (8.5-10.1); CHLORIDE 101 MMOL/L (99-107); CREATININE 0.57 MG/DL (0.40-0.90); GLUCOSE 258 MG/DL (70-104); MAGNESIUM 1.7 MG/DL (1.5-2.4); POTASSIUM 3.4 MMOL/L (3.5-5.1); SODIUM 131 MMOL/L (135-145); TOTAL CARBON DIOXIDE 23.1 MMOL/L (24-32); TOTAL PROTEIN 5.2 G/DL (6.4-8.2); eCRCL 116 ML/MIN; eGFR > 90 ML/MIN
[2023-06-19 08:00] VITALS: RESP 18; O2SAT 94
[2023-06-19] MEDS: docusate sod 100mg capsule PO SCH (08:00)
[2023-06-19 08:03] LABS: PLATELET ESTIMATE NORMAL; TOTAL CELLS COUNTED 100
[2023-06-19 08:04] LABS: ANISOCYTOSIS FEW; POIKILOCYTOSIS FEW; SMUDGE CELLS FEW
[2023-06-19] MEDS: propranolol 10mg tablet PO SCH (09:05)
[2023-06-19] MEDS: lisinopril 10 MG tablet PO SCH (09:06)
[2023-06-19 11:00] VITALS: BP 158/91; PULSE 84; RESP 16; TEMP 98.9; O2SAT 100
[2023-06-19] MEDS ORDERED: POTA-207 PO (13:16)
[2023-06-19] MEDS ORDERED: PROP10TA10 PO (13:16)
[2023-06-19] MEDS ORDERED: PROC-8 PO (13:16)
[2023-06-19] MEDS ORDERED: INSU100I61 SQ (13:16)
[2023-06-19] MEDS ORDERED: INSU100I75 SQ (13:16)
[2023-06-19] MEDS ORDERED: LISI10TA27 PO (13:16)
[2023-06-19] MEDS: insulin Lispro (HumaLOG) vial - multi-dose SQ SCH (13:37)
--- NOTE | 2023-06-19 17:40 | NUR ---
Pt stable for discharge per Dr. Lawson. All discharge instructions reviewed with patient and all questions answered, pt verbalized understanding. New meds e-scripted to [facility] in [place]. PIV discontinued, cannula intact. Tele discontinued. All belongings collected and sent with patient. Wheeled to lobby via nursing staff and picked up by roommate.
== END 2023-06-19 15:31 | disposition home or self-care (01) | DRG 637 ==
LOC: ER 09:41 → ED HOLD 17:12 → EDBEDREQ 06-17 05:24 → PCU 3S 06-17 06:55
PROVIDERS: ADMIT Family Medicine; ATTEND Family Medicine
DX: E11.10 Type 2 diabetes mellitus with ketoacidosis without coma (principal); N17.0 Acute kidney failure with tubular necrosis; E87.1 Hypo-osmolality and hyponatremia; S37.011A Minor contusion of right kidney, initial encounter; E86.0 Dehydration; E87.6 Hypokalemia; E11.65 Type 2 diabetes mellitus with hyperglycemia; X58.XXXA Exposure to other specified factors, initial encounter; D72.829 Elevated white blood cell count, unspecified; I10 Essential (primary) hypertension; Z79.4 Long term (current) use of insulin; Z83.3 Family history of diabetes mellitus; Z85.42 Personal history of malignant neoplasm of other parts of uterus; Z85.43 Personal history of malignant neoplasm of ovary; Z90.711 Acquired absence of uterus with remaining cervical stump; Z88.0 Allergy status to penicillin; Z88.5 Allergy status to narcotic agent; Z88.8 Allergy status to other drugs, medicaments and biological substances; Y93.89 Activity, other specified; Y92.89 Other specified places as the place of occurrence of the external cause; Y99.8 Other external cause status
CPT/HCPCS: 36415; 36600; 71045; 71260; 74176; 74177; 80048; 80053; 81001; 81025; 82009; 82803; 82948; 83036; 83605; 83690; 83735; 83880; 84100; 85007; 85018; 85025; 87081; 93005; 97161; 99285; A6258; A6449; G0378; J0780; J1815; J1885; J2060; J2270; J2405; J2765; J3475; J3480; J3490; J7030; J7060; J7070; Q9967

== ENCOUNTER 2023-06-26 07:36 | Emergency (ER) | payer SELFPAY ==
[~2023-06-26] VITALS: Ht 170.2 cm; Wt 120.0 kg
[~2023-06-26 07:36] MED LIST changes: -CLE150C PO; +INSU100I61 SQ; +INSU100I75 SQ; -METF-436 PO; -METF-438 PO; -ONDA4TAB12 PO; +POTA-207 PO; -POTA-366 PO; +PROC-8 PO; -PROC5TAB56 PO
[2023-06-26 08:14] LABS: BASOPHILS # (AUTO) 0.1 X10'3 (0-0.2); BASOPHILS % (AUTO) 0.6 % (0-1); EOSINOPHILS # (AUTO) 0.3 X10'3 (0-0.9); EOSINOPHILS % (AUTO) 1.7 % (0-6); HEMATOCRIT 31.2 % (35.0-45.0); HEMOGLOBIN 10.2 g/dl (12.0-16.0); LYMPHOCYTES % (AUTO) 11.7 % (21-51); MEAN CORPUSCULAR HEMOGLOBIN 27.7 PG (27.0-31.0); MEAN CORPUSCULAR HGB CONC 32.6 g/dL (33.0-36.5); MEAN CORPUSCULAR VOLUME 85.1 FL (78-98); MONOCYTES # (AUTO) 1.7 X10'3 (0-0.9); MONOCYTES % (AUTO) 10.2 % (2-12); NEUTROPHILS # (AUTO) 12.9 X10'3 (1.8-7.7); NEUTROPHILS % (AUTO) 75.8 % (42-75); PLATELET COUNT 377 X10'3 (140-440); RED BLOOD COUNT 3.67 X10'6 (4.20-5.60); RED CELL DISTRIBUTION WIDTH 14.4 % (11.5-14.5)
[2023-06-26] MEDS ORDERED: diphenhydrAMINE 50 mg/ml inj IV ONE (08:15)
[2023-06-26] MEDS ORDERED: normal saline 1000ML IV soln IVB ONE ×2 (08:15)
[2023-06-26] MEDS ORDERED: metoclopramide 5 mg/ml inj IV ONE (08:15)
[2023-06-26 08:29] LABS: ALANINE AMINOTRANSFERASE 44 U/L (12-78); ALBUMIN/GLOBULIN RATIO 0.4 (1.1-1.5); ALKALINE PHOSPHATASE 347 IU/L (46-116); ANION GAP 5 (8-16); ASPARTATE AMINO TRANSFERASE 74 U/L (10-37); BILIRUBIN,TOTAL 0.5 MG/DL (0.1-1.0); BLOOD UREA NITROGEN 12 MG/DL (7-18); BUN/CREATININE RATIO 17.1 (10.0-20.0); CALCIUM 9.6 MG/DL (8.5-10.1); CHLORIDE 95 MMOL/L (99-107); GLUCOSE 307 MG/DL (70-104); POTASSIUM 4.5 MMOL/L (3.5-5.1); SODIUM 128 MMOL/L (135-145); TOTAL CARBON DIOXIDE 27.8 MMOL/L (24-32); TOTAL PROTEIN 7.1 G/DL (6.4-8.2); eCRCL 95 ML/MIN; eGFR 89 ML/MIN
[2023-06-26 08:43] LABS: LIPASE 27 U/L (16-77)
[2023-06-26 09:01] LABS: BILIRUBIN,URINE NEGATIVE (Neg); CLARITY,URINE CLOUDY (Clear); COLOR,URINE YELLOW (Yellow); GLUCOSE, URINE 250 mg/dl (Neg); KETONES,URINE 15 mg/dl (Neg); LEUKOCYTE ESTERASE ,URINE SMALL (Neg); NITRITES, URINE NEGATIVE (Neg); OCCULT BLOOD,URINE MODERATE (Neg); PROTEIN,URINE TRACE mg/dl (Neg)
[2023-06-26 09:03] LABS: URINE HCG NEGATIVE (NEG)
[2023-06-26 09:08] LABS: UA COLLECTION TYPE CLN CATCH MIDSTREAM
[2023-06-26 09:09] LABS: BACTERIA,URINE 4+ /HPF (Neg); SQUAMOUS EPITHELIAL CELL,UR MANY /LPF (FEW); WBC CLUMPS,URINE MANY /HPF (NEGATIVE)
[2023-06-26 09:10] LABS: RBC,URINE TNTC /HPF (0-2)
[2023-06-26 09:11] LABS: TRANSITIONAL EPI CELLS,URINE MODERATE /HPF; WBC,URINE TNTC /HPF (0-4)
[2023-06-26 09:13] LABS: TRICHOMONAS,URINE FEW /HPF (NEGATIVE)
[2023-06-26] MEDS ORDERED: CefTRIAXone 2gm/D5W 50ml BAG 50 ML IV ONE (09:35)
[2023-06-26] MEDS ORDERED: CEPH250T PO (09:42)
[2023-06-26] MEDS ORDERED: ONDA4TAB12 PO (09:42)
[2023-06-26 10:14] VITALS: BP 138/94; PULSE 87; RESP 18; TEMP 98.1; O2SAT 99
== END 2023-06-26 10:15 | disposition home or self-care (01) ==
LOC: ER 07:37
DX: N39.0 Urinary tract infection, site not specified (principal); I10 Essential (primary) hypertension; E11.9 Type 2 diabetes mellitus without complications; Z04.9 Encounter for examination and observation for unspecified reason; Z88.0 Allergy status to penicillin; Z88.8 Allergy status to other drugs, medicaments and biological substances
CPT/HCPCS: 36415; 80053; 81001; 81025; 82948; 83690; 84145; 85025; 96361; 96365; 96375; 99284; J0696; J1200; J2765; J7030

== ENCOUNTER 2023-07-04 21:43 | Emergency (ER) | payer SELFPAY ==
[~2023-07-04] VITALS: Ht 170.2 cm; Wt 111.4 kg
[~2023-07-04 21:43] MED LIST changes: +ONDA4TAB12 PO
[2023-07-04 21:47] VITALS: BP 138/93; PULSE 152; RESP 16; TEMP 98.4; O2SAT 98
[2023-07-04 22:16] LABS: BILIRUBIN,URINE SMALL (Neg); CLARITY,URINE SLIGHTLY CLOUDY (Clear); COLOR,URINE YELLOW (Yellow); GLUCOSE, URINE >=1000 mg/dl (Neg); KETONES,URINE >=80 mg/dl (Neg); LEUKOCYTE ESTERASE ,URINE TRACE (Neg); NITRITES, URINE NEGATIVE (Neg); OCCULT BLOOD,URINE TRACE-INTACT (Neg); PROTEIN,URINE 30 mg/dl (Neg); URINE HCG NEGATIVE (NEG); UROBILINOGEN,URINE 0.2 E.U/dL (0.2-1.0)
[2023-07-04 22:32] LABS: UA COLLECTION TYPE CLN CATCH MIDSTREAM
[2023-07-04 22:34] LABS: WBC,URINE 30-50 /HPF (0-4)
[2023-07-04 22:35] LABS: BACTERIA,URINE 2+ /HPF (Neg); MUCUS STRANDS FEW /LPF (Neg); RENAL CELLS, URINE FEW /HPF; SQUAMOUS EPITHELIAL CELL,UR MODERATE /LPF (FEW); TRANSITIONAL EPI CELLS,URINE FEW /HPF; WBC CLUMPS,URINE FEW /HPF (NEGATIVE)
[2023-07-04 22:36] LABS: YEAST MODERATE /HPF (NEGATIVE)
[2023-07-04 23:06] LABS: BASOPHILS # (AUTO) 0.1 X10'3 (0-0.2); BASOPHILS % (AUTO) 0.7 % (0-1); EOSINOPHILS # (AUTO) 0.2 X10'3 (0-0.9); EOSINOPHILS % (AUTO) 1.5 % (0-6); HEMATOCRIT 33.7 % (35.0-45.0); HEMOGLOBIN 10.9 g/dl (12.0-16.0); LYMPHOCYTES # (AUTO) 2.8 X10'3 (1.1-4.8); MEAN CORPUSCULAR HEMOGLOBIN 26.7 PG (27.0-31.0); MEAN CORPUSCULAR HGB CONC 32.2 g/dL (33.0-36.5); MEAN CORPUSCULAR VOLUME 82.9 FL (78-98); MEAN PLATELET VOLUME 9.1 FL (7.4-10.4); MONOCYTES # (AUTO) 1.5 X10'3 (0-0.9); MONOCYTES % (AUTO) 12.6 % (2-12); NEUTROPHILS # (AUTO) 7.1 X10'3 (1.8-7.7); NEUTROPHILS % (AUTO) 61.2 % (42-75); PLATELET COUNT 493 X10'3 (140-440); RED BLOOD COUNT 4.07 X10'6 (4.20-5.60); WHITE BLOOD COUNT 11.5 X10'3 (4.5-11.0)
[2023-07-04 23:17] LABS: ALANINE AMINOTRANSFERASE 18 U/L (12-78); ALBUMIN 2.2 G/DL (3.4-5.0); ALBUMIN/GLOBULIN RATIO 0.4 (1.1-1.5); ALKALINE PHOSPHATASE 163 IU/L (46-116); ANION GAP 11 (8-16); ASPARTATE AMINO TRANSFERASE 18 U/L (10-37); BILIRUBIN,TOTAL 0.6 MG/DL (0.1-1.0); BLOOD UREA NITROGEN 11 MG/DL (7-18); BUN/CREATININE RATIO 13.1 (10.0-20.0); CALCIUM 9.6 MG/DL (8.5-10.1); CHLORIDE 92 MMOL/L (99-107); CREATININE 0.84 MG/DL (0.40-0.90); POTASSIUM 3.6 MMOL/L (3.5-5.1); SODIUM 129 MMOL/L (135-145); TOTAL CARBON DIOXIDE 25.6 MMOL/L (24-32); TOTAL PROTEIN 7.3 G/DL (6.4-8.2); eCRCL 79 ML/MIN; eGFR 72 ML/MIN
[2023-07-04 23:22] LABS: LIPASE 35 U/L (16-77)
[2023-07-04 23:27] LABS: GLUCOSE 433 MG/DL (70-104)
[2023-07-05] MEDS ORDERED: INSU100I61 SQ (15:20)
[2023-07-05] MEDS ORDERED: LISI10TA27 PO (15:20)
[2023-07-05] MEDS ORDERED: POTA-208 PO (15:20)
[2023-07-05] MEDS ORDERED: PROP10TA10 PO (15:20)
[2023-07-05] MEDS ORDERED: LANTUS SQ (15:20)
[2023-07-05] MEDS ORDERED: CEPH250C PO (15:20)
== END 2023-07-04 23:24 | disposition left against medical advice (07) ==
LOC: ER 21:44
DX: R11.10 Vomiting, unspecified (principal); R10.9 Unspecified abdominal pain; Z53.21 Procedure and treatment not carried out due to patient leaving prior to being seen by health care provider
CPT/HCPCS: 80053; 81001; 81025; 83690; 85025; 87077; 87088; 93005; 99281

== ENCOUNTER 2023-07-05 06:46 | Inpatient (IN) | payer SELFPAY ==
[~2023-07-05] VITALS: Ht 170.2 cm; Wt 99.0 kg
[2023-07-05] VITALS (12 sets, daily range): BP systolic 116–150; BP diastolic 73–102; PULSE 137–150; RESP 18–22; TEMP 98.1–99.1; O2SAT 96–98
[2023-07-05 07:47] LABS: BASOPHILS % (AUTO) 0.5 % (0-1); EOSINOPHILS # (AUTO) 0.2 X10'3 (0-0.9); HEMATOCRIT 34.9 % (35.0-45.0); HEMOGLOBIN 11.3 g/dl (12.0-16.0); LYMPHOCYTES # (AUTO) 2.3 X10'3 (1.1-4.8); LYMPHOCYTES % (AUTO) 22.7 % (21-51); MEAN CORPUSCULAR HGB CONC 32.4 g/dL (33.0-36.5); MEAN CORPUSCULAR VOLUME 83.4 FL (78-98); MEAN PLATELET VOLUME 8.4 FL (7.4-10.4); MONOCYTES # (AUTO) 1.3 X10'3 (0-0.9); MONOCYTES % (AUTO) 12.4 % (2-12); NEUTROPHILS # (AUTO) 6.3 X10'3 (1.8-7.7); NEUTROPHILS % (AUTO) 62.4 % (42-75); PLATELET COUNT 475 X10'3 (140-440); RED BLOOD COUNT 4.18 X10'6 (4.20-5.60); RED CELL DISTRIBUTION WIDTH 15.9 % (11.5-14.5); WHITE BLOOD COUNT 10.1 X10'3 (4.5-11.0)
[2023-07-05 08:02] LABS: URINE HCG NEGATIVE (NEG)
[2023-07-05 08:04] LABS: ALANINE AMINOTRANSFERASE 14 U/L (12-78); ALBUMIN 2.3 G/DL (3.4-5.0); ALBUMIN/GLOBULIN RATIO 0.4 (1.1-1.5); ALKALINE PHOSPHATASE 165 IU/L (46-116); ANION GAP 14 (8-16); ASPARTATE AMINO TRANSFERASE 18 U/L (10-37); BILIRUBIN,TOTAL 0.6 MG/DL (0.1-1.0); BLOOD UREA NITROGEN 12 MG/DL (7-18); BUN/CREATININE RATIO 13.8 (10.0-20.0); CALCIUM 9.7 MG/DL (8.5-10.1); CHLORIDE 93 MMOL/L (99-107); CREATININE 0.87 MG/DL (0.40-0.90); POTASSIUM 3.6 MMOL/L (3.5-5.1); SODIUM 131 MMOL/L (135-145); TOTAL CARBON DIOXIDE 23.7 MMOL/L (24-32); TOTAL PROTEIN 7.5 G/DL (6.4-8.2); eCRCL 76 ML/MIN; eGFR 69 ML/MIN
[2023-07-05 08:11] LABS: LIPASE 32 U/L (16-77)
[2023-07-05 08:12] LABS: GLUCOSE 420 MG/DL (70-104)
[2023-07-05 08:12] LABS: BILIRUBIN,URINE SMALL (Neg); CLARITY,URINE CLOUDY (Clear); COLOR,URINE YELLOW (Yellow); GLUCOSE, URINE 500 mg/dl (Neg); KETONES,URINE >=80 mg/dl (Neg); LEUKOCYTE ESTERASE ,URINE SMALL (Neg); NITRITES, URINE NEGATIVE (Neg); OCCULT BLOOD,URINE TRACE-INTACT (Neg); PROTEIN,URINE 30 mg/dl (Neg); UROBILINOGEN,URINE 0.2 E.U/dL (0.2-1.0)
[2023-07-05 08:29] LABS: SQUAMOUS EPITHELIAL CELL,UR MANY /LPF (FEW); UA COLLECTION TYPE CLN CATCH MIDSTREAM
[2023-07-05 08:49] LABS: TRICHOMONAS,URINE MANY /HPF (NEGATIVE)
[2023-07-05 08:50] LABS: BACTERIA,URINE 1+ /HPF (Neg); RBC,URINE 0-2 /HPF (0-2); WBC CLUMPS,URINE MANY /HPF (NEGATIVE); YEAST FEW /HPF (NEGATIVE)
[2023-07-05 08:51] LABS: WBC,URINE 50-100 /HPF (0-4)
[2023-07-05] MEDS ORDERED: diphenhydrAMINE 50 mg/ml inj IV ONE (09:35)
[2023-07-05] MEDS ORDERED: metoclopramide 5 mg/ml inj IV ONE (09:35)
[2023-07-05] MEDS ORDERED: normal saline 1000ML IV soln IVB ONE ×2 (09:35)
[2023-07-05] MEDS ORDERED: CefTRIAXone 2gm/D5W 50ml BAG 50 ML IV ONE (10:05)
[2023-07-05 10:39] LABS: PRO BRAIN NATRIURETIC PEPTIDE 4163 PG/ML (0-125)
--- NOTE | 2023-07-05 10:43 | NUR ---
PT RESTING MORE COMFORTABLY AFTER BEING MEDICATED.
[2023-07-05] MEDS ORDERED: diltiazem 5mg/ml 5ml inj. IV ONE (11:05)
[2023-07-05] MEDS ORDERED: potassium Cl 20 mEq SR tablet PO STA (11:06)
[2023-07-05] MEDS ORDERED: enoxaparin 100mg/ml syringe SUBCUT ONE (11:55)
[2023-07-05] MEDS ORDERED: diltiazem 30mg tablet PO ONE (11:55)
--- NOTE | 2023-07-05 13:39 | NUR ---
PT SLEEPING, AWOKE EASILY. PT IN NAD.
[2023-07-05] MEDS ORDERED: glucagon, human recombinant 1mg kit SUBCUT PRN (14:40)
[2023-07-05] MEDS ORDERED: dextrose 50%-water 50ml dispensing syringe IV PRN ×2 (14:40)
[2023-07-05] MEDS ORDERED: acetaminophen 325mg tablet PO PRN (14:40)
[2023-07-05] MEDS ORDERED: PERFLUTREN PROTEIN-A MICROSPHR (Optison) 0.22 MG/ML 3ML VIAL IV ONE (14:40)
[2023-07-05] MEDS ORDERED: potassium Cl 20 mEq SR tablet PO PRN (14:40)
[2023-07-05] MEDS ORDERED: potassium Cl 40MEQ/1/2NS 520ml 520 ML IV PRN (14:40)
[2023-07-05] MEDS ORDERED: HYDROcodone/acetaminophen 5mg/325mg tablet PO PRN (14:40)
[2023-07-05] MEDS ORDERED: mag hydrox/Alum hydrox/simeth 30ml oral suspension PO PRN (14:40)
[2023-07-05] MEDS ORDERED: DEXTROSE 15 GM of carb/4 tabs (each vial/BOTTLE has 4 tablets) PO PRN ×2 (14:40)
[2023-07-05] MEDS: normal saline 1000ml 1,000 ML IV SCH (14:40)
[2023-07-05] MEDS ORDERED: magnesium hydroxide 30ml (MOM) UD suspension PO PRN (14:40)
[2023-07-05] MEDS ORDERED: morphine 2 MG/ML inj. syringe IV PRN ×2 (14:40)
[2023-07-05] MEDS ORDERED: MESSAGE TO PHARMACY PO ONE (14:40)
[2023-07-05] MEDS ORDERED: docusate sod 100mg capsule PO PRN (14:40)
[2023-07-05] MEDS ORDERED: magnesium 4gm in 100ml NS 100 ML IV PRN (14:40)
--- NOTE | 2023-07-05 14:42 | NUR ---
PHARM CONTACTED R/T MED REC. THEY WILL BE DOWN TO DO IT.
[2023-07-05] MEDS ORDERED: POTA-208 PO (15:20)
[2023-07-05] MEDS ORDERED: LISI10TA27 PO (15:20)
[2023-07-05] MEDS ORDERED: LANTUS SQ (15:20)
[2023-07-05] MEDS ORDERED: PROP10TA10 PO (15:20)
[2023-07-05] MEDS ORDERED: INSU100I61 SQ (15:20)
[2023-07-05] MEDS ORDERED: CEPH250C PO (15:20)
[2023-07-05] MEDS: diltiazem-NS 100mg/100ml 100 ML IV SCH (15:43)
--- NOTE | 2023-07-05 16:00 | NUR ---
PT RESTING QUIETLY IN NAD.
[2023-07-05 16:06] LABS: THYROID STIMULATING HORMONE 2.24 ulU/ml (0.34-4.50)
--- NOTE | 2023-07-05 17:17 | NUR ---
PT SLEEPING, AWAKES EASILY. PT IN NAD
[2023-07-05] MEDS ORDERED: heparin 10,000 units/1 ML INJ IV ONE (17:20)
[2023-07-05] MEDS ORDERED: heparin 10,000 units/1 ML INJ IV PRN (17:20)
[2023-07-05] MEDS ORDERED: heparin 25,000 UNIT/250ml bag 250 ML IV PRN (17:20)
--- NOTE | 2023-07-05 17:41 | NUR ---
SPOKE WITH DR GUADARRAMA WHO SAID HE WILL DC THE HEPARIN DRIP.
--- NOTE | 2023-07-05 17:54 | NUR ---
Patient in room ED 6. I have received report from Willam ED RN and had the opportunity to ask questions and assume patient care.
--- NOTE | 2023-07-05 17:56 | NUR ---
PT FSBS IS 306mg/dl. PT'S FOOD TRAY ISN'T HERE. ADVISED PAPER COLORER.
--- NOTE | 2023-07-05 18:15 | NUR ---
Patient in room PCU 3021. I have received report from Duarte (RN) and had the opportunity to ask questions and assume patient care.
--- NOTE | 2023-07-05 18:19 | NUR ---
Problems reprioritized. Patient report given, questions answered & plan of care reviewed with Harinder SUBRAMANIAN.
--- NOTE | 2023-07-05 18:49 | NUR ---
Pt arrived from ER via gurney. Able to ambulate to hospital bed. Pt awake and alert, oriented X4.
[2023-07-05] MEDS: enoxaparin 100mg/ml syringe SUBCUT SCH (20:45)
[2023-07-05] MEDS: insulin glargine (Lantus) pen - multi-dose SQ SCH (21:31)
[2023-07-05] MEDS: insulin Lispro (HumaLOG) vial - multi-dose SQ SCH (21:33)
[2023-07-06] VITALS (15 sets, daily range): BP systolic 104–147; BP diastolic 28–88; PULSE 99–149; RESP 12–20; TEMP 97.6–98.5; O2SAT 96–98
[2023-07-06] MEDS: normal saline 1000ml 1,000 ML IV SCH ×3 (00:40→20:40)
[2023-07-06] MEDS: diltiazem-NS 100mg/100ml 100 ML IV SCH ×2 (04:16→14:35)
--- NOTE | 2023-07-06 06:14 | NUR ---
Problems reprioritized. Patient report given, questions answered & plan of care reviewed with Juan Jose (MARILYNN).
[2023-07-06 07:53] LABS: BASOPHILS % (AUTO) 0.6 % (0-1); EOSINOPHILS # (AUTO) 0.4 X10'3 (0-0.9); EOSINOPHILS % (AUTO) 5.8 % (0-6); HEMATOCRIT 30.9 % (35.0-45.0); LYMPHOCYTES # (AUTO) 1.9 X10'3 (1.1-4.8); LYMPHOCYTES % (AUTO) 27.1 % (21-51); MEAN CORPUSCULAR HEMOGLOBIN 26.9 PG (27.0-31.0); MEAN CORPUSCULAR HGB CONC 32.5 g/dL (33.0-36.5); MEAN CORPUSCULAR VOLUME 82.9 FL (78-98); MEAN PLATELET VOLUME 9.1 FL (7.4-10.4); MONOCYTES # (AUTO) 0.9 X10'3 (0-0.9); MONOCYTES % (AUTO) 12.6 % (2-12); NEUTROPHILS # (AUTO) 3.8 X10'3 (1.8-7.7); NEUTROPHILS % (AUTO) 53.9 % (42-75); PLATELET COUNT 344 X10'3 (140-440); RED BLOOD COUNT 3.73 X10'6 (4.20-5.60); RED CELL DISTRIBUTION WIDTH 15.6 % (11.5-14.5); WHITE BLOOD COUNT 7.1 X10'3 (4.5-11.0)
[2023-07-06] MEDS: CefTRIAXone/D5W-Rocephin 1gm 50 ML IV SCH (08:00)
[2023-07-06] MEDS: enoxaparin 100mg/ml syringe SUBCUT SCH (08:00)
[2023-07-06 08:13] LABS: ALANINE AMINOTRANSFERASE 11 U/L (12-78); ALBUMIN 1.9 G/DL (3.4-5.0); ALBUMIN/GLOBULIN RATIO 0.5 (1.1-1.5); ALKALINE PHOSPHATASE 117 IU/L (46-116); ANION GAP 10 (8-16); ASPARTATE AMINO TRANSFERASE 18 U/L (10-37); BILIRUBIN,TOTAL 0.4 MG/DL (0.1-1.0); BLOOD UREA NITROGEN 8 MG/DL (7-18); BUN/CREATININE RATIO 13.6 (10.0-20.0); CALCIUM 8.6 MG/DL (8.5-10.1); CHLORIDE 98 MMOL/L (99-107); CREATININE 0.59 MG/DL (0.40-0.90); GLUCOSE 323 MG/DL (70-104); MAGNESIUM 1.4 MG/DL (1.5-2.4); PHOSPHORUS 2.4 MG/DL (2.3-4.5); POTASSIUM 3.2 MMOL/L (3.5-5.1); SODIUM 131 MMOL/L (135-145); TOTAL PROTEIN 5.9 G/DL (6.4-8.2); eCRCL 112 ML/MIN; eGFR > 90 ML/MIN
--- NOTE | 2023-07-06 10:08 | NUR ---
Malnutrition consult: Pt reports 2-13 lb wt loss with decreased appetite/PO intake per malnutrition risk screen with RN. Pt reports N/V and abdominal pain over the past week resulting in decreased PO intake per physician notes. Pt with scaled wt h/o 102.5 kg / and 109.5 kg 06/17. Current documented wt is 99 kg though not scaled, fortunately pt with a scaled weight taken in ED just one day [employer] and pt 111.36 kg. It appears pt with wt gain rather than wt loss, though likely pt did experience some changes in PO intake [employer] secondary to reported GI symptoms. Pt currently on a CHO controlled diet and eating well, documented with 100% PO intake. Pt with no documented decrease in muscle strength and with bilateral leg 2+ mild edema. Pt currently lacks a minimum of two criteria for malnutrition though will continue to monitor s/s of malnutrition during admit. Per EMR pt with insulin dependent T2DM, most recent A1c >12.0% 06/17. Pt seen by RD 06/18 at previous admit for DM education with RD contact information provided. No further education planned at this time though will remain available. Addendum: 07/06/23 at [address] Amended: Links added.
[2023-07-06] MEDS: insulin Lispro (HumaLOG) vial - multi-dose SQ SCH ×4 (10:12→22:03)
[2023-07-06] MEDS ORDERED: diphenhydrAMINE 50 mg/ml inj IV PRN (11:30)
[2023-07-06] MEDS: diltiazem CD 120mg capsule (once-daily) PO SCH (16:45)
--- NOTE | 2023-07-06 18:19 | NUR ---
Patient in room PCU 3021. I have received report from Juan Jose (MARILYNN) and had the opportunity to ask questions and assume patient care.
[2023-07-06] MEDS ORDERED: diltiazem-NS 100mg/100ml 100 ML IV SCH (18:25)
--- NOTE | 2023-07-06 18:25 | NUR ---
Heart rate sustaining 150's after IV Cardizem discontinued. Had already given PO dose. Instructed by Dr Chacko to re-initiate drip at this time.
--- NOTE | 2023-07-06 20:06 | NUR ---
cardizem drip reinstituted at this time. Same dose, 10mg/hr.
[2023-07-06] MEDS: magnesium Cl slow-release 64mg tablet PO PRN (20:09)
[2023-07-06] MEDS: apixaban 5mg tablet PO SCH (20:10)
[2023-07-06] MEDS: potassium Cl 20 mEq SR tablet PO PRN (20:10)
[2023-07-06] MEDS: insulin glargine (Lantus) pen - multi-dose SQ SCH (22:01)
[2023-07-06] MEDS: ondansetron/PF 4mg/2ml inj IV PRN (23:58)
[2023-07-07] VITALS (12 sets, daily range): BP systolic 98–155; BP diastolic 49–81; PULSE 77–120; RESP 14–37; TEMP 97.4–98.6; O2SAT 96–98
[2023-07-07] MEDS: diltiazem-NS 100mg/100ml 100 ML IV SCH (03:37)
[2023-07-07 06:24] LABS: BASOPHILS # (AUTO) 0.1 X10'3 (0-0.2); EOSINOPHILS # (AUTO) 0.6 X10'3 (0-0.9); EOSINOPHILS % (AUTO) 7.5 % (0-6); HEMATOCRIT 30.4 % (35.0-45.0); HEMOGLOBIN 9.8 g/dl (12.0-16.0); LYMPHOCYTES # (AUTO) 2.5 X10'3 (1.1-4.8); LYMPHOCYTES % (AUTO) 33.5 % (21-51); MEAN CORPUSCULAR HEMOGLOBIN 26.9 PG (27.0-31.0); MEAN CORPUSCULAR HGB CONC 32.4 g/dL (33.0-36.5); MEAN CORPUSCULAR VOLUME 82.9 FL (78-98); MEAN PLATELET VOLUME 8.4 FL (7.4-10.4); MONOCYTES # (AUTO) 1.1 X10'3 (0-0.9); MONOCYTES % (AUTO) 14.1 % (2-12); NEUTROPHILS # (AUTO) 3.3 X10'3 (1.8-7.7); NEUTROPHILS % (AUTO) 43.9 % (42-75); PLATELET COUNT 313 X10'3 (140-440); RED BLOOD COUNT 3.67 X10'6 (4.20-5.60); RED CELL DISTRIBUTION WIDTH 15.6 % (11.5-14.5); WHITE BLOOD COUNT 7.5 X10'3 (4.5-11.0)
--- NOTE | 2023-07-07 06:31 | NUR ---
Problems reprioritized. Patient report given, questions answered & plan of care reviewed with Tim (RN).
--- NOTE | 2023-07-07 06:35 | NUR ---
Patient in room PCU 3021. I have received report from Harinder and had the opportunity to ask questions and assume patient care. Addendum: 07/07/23 at 0635 by Tim Black RN Amended: Links added.
[2023-07-07 06:39] LABS: ALANINE AMINOTRANSFERASE 10 U/L (12-78); ALBUMIN 1.8 G/DL (3.4-5.0); ALBUMIN/GLOBULIN RATIO 0.5 (1.1-1.5); ALKALINE PHOSPHATASE 103 IU/L (46-116); ANION GAP 8 (8-16); ASPARTATE AMINO TRANSFERASE 13 U/L (10-37); BILIRUBIN,TOTAL 0.3 MG/DL (0.1-1.0); BLOOD UREA NITROGEN 8 MG/DL (7-18); BUN/CREATININE RATIO 14.8 (10.0-20.0); CALCIUM 8.8 MG/DL (8.5-10.1); CHLORIDE 103 MMOL/L (99-107); CREATININE 0.54 MG/DL (0.40-0.90); GLUCOSE 237 MG/DL (70-104); MAGNESIUM 1.4 MG/DL (1.5-2.4); PHOSPHORUS 3.3 MG/DL (2.3-4.5); POTASSIUM 3.4 MMOL/L (3.5-5.1); SODIUM 135 MMOL/L (135-145); TOTAL CARBON DIOXIDE 23.6 MMOL/L (24-32); TOTAL PROTEIN 5.8 G/DL (6.4-8.2); eCRCL 123 ML/MIN; eGFR > 90 ML/MIN
[2023-07-07] MEDS: normal saline 1000ml 1,000 ML IV SCH ×2 (06:40→16:45)
[2023-07-07] MEDS: apixaban 5mg tablet PO SCH ×2 (07:48→19:42)
[2023-07-07] MEDS: diltiazem CD 120mg capsule (once-daily) PO SCH (07:48)
[2023-07-07] MEDS: CefTRIAXone/D5W-Rocephin 1gm 50 ML IV SCH (07:49)
[2023-07-07] MEDS: potassium Cl 20 mEq SR tablet PO PRN ×3 (08:38→18:00)
[2023-07-07] MEDS: magnesium Cl slow-release 64mg tablet PO PRN ×2 (08:38→21:33)
[2023-07-07] MEDS: insulin Lispro (HumaLOG) vial - multi-dose SQ SCH ×2 (14:21→19:40)
--- NOTE | 2023-07-07 18:40 | NUR ---
Problems reprioritized. Patient report given, questions answered & plan of care reviewed with Mary Alice Addendum: 07/07/23 at 1840 by Tim Black RN Amended: Links added.
[2023-07-07] MEDS: insulin glargine (Lantus) pen - multi-dose SQ SCH (21:40)
[2023-07-08] VITALS (7 sets, daily range): BP systolic 102–138; BP diastolic 60–82; PULSE 107–145; RESP 9–23; TEMP 98.4–98.7; O2SAT 97–98
[2023-07-08] MEDS: normal saline 1000ml 1,000 ML IV SCH (02:40)
[2023-07-08 06:07] LABS: BASOPHILS % (AUTO) 0.6 % (0-1); EOSINOPHILS # (AUTO) 0.4 X10'3 (0-0.9); EOSINOPHILS % (AUTO) 7.1 % (0-6); HEMATOCRIT 29.9 % (35.0-45.0); HEMOGLOBIN 9.9 g/dl (12.0-16.0); LYMPHOCYTES # (AUTO) 2.4 X10'3 (1.1-4.8); LYMPHOCYTES % (AUTO) 38.1 % (21-51); MEAN CORPUSCULAR HEMOGLOBIN 27.2 PG (27.0-31.0); MEAN CORPUSCULAR HGB CONC 33.1 g/dL (33.0-36.5); MEAN CORPUSCULAR VOLUME 82.2 FL (78-98); MEAN PLATELET VOLUME 8.5 FL (7.4-10.4); MONOCYTES # (AUTO) 0.8 X10'3 (0-0.9); MONOCYTES % (AUTO) 12.8 % (2-12); NEUTROPHILS # (AUTO) 2.6 X10'3 (1.8-7.7); NEUTROPHILS % (AUTO) 41.4 % (42-75); PLATELET COUNT 290 X10'3 (140-440); RED BLOOD COUNT 3.64 X10'6 (4.20-5.60); RED CELL DISTRIBUTION WIDTH 15.8 % (11.5-14.5); WHITE BLOOD COUNT 6.3 X10'3 (4.5-11.0)
--- NOTE | 2023-07-08 06:17 | NUR ---
Patient in room U 3021. I have received report from Mary Alice and had the opportunity to ask questions and assume patient care. Addendum: 07/08/23 at 0617 by Tim Black RN Amended: Links added.
--- NOTE | 2023-07-08 06:31 | NUR ---
Problems reprioritized. Patient report given, questions answered & plan of care reviewed with Tim
[2023-07-08 06:49] LABS: ALANINE AMINOTRANSFERASE 10 U/L (12-78); ALBUMIN 1.9 G/DL (3.4-5.0); ALBUMIN/GLOBULIN RATIO 0.5 (1.1-1.5); ALKALINE PHOSPHATASE 99 IU/L (46-116); ANION GAP 9 (8-16); ASPARTATE AMINO TRANSFERASE 14 U/L (10-37); BILIRUBIN,TOTAL 0.2 MG/DL (0.1-1.0); BLOOD UREA NITROGEN 10 MG/DL (7-18); BUN/CREATININE RATIO 18.9 (10.0-20.0); CHLORIDE 102 MMOL/L (99-107); CREATININE 0.53 MG/DL (0.40-0.90); GLUCOSE 274 MG/DL (70-104); MAGNESIUM 1.5 MG/DL (1.5-2.4); PHOSPHORUS 3.5 MG/DL (2.3-4.5); POTASSIUM 3.7 MMOL/L (3.5-5.1); SODIUM 134 MMOL/L (135-145); TOTAL CARBON DIOXIDE 22.9 MMOL/L (24-32); TOTAL PROTEIN 5.9 G/DL (6.4-8.2); eCRCL 125 ML/MIN; eGFR > 90 ML/MIN
[2023-07-08] MEDS: ondansetron/PF 4mg/2ml inj IV PRN (07:11)
[2023-07-08] MEDS: CefTRIAXone/D5W-Rocephin 1gm 50 ML IV SCH (07:11)
[2023-07-08] MEDS: apixaban 5mg tablet PO SCH (07:11)
[2023-07-08] MEDS: diltiazem CD 120mg capsule (once-daily) PO SCH (07:11)
[2023-07-08] MEDS: insulin Lispro (HumaLOG) vial - multi-dose SQ SCH ×2 (08:42→13:26)
--- NOTE | 2023-07-08 09:07 | NUR ---
Page Sent promotional table spacer PAGER ID: [phone] MESSAGE: Brian Jackson-heart rate staying 145 consistantly, over an hour from po cartizem
[2023-07-08] MEDS ORDERED: diltiazem 5mg/ml 5ml inj. IV ONE ×2 (09:20→10:40)
[2023-07-08] MEDS ORDERED: CARCD120C PO (14:49)
[2023-07-08] MEDS ORDERED: APIX5TAB3 PO (14:49)
[2023-07-08] MEDS ORDERED: SULF1TAB49 PO (14:51)
--- NOTE | 2023-07-08 15:34 | NUR ---
tele, iv removed, dc paperwork reviewed, questions answered
== END 2023-07-08 15:21 | disposition home or self-care (01) | DRG 690 ==
LOC: ER 06:46 → ED HOLD 14:49 → PCU 3S 18:37
PROVIDERS: ADMIT Family Medicine; ATTEND Family Medicine
PROC: CD2 Nuclear Medicine, Gastrointestinal System, Tomographic (Tomo) Nuclear Medicine Imaging (ICD-10-PCS; principal; 2023-07-07)
DX: N39.0 Urinary tract infection, site not specified (principal); I48.92 Unspecified atrial flutter; N17.9 Acute kidney failure, unspecified; E87.1 Hypo-osmolality and hyponatremia; I10 Essential (primary) hypertension; E11.9 Type 2 diabetes mellitus without complications; G89.29 Other chronic pain; D75.839 Thrombocytosis, unspecified; M54.50 Low back pain, unspecified; I48.91 Unspecified atrial fibrillation; E86.0 Dehydration; D64.9 Anemia, unspecified; Z85.43 Personal history of malignant neoplasm of ovary; Z79.4 Long term (current) use of insulin; Z79.899 Other long term (current) drug therapy; Z88.5 Allergy status to narcotic agent; Z88.0 Allergy status to penicillin; Z91.09 Other allergy status, other than to drugs and biological substances; Z90.710 Acquired absence of both cervix and uterus; Z85.42 Personal history of malignant neoplasm of other parts of uterus; Z90.49 Acquired absence of other specified parts of digestive tract
CPT/HCPCS: 36415; 71045; 78264; 80053; 81001; 81025; 82948; 83690; 83735; 83880; 84100; 84145; 84443; 84484; 85025; 87081; 93306; 96365; 96372; 96375; 99285; A4314; A6258; A9541; G0378; J0696; J1200; J1650; J1815; J2405; J2765; J3490; J7030

== ENCOUNTER 2023-08-19 09:16 | Inpatient (IN) | payer SELFPAY ==
[~2023-08-19] VITALS: Ht 170.2 cm; Wt 112.1 kg
[~2023-08-19 09:16] MED LIST changes: +APIX5TAB3 PO; +CARCD120C PO; +CARV-49 PO; -INSU100I75 SQ; +LANTUS SQ; -LISI10TA27 PO; -ONDA4TAB12 PO; -POTA-207 PO; -PROC-8 PO; -PROP10TA10 PO
[2023-08-19 10:58] LABS: BILIRUBIN,URINE SMALL (Neg); CLARITY,URINE CLOUDY (Clear); COLOR,URINE YELLOW (Yellow); GLUCOSE, URINE 500 mg/dl (Neg); KETONES,URINE >=80 mg/dl (Neg); LEUKOCYTE ESTERASE ,URINE TRACE (Neg); NITRITES, URINE NEGATIVE (Neg); OCCULT BLOOD,URINE SMALL (Neg); PH,URINE 5.5 (4.8-8.0); PROTEIN,URINE 100 mg/dl (Neg); UROBILINOGEN,URINE 0.2 E.U/dL (0.2-1.0)
[2023-08-19 10:59] LABS: BASOPHILS % (AUTO) 0.4 % (0-1); EOSINOPHILS # (AUTO) 0.2 X10'3 (0-0.9); EOSINOPHILS % (AUTO) 1.9 % (0-6); HEMOGLOBIN 11.6 g/dl (12.0-16.0); LYMPHOCYTES # (AUTO) 1.7 X10'3 (1.1-4.8); LYMPHOCYTES % (AUTO) 20.9 % (21-51); MEAN CORPUSCULAR HEMOGLOBIN 25.4 PG (27.0-31.0); MEAN CORPUSCULAR HGB CONC 31.3 g/dL (33.0-36.5); MEAN CORPUSCULAR VOLUME 81.3 FL (78-98); MEAN PLATELET VOLUME 8.9 FL (7.4-10.4); MONOCYTES # (AUTO) 0.9 X10'3 (0-0.9); MONOCYTES % (AUTO) 10.4 % (2-12); NEUTROPHILS # (AUTO) 5.4 X10'3 (1.8-7.7); NEUTROPHILS % (AUTO) 66.4 % (42-75); PLATELET COUNT 213 X10'3 (140-440); RED BLOOD COUNT 4.55 X10'6 (4.20-5.60); RED CELL DISTRIBUTION WIDTH 17.6 % (11.5-14.5); WHITE BLOOD COUNT 8.2 X10'3 (4.5-11.0)
[2023-08-19 11:05] LABS: MUCUS STRANDS FEW /LPF (Neg); SQUAMOUS EPITHELIAL CELL,UR MANY /LPF (FEW); UA COLLECTION TYPE CLN CATCH MIDSTREAM
[2023-08-19 11:07] LABS: TRICHOMONAS,URINE FEW /HPF (NEGATIVE); YEAST MODERATE /HPF (NEGATIVE)
[2023-08-19 11:08] LABS: BACTERIA,URINE 2+ /HPF (Neg); WBC,URINE TNTC /HPF (0-4)
[2023-08-19 11:09] LABS: TRANSITIONAL EPI CELLS,URINE FEW /HPF
[2023-08-19 11:22] LABS: ALANINE AMINOTRANSFERASE 10 U/L (12-78); ALBUMIN 2.8 G/DL (3.4-5.0); ALBUMIN/GLOBULIN RATIO 0.7 (1.1-1.5); ALKALINE PHOSPHATASE 119 IU/L (46-116); ANION GAP 8 (8-16); ASPARTATE AMINO TRANSFERASE 17 U/L (10-37); BILIRUBIN,TOTAL 0.6 MG/DL (0.1-1.0); BLOOD UREA NITROGEN 14 MG/DL (7-18); BUN/CREATININE RATIO 20.6 (10.0-20.0); CALCIUM 9.2 MG/DL (8.5-10.1); CHLORIDE 101 MMOL/L (99-107); CREATININE 0.68 MG/DL (0.40-0.90); GLUCOSE 317 MG/DL (70-104); POTASSIUM 3.7 MMOL/L (3.5-5.1); SODIUM 133 MMOL/L (135-145); TOTAL CARBON DIOXIDE 24.3 MMOL/L (24-32); TOTAL PROTEIN 7.1 G/DL (6.4-8.2); eCRCL 97 ML/MIN; eGFR > 90 ML/MIN
[2023-08-19 11:25] LABS: PRO BRAIN NATRIURETIC PEPTIDE 943 PG/ML (0-125)
[2023-08-19] MEDS ORDERED: CLINDAMYCIN 600mg IN NS 50ML 50 ML IV ONE (14:50)
[2023-08-19] MEDS ORDERED: clindamycin 600mg/D5W 50ml 50 ML IV ONE (14:50)
[2023-08-19] MEDS ORDERED: DEXTROSE 15 GM of carb/4 tabs (each vial/BOTTLE has 4 tablets) PO PRN ×2 (15:30)
[2023-08-19] MEDS ORDERED: PERFLUTREN PROTEIN-A MICROSPHR (Optison) 0.22 MG/ML 3ML VIAL IV ONE (15:30)
[2023-08-19] MEDS ORDERED: magnesium hydroxide 30ml (MOM) UD suspension PO PRN (15:30)
[2023-08-19] MEDS ORDERED: magnesium 4gm in 100ml NS 100 ML IV PRN (15:30)
[2023-08-19] MEDS ORDERED: MESSAGE TO PHARMACY PO ONE (15:30)
[2023-08-19] MEDS ORDERED: glucagon, human recombinant 1mg kit SUBCUT PRN (15:30)
[2023-08-19] MEDS ORDERED: ondansetron/PF 4mg/2ml inj IV PRN (15:30)
[2023-08-19] MEDS ORDERED: magnesium Cl slow-release 64mg tablet PO PRN (15:30)
[2023-08-19] MEDS ORDERED: docusate sod 100mg capsule PO PRN (15:30)
[2023-08-19] MEDS ORDERED: mag hydrox/Alum hydrox/simeth 30ml oral suspension PO PRN (15:30)
[2023-08-19] MEDS ORDERED: dextrose 50%-water 50ml dispensing syringe IV PRN ×2 (15:30)
[2023-08-19] MEDS ORDERED: acetaminophen 325mg tablet PO PRN (15:30)
[2023-08-19] MEDS ORDERED: potassium Cl 40MEQ/1/2NS 520ml 520 ML IV PRN (15:30)
[2023-08-19] MEDS ORDERED: potassium Cl 20 mEq SR tablet PO PRN (15:30)
[2023-08-19] MEDS: HYDROcodone/acetaminophen 5mg/325mg tablet PO PRN (16:09)
[2023-08-19 17:31] VITALS: RESP 18; O2SAT 97
[2023-08-19 17:40] VITALS: BP 143/66; PULSE 121; RESP 18; TEMP 98.2; O2SAT 97
[2023-08-19 18:00] VITALS: BP 143/66; PULSE 116; RESP 12; TEMP 98.2; O2SAT 93
[2023-08-19] MEDS: ceFAZolin/D5W- 1GM premix 50 ML IV SCH (18:09)
[2023-08-19] MEDS: apixaban 2.5mg tablet PO SCH (21:08)
[2023-08-19 21:09] VITALS: BP 146/100; PULSE 126; RESP 16; O2SAT 96
[2023-08-19] MEDS: carvedilol 6.25mg tablet PO SCH (21:09)
[2023-08-19 22:00] VITALS: BP 141/89; PULSE 122; RESP 20; TEMP 98.1; O2SAT 96
[2023-08-19] MEDS: insulin glargine (Lantus) pen - multi-dose SQ SCH (22:06)
[2023-08-19] MEDS: insulin Lispro (HumaLOG) vial - multi-dose SQ SCH (22:07)
[2023-08-19] MEDS: diphenhydrAMINE 25mg capsule PO PRN (22:17)
[2023-08-20] VITALS (9 sets, daily range): BP systolic 103–158; BP diastolic 63–111; PULSE 83–128; RESP 13–24; TEMP 97.9–100.1; O2SAT 91–100
[2023-08-20] MEDS: ceFAZolin/D5W- 1GM premix 50 ML IV SCH ×4 (00:09→16:29)
[2023-08-20 08:09] LABS: BASOPHILS % (AUTO) 0.4 % (0-1); EOSINOPHILS # (AUTO) 0.2 X10'3 (0-0.9); EOSINOPHILS % (AUTO) 2.8 % (0-6); HEMATOCRIT 34.9 % (35.0-45.0); HEMOGLOBIN 11.2 g/dl (12.0-16.0); LYMPHOCYTES # (AUTO) 1.3 X10'3 (1.1-4.8); LYMPHOCYTES % (AUTO) 18.5 % (21-51); MEAN CORPUSCULAR HEMOGLOBIN 25.7 PG (27.0-31.0); MEAN CORPUSCULAR HGB CONC 32.1 g/dL (33.0-36.5); MEAN PLATELET VOLUME 8.8 FL (7.4-10.4); MONOCYTES # (AUTO) 0.8 X10'3 (0-0.9); MONOCYTES % (AUTO) 11.1 % (2-12); NEUTROPHILS # (AUTO) 4.7 X10'3 (1.8-7.7); NEUTROPHILS % (AUTO) 67.2 % (42-75); PLATELET COUNT 191 X10'3 (140-440); RED BLOOD COUNT 4.36 X10'6 (4.20-5.60)
[2023-08-20 08:21] LABS: HEMOGLOBIN A1C 10.7 % (4.5-6.2)
[2023-08-20 08:48] LABS: ALANINE AMINOTRANSFERASE 8 U/L (12-78); ALBUMIN 2.4 G/DL (3.4-5.0); ALBUMIN/GLOBULIN RATIO 0.6 (1.1-1.5); ALKALINE PHOSPHATASE 106 IU/L (46-116); ANION GAP 8 (8-16); ASPARTATE AMINO TRANSFERASE 15 U/L (10-37); BILIRUBIN,TOTAL 0.4 MG/DL (0.1-1.0); BLOOD UREA NITROGEN 13 MG/DL (7-18); C-REACTIVE PROTEIN 3.27 MG/DL (0.0-0.5); CHLORIDE 103 MMOL/L (99-107); CREATININE 0.59 MG/DL (0.40-0.90); GLUCOSE 246 MG/DL (70-104); MAGNESIUM 1.5 MG/DL (1.5-2.4); PHOSPHORUS 3.3 MG/DL (2.3-4.5); POTASSIUM 3.4 MMOL/L (3.5-5.1); SODIUM 136 MMOL/L (135-145); TOTAL PROTEIN 6.5 G/DL (6.4-8.2); eCRCL 112 ML/MIN; eGFR > 90 ML/MIN
[2023-08-20] MEDS: HYDROcodone/acetaminophen 5mg/325mg tablet PO PRN (09:01)
[2023-08-20] MEDS: diphenhydrAMINE 25mg capsule PO PRN (09:01)
[2023-08-20] MEDS: apixaban 2.5mg tablet PO SCH ×2 (09:02→19:28)
[2023-08-20] MEDS: insulin Lispro (HumaLOG) vial - multi-dose SQ SCH ×3 (09:12→19:37)
[2023-08-20] MEDS: potassium Cl 20 mEq SR tablet PO PRN ×3 (09:13→22:17)
[2023-08-20] MEDS: carvedilol 6.25mg tablet PO SCH ×2 (09:16→19:28)
[2023-08-20] MEDS: diltiazem CD 120mg capsule (once-daily) PO SCH (09:17)
[2023-08-20] MEDS: furosemide 40mg/4ml inj IV SCH (09:17)
[2023-08-20] MEDS ORDERED: diltiazem 5mg/ml 5ml inj. IV ONE (11:05)
[2023-08-20] MEDS: LORazepam 1 MG tablet PO PRN (19:28)
[2023-08-20] MEDS: insulin glargine (Lantus) pen - multi-dose SQ SCH (22:14)
[2023-08-21] VITALS (7 sets, daily range): BP systolic 105–138; BP diastolic 55–96; PULSE 85–111; RESP 15–25; TEMP 97.7–99.5; O2SAT 95–100
[2023-08-21] MEDS: ceFAZolin/D5W- 1GM premix 50 ML IV SCH ×4 (00:33→23:24)
[2023-08-21] MEDS: diltiazem CD 120mg capsule (once-daily) PO SCH (08:02)
[2023-08-21] MEDS: apixaban 2.5mg tablet PO SCH ×2 (08:02→19:03)
[2023-08-21] MEDS: carvedilol 6.25mg tablet PO SCH ×2 (08:02→19:03)
[2023-08-21] MEDS: furosemide 40mg/4ml inj IV SCH (08:02)
[2023-08-21 08:14] LABS: BASOPHILS % (AUTO) 0.4 % (0-1); EOSINOPHILS # (AUTO) 0.3 X10'3 (0-0.9); EOSINOPHILS % (AUTO) 3.1 % (0-6); HEMATOCRIT 34.3 % (35.0-45.0); HEMOGLOBIN 10.9 g/dl (12.0-16.0); LYMPHOCYTES % (AUTO) 24.8 % (21-51); MEAN CORPUSCULAR HEMOGLOBIN 25.3 PG (27.0-31.0); MEAN CORPUSCULAR HGB CONC 31.8 g/dL (33.0-36.5); MEAN CORPUSCULAR VOLUME 79.4 FL (78-98); MEAN PLATELET VOLUME 8.7 FL (7.4-10.4); MONOCYTES # (AUTO) 0.9 X10'3 (0-0.9); MONOCYTES % (AUTO) 11.1 % (2-12); NEUTROPHILS # (AUTO) 4.9 X10'3 (1.8-7.7); NEUTROPHILS % (AUTO) 60.6 % (42-75); PLATELET COUNT 194 X10'3 (140-440); RED BLOOD COUNT 4.32 X10'6 (4.20-5.60)
[2023-08-21 08:34] LABS: ALANINE AMINOTRANSFERASE 10 U/L (12-78); ALBUMIN 2.4 G/DL (3.4-5.0); ALBUMIN/GLOBULIN RATIO 0.6 (1.1-1.5); ALKALINE PHOSPHATASE 107 IU/L (46-116); ANION GAP 7 (8-16); ASPARTATE AMINO TRANSFERASE 16 U/L (10-37); BILIRUBIN,TOTAL 0.4 MG/DL (0.1-1.0); BLOOD UREA NITROGEN 17 MG/DL (7-18); BUN/CREATININE RATIO 26.2 (10.0-20.0); CALCIUM 9.1 MG/DL (8.5-10.1); CHLORIDE 103 MMOL/L (99-107); CREATININE 0.65 MG/DL (0.40-0.90); GLUCOSE 188 MG/DL (70-104); MAGNESIUM 1.4 MG/DL (1.5-2.4); PHOSPHORUS 4.1 MG/DL (2.3-4.5); POTASSIUM 3.6 MMOL/L (3.5-5.1); SODIUM 134 MMOL/L (135-145); TOTAL CARBON DIOXIDE 23.9 MMOL/L (24-32); TOTAL PROTEIN 6.2 G/DL (6.4-8.2); eCRCL 102 ML/MIN; eGFR > 90 ML/MIN
[2023-08-21] MEDS: insulin Lispro (HumaLOG) vial - multi-dose SQ SCH ×3 (09:49→18:53)
[2023-08-21] MEDS: diphenhydrAMINE 25mg capsule PO PRN ×2 (10:49→21:15)
[2023-08-21] MEDS: LORazepam 1 MG tablet PO PRN ×2 (12:31→19:03)
[2023-08-21] MEDS: insulin glargine (Lantus) pen - multi-dose SQ SCH (20:43)
[2023-08-22] VITALS (10 sets, daily range): BP systolic 111–138; BP diastolic 47–87; PULSE 80–126; RESP 14–28; TEMP 97.5–98.9; O2SAT 94–100
[2023-08-22] MEDS: ceFAZolin/D5W- 1GM premix 50 ML IV SCH ×2 (07:22→16:36)
[2023-08-22] MEDS: diphenhydrAMINE 25mg capsule PO PRN ×2 (07:31→19:35)
[2023-08-22] MEDS: apixaban 2.5mg tablet PO SCH ×2 (07:31→19:36)
[2023-08-22] MEDS: furosemide 40mg/4ml inj IV SCH ×2 (07:32→21:14)
[2023-08-22] MEDS: diltiazem CD 120mg capsule (once-daily) PO SCH (07:32)
[2023-08-22] MEDS: carvedilol 6.25mg tablet PO SCH ×2 (07:32→19:35)
[2023-08-22] MEDS: insulin Lispro (HumaLOG) vial - multi-dose SQ SCH ×3 (09:04→19:24)
[2023-08-22] MEDS: sacubitril/valsartan 24mg-26mg tablet PO SCH ×2 (09:06→19:36)
[2023-08-22] MEDS: EMPAGLIFLOZIN 10 MG TABLET PO SCH (09:06)
[2023-08-22] MEDS: spironolactone 25 MG tablet PO SCH (09:07)
[2023-08-22 09:31] LABS: BASOPHILS % (AUTO) 0.5 % (0-1); EOSINOPHILS # (AUTO) 0.2 X10'3 (0-0.9); EOSINOPHILS % (AUTO) 2.5 % (0-6); HEMOGLOBIN 11.5 g/dl (12.0-16.0); LYMPHOCYTES # (AUTO) 1.7 X10'3 (1.1-4.8); LYMPHOCYTES % (AUTO) 20.6 % (21-51); MEAN CORPUSCULAR HEMOGLOBIN 25.2 PG (27.0-31.0); MEAN CORPUSCULAR HGB CONC 31.9 g/dL (33.0-36.5); MEAN PLATELET VOLUME 9.5 FL (7.4-10.4); MONOCYTES # (AUTO) 1.1 X10'3 (0-0.9); MONOCYTES % (AUTO) 12.5 % (2-12); NEUTROPHILS # (AUTO) 5.4 X10'3 (1.8-7.7); NEUTROPHILS % (AUTO) 63.9 % (42-75); PLATELET COUNT 217 X10'3 (140-440); RED BLOOD COUNT 4.55 X10'6 (4.20-5.60); RED CELL DISTRIBUTION WIDTH 17.1 % (11.5-14.5); WHITE BLOOD COUNT 8.4 X10'3 (4.5-11.0)
[2023-08-22 09:55] LABS: ALANINE AMINOTRANSFERASE 7 U/L (12-78); ALBUMIN 2.6 G/DL (3.4-5.0); ALBUMIN/GLOBULIN RATIO 0.6 (1.1-1.5); ALKALINE PHOSPHATASE 102 IU/L (46-116); ANION GAP 10 (8-16); ASPARTATE AMINO TRANSFERASE 16 U/L (10-37); BILIRUBIN,TOTAL 0.4 MG/DL (0.1-1.0); BLOOD UREA NITROGEN 16 MG/DL (7-18); BUN/CREATININE RATIO 25.4 (10.0-20.0); CALCIUM 9.2 MG/DL (8.5-10.1); CHLORIDE 100 MMOL/L (99-107); CREATININE 0.63 MG/DL (0.40-0.90); GLUCOSE 224 MG/DL (70-104); MAGNESIUM 1.4 MG/DL (1.5-2.4); PHOSPHORUS 3.9 MG/DL (2.3-4.5); POTASSIUM 3.5 MMOL/L (3.5-5.1); SODIUM 133 MMOL/L (135-145); TOTAL CARBON DIOXIDE 22.9 MMOL/L (24-32); TOTAL PROTEIN 6.8 G/DL (6.4-8.2); eCRCL 105 ML/MIN; eGFR > 90 ML/MIN
[2023-08-22] MEDS: LORazepam 1 MG tablet PO PRN (13:01)
[2023-08-22] MEDS ORDERED: magnesium 4gm in 100ml NS 100 ML IV PRN (14:50)
[2023-08-22] MEDS ORDERED: magnesium 2GM in 50ml NS 50 ML IV PRN (14:50)
[2023-08-22] MEDS ORDERED: potassium Cl 20 mEq SR tablet PO PRN (14:50)
[2023-08-22] MEDS ORDERED: magnesium Cl slow-release 64mg tablet PO PRN (14:50)
[2023-08-22] MEDS ORDERED: potassium Cl 40MEQ/1/2NS 520ml 520 ML IV PRN (14:50)
[2023-08-22] MEDS: carVEDilol 12.5mg tablet PO SCH (20:00)
[2023-08-22] MEDS ORDERED: carVEDilol 12.5mg tablet PO ONE (20:30)
[2023-08-22] MEDS: insulin glargine (Lantus) pen - multi-dose SQ SCH (21:37)
[2023-08-22] MEDS: HYDROcodone/acetaminophen 10/325mg tab PO PRN (21:46)
[2023-08-23] VITALS (11 sets, daily range): BP systolic 81–121; BP diastolic 52–86; PULSE 97–121; RESP 14–31; TEMP 97.4–98.6; O2SAT 94–100
[2023-08-23] MEDS: ceFAZolin/D5W- 1GM premix 50 ML IV SCH ×4 (00:21→23:58)
[2023-08-23] MEDS: sacubitril/valsartan 24mg-26mg tablet PO SCH ×2 (07:32→19:34)
[2023-08-23] MEDS: EMPAGLIFLOZIN 10 MG TABLET PO SCH (07:32)
[2023-08-23] MEDS: furosemide 40mg/4ml inj IV SCH ×2 (07:32→19:33)
[2023-08-23] MEDS: carVEDilol 12.5mg tablet PO SCH ×2 (07:33→19:34)
[2023-08-23] MEDS: apixaban 2.5mg tablet PO SCH ×2 (07:33→19:33)
[2023-08-23] MEDS: diphenhydrAMINE 25mg capsule PO PRN ×2 (07:33→14:39)
[2023-08-23] MEDS: spironolactone 25 MG tablet PO SCH (07:35)
[2023-08-23] MEDS: triamcinolone acetonide 0.5% cream 15gm TP SCH ×2 (09:20→19:35)
[2023-08-23] MEDS: insulin Lispro (HumaLOG) vial - multi-dose SQ SCH ×3 (09:22→19:28)
[2023-08-23 10:01] LABS: BASOPHILS % (AUTO) 0.6 % (0-1); EOSINOPHILS # (AUTO) 0.3 X10'3 (0-0.9); EOSINOPHILS % (AUTO) 2.8 % (0-6); HEMATOCRIT 38.2 % (35.0-45.0); LYMPHOCYTES # (AUTO) 1.7 X10'3 (1.1-4.8); LYMPHOCYTES % (AUTO) 18.8 % (21-51); MEAN CORPUSCULAR HEMOGLOBIN 24.9 PG (27.0-31.0); MEAN CORPUSCULAR HGB CONC 31.4 g/dL (33.0-36.5); MEAN CORPUSCULAR VOLUME 79.2 FL (78-98); MEAN PLATELET VOLUME 9.5 FL (7.4-10.4); MONOCYTES # (AUTO) 0.9 X10'3 (0-0.9); MONOCYTES % (AUTO) 10.3 % (2-12); NEUTROPHILS % (AUTO) 67.5 % (42-75); PLATELET COUNT 242 X10'3 (140-440); RED BLOOD COUNT 4.82 X10'6 (4.20-5.60); RED CELL DISTRIBUTION WIDTH 17.1 % (11.5-14.5); WHITE BLOOD COUNT 8.8 X10'3 (4.5-11.0)
[2023-08-23 10:10] LABS: ALANINE AMINOTRANSFERASE 8 U/L (12-78); ALBUMIN 2.7 G/DL (3.4-5.0); ALBUMIN/GLOBULIN RATIO 0.6 (1.1-1.5); ALKALINE PHOSPHATASE 105 IU/L (46-116); ANION GAP 9 (8-16); ASPARTATE AMINO TRANSFERASE 16 U/L (10-37); BILIRUBIN,TOTAL 0.5 MG/DL (0.1-1.0); BLOOD UREA NITROGEN 12 MG/DL (7-18); BUN/CREATININE RATIO 16.4 (10.0-20.0); CALCIUM 9.5 MG/DL (8.5-10.1); CHLORIDE 99 MMOL/L (99-107); CREATININE 0.73 MG/DL (0.40-0.90); GLUCOSE 158 MG/DL (70-104); MAGNESIUM 1.6 MG/DL (1.5-2.4); PHOSPHORUS 4.4 MG/DL (2.3-4.5); POTASSIUM 3.4 MMOL/L (3.5-5.1); SODIUM 136 MMOL/L (135-145); TOTAL CARBON DIOXIDE 28.4 MMOL/L (24-32); TOTAL PROTEIN 7.4 G/DL (6.4-8.2); eCRCL 91 ML/MIN; eGFR 85 ML/MIN
[2023-08-23] MEDS: potassium Cl 20 mEq SR tablet PO PRN (11:16)
[2023-08-23] MEDS ORDERED: amiodarone 150mg/dext, iso-os 100 ML IV ONE (15:20)
[2023-08-23] MEDS: amiodarone/D5 360MG/200ML BAG 200 ML IV SCH ×2 (17:47→23:48)
[2023-08-23 17:53] LABS: ATYPICAL PANCA <1:20 titer (Neg:<1:20); CYTOPLASMIC (C-ANCA) <1:20 titer (Neg:<1:20); PERINUCLEAR (P-ANCA) <1:20 titer (Neg:<1:20)
[2023-08-23] MEDS: LORazepam 1 MG tablet PO PRN (21:21)
[2023-08-23] MEDS: insulin glargine (Lantus) pen - multi-dose SQ SCH (21:30)
[2023-08-23] MEDS: HYDROcodone/acetaminophen 10/325mg tab PO PRN (23:11)
[2023-08-24] VITALS (19 sets, daily range): BP systolic 80–124; BP diastolic 49–89; PULSE 80–110; RESP 13–28; TEMP 97.5–98.2; O2SAT 95–100
[2023-08-24] MEDS: potassium Cl 20 mEq SR tablet PO PRN (01:15)
[2023-08-24] MEDS: HYDROcodone/acetaminophen 10/325mg tab PO PRN ×2 (03:14→20:53)
[2023-08-24] MEDS: amiodarone/D5 360MG/200ML BAG 200 ML IV SCH ×4 (03:33→21:45)
[2023-08-24 06:45] LABS: ALBUMIN 2.3 G/DL (3.4-5.0); ALBUMIN/GLOBULIN RATIO 0.6 (1.1-1.5); ALKALINE PHOSPHATASE 95 IU/L (46-116); ANION GAP 10 (8-16); ASPARTATE AMINO TRANSFERASE 15 U/L (10-37); BILIRUBIN,TOTAL 0.2 MG/DL (0.1-1.0); BLOOD UREA NITROGEN 15 MG/DL (7-18); BUN/CREATININE RATIO 19.7 (10.0-20.0); CALCIUM 9.3 MG/DL (8.5-10.1); CHLORIDE 102 MMOL/L (99-107); CREATININE 0.76 MG/DL (0.40-0.90); GLUCOSE 149 MG/DL (70-104); MAGNESIUM 1.6 MG/DL (1.5-2.4); PHOSPHORUS 4.7 MG/DL (2.3-4.5); POTASSIUM 3.5 MMOL/L (3.5-5.1); SODIUM 137 MMOL/L (135-145); TOTAL CARBON DIOXIDE 25.5 MMOL/L (24-32); TOTAL PROTEIN 6.1 G/DL (6.4-8.2); eCRCL 87 ML/MIN; eGFR 81 ML/MIN
[2023-08-24 06:47] LABS: ALANINE AMINOTRANSFERASE < 6 U/L (12-78)
[2023-08-24 07:06] LABS: BASOPHILS % (AUTO) 0.3 % (0-1); EOSINOPHILS # (AUTO) 0.2 X10'3 (0-0.9); EOSINOPHILS % (AUTO) 2.9 % (0-6); HEMATOCRIT 34.1 % (35.0-45.0); HEMOGLOBIN 10.8 g/dl (12.0-16.0); LYMPHOCYTES # (AUTO) 2.4 X10'3 (1.1-4.8); LYMPHOCYTES % (AUTO) 28.6 % (21-51); MEAN CORPUSCULAR HEMOGLOBIN 25.3 PG (27.0-31.0); MEAN CORPUSCULAR HGB CONC 31.7 g/dL (33.0-36.5); MEAN CORPUSCULAR VOLUME 79.6 FL (78-98); MEAN PLATELET VOLUME 9.5 FL (7.4-10.4); MONOCYTES # (AUTO) 1.1 X10'3 (0-0.9); MONOCYTES % (AUTO) 13.2 % (2-12); NEUTROPHILS # (AUTO) 4.6 X10'3 (1.8-7.7); PLATELET COUNT 195 X10'3 (140-440); RED BLOOD COUNT 4.28 X10'6 (4.20-5.60); RED CELL DISTRIBUTION WIDTH 17.2 % (11.5-14.5); WHITE BLOOD COUNT 8.3 X10'3 (4.5-11.0)
[2023-08-24] MEDS: ceFAZolin/D5W- 1GM premix 50 ML IV SCH ×3 (07:33→23:55)
[2023-08-24] MEDS: diphenhydrAMINE 25mg capsule PO PRN ×3 (07:33→20:50)
[2023-08-24] MEDS: furosemide 40mg/4ml inj IV SCH ×2 (07:34→20:37)
[2023-08-24] MEDS: spironolactone 25 MG tablet PO SCH (07:34)
[2023-08-24] MEDS: apixaban 2.5mg tablet PO SCH ×2 (07:34→20:38)
[2023-08-24] MEDS: EMPAGLIFLOZIN 10 MG TABLET PO SCH (07:34)
[2023-08-24] MEDS: triamcinolone acetonide 0.5% cream 15gm TP SCH ×2 (08:00→21:42)
[2023-08-24] MEDS: carVEDilol 12.5mg tablet PO SCH ×2 (10:12→20:50)
[2023-08-24] MEDS: sacubitril/valsartan 24mg-26mg tablet PO SCH ×2 (10:12→21:42)
[2023-08-24] MEDS: insulin Lispro (HumaLOG) vial - multi-dose SQ SCH ×3 (10:58→20:37)
[2023-08-24] MEDS ORDERED: ondansetron 4mg rapidly disintigrating tab PO PRN (13:02)
[2023-08-24] MEDS: diphenhydrAMINE 2%/zinc acetate cream TP SCH ×3 (13:55→21:42)
[2023-08-24] MEDS: LORazepam 1 MG tablet PO PRN ×2 (16:52→23:55)
[2023-08-24] MEDS: insulin glargine (Lantus) pen - multi-dose SQ SCH (23:48)
[2023-08-25] MEDS: amiodarone/D5 360MG/200ML BAG 200 ML IV SCH (00:01)
[2023-08-25 01:00] VITALS: BP 104/66; PULSE 85; RESP 16
[2023-08-25] MEDS: HYDROcodone/acetaminophen 10/325mg tab PO PRN (01:41)
[2023-08-25] MEDS: diphenhydrAMINE 25mg capsule PO PRN (01:47)
[2023-08-25 03:00] VITALS: BP 103/66; PULSE 78; RESP 16; TEMP 98.2; O2SAT 97
[2023-08-25 05:00] VITALS: BP 109/59; PULSE 78; RESP 18
[2023-08-25 07:17] LABS: % IRON SATURATION 9 % (11-46); IRON 21 UG/DL (49-151); TOTAL IRON BINDING CAPACITY 229 UG/DL (259-388)
[2023-08-25 07:36] VITALS: BP 121/74; PULSE 116; RESP 23; TEMP 97.7; O2SAT 97
[2023-08-25] MEDS: sacubitril/valsartan 24mg-26mg tablet PO SCH (07:48)
[2023-08-25] MEDS: apixaban 2.5mg tablet PO SCH (07:48)
[2023-08-25] MEDS: carVEDilol 12.5mg tablet PO SCH (07:48)
[2023-08-25] MEDS: spironolactone 25 MG tablet PO SCH (07:48)
[2023-08-25] MEDS: ceFAZolin/D5W- 1GM premix 50 ML IV SCH (07:48)
[2023-08-25] MEDS: EMPAGLIFLOZIN 10 MG TABLET PO SCH (07:48)
[2023-08-25] MEDS: diphenhydrAMINE 2%/zinc acetate cream TP SCH (07:51)
[2023-08-25] MEDS: triamcinolone acetonide 0.5% cream 15gm TP SCH (07:51)
[2023-08-25 07:57] LABS: FERRITIN 138 NG/ML (8-252)
[2023-08-25] MEDS: furosemide 40mg/4ml inj IV SCH (07:59)
[2023-08-25 08:00] VITALS: RESP 23; O2SAT 97
[2023-08-25] MEDS: insulin Lispro (HumaLOG) vial - multi-dose SQ SCH (09:07)
[2023-08-25] MEDS ORDERED: fluconazole 100mg tablet PO ONE (10:35)
[2023-08-25 11:00] VITALS: BP 94/55; PULSE 84; RESP 19; TEMP 98.1; O2SAT 98
[2023-08-25] MEDS ORDERED: amiodarone 200mg tablet PO SCH ×2 (11:00→20:00)
[2023-08-25] MEDS ORDERED: SPIR25TA PO (11:04)
[2023-08-25] MEDS ORDERED: SACU1TAB PO (11:04)
[2023-08-25] MEDS ORDERED: CARV-50 PO (11:04)
[2023-08-25] MEDS ORDERED: FURO20TA4 PO (11:08)
[2023-08-25] MEDS ORDERED: AMI200T PO (11:40)
== END 2023-08-25 12:25 | disposition home or self-care (01) | DRG 602 ==
LOC: ER 09:16 → ED HOLD 15:50 → PCU 3S 17:45
PROVIDERS: ADMIT Family Medicine; ATTEND Family Medicine
DX: L03.116 Cellulitis of left lower limb (principal); I50.23 Acute on chronic systolic (congestive) heart failure; I82.592 Chronic embolism and thrombosis of other specified deep vein of left lower extremity; I48.92 Unspecified atrial flutter; R78.81 Bacteremia; L97.429 Non-pressure chronic ulcer of left heel and midfoot with unspecified severity; Q21.0 Ventricular septal defect; I11.0 Hypertensive heart disease with heart failure; I48.91 Unspecified atrial fibrillation; G89.29 Other chronic pain; E11.621 Type 2 diabetes mellitus with foot ulcer; L97.529 Non-pressure chronic ulcer of other part of left foot with unspecified severity; I77.6 Arteritis, unspecified; D64.9 Anemia, unspecified; Z88.5 Allergy status to narcotic agent; Z88.0 Allergy status to penicillin; Z91.09 Other allergy status, other than to drugs and biological substances; Z85.42 Personal history of malignant neoplasm of other parts of uterus; Z85.43 Personal history of malignant neoplasm of ovary; Z90.710 Acquired absence of both cervix and uterus; Z83.3 Family history of diabetes mellitus
CPT/HCPCS: 36415; 71045; 73630; 73700; 76882; 80053; 81001; 82607; 82728; 82948; 83036; 83540; 83550; 83605; 83735; 83880; 84100; 84484; 85025; 85651; 86038; 86140; 86256; 87040; 87077; 87081; 87186; 93308; 93971; 99285; A6250; A6449; G0378; J0282; J0690; J1815; J1940; J3490; J7040; Q0163

== ENCOUNTER 2023-09-01 10:56 | Emergency (ER) | payer SELFPAY ==
[~2023-09-01] VITALS: Ht 170.2 cm; Wt 104.9 kg
[~2023-09-01 10:56] MED LIST changes: +AMI200T PO; -CARCD120C PO; -CARV-49 PO; +CARV-50 PO; +FURO20TA4 PO; +SACU1TAB PO; +SPIR25TA PO
[2023-09-01 11:38] LABS: BASOPHILS % (AUTO) 0.5 % (0-1); EOSINOPHILS # (AUTO) 0.1 X10'3 (0-0.9); EOSINOPHILS % (AUTO) 1.5 % (0-6); HEMOGLOBIN 12.1 g/dl (12.0-16.0); LYMPHOCYTES # (AUTO) 1.5 X10'3 (1.1-4.8); LYMPHOCYTES % (AUTO) 18.1 % (21-51); MEAN CORPUSCULAR HEMOGLOBIN 24.9 PG (27.0-31.0); MEAN CORPUSCULAR HGB CONC 31.8 g/dL (33.0-36.5); MEAN CORPUSCULAR VOLUME 78.2 FL (78-98); MEAN PLATELET VOLUME 9.2 FL (7.4-10.4); MONOCYTES # (AUTO) 0.7 X10'3 (0-0.9); MONOCYTES % (AUTO) 8.3 % (2-12); NEUTROPHILS % (AUTO) 71.6 % (42-75); PLATELET COUNT 240 X10'3 (140-440); RED BLOOD COUNT 4.86 X10'6 (4.20-5.60); RED CELL DISTRIBUTION WIDTH 17.5 % (11.5-14.5); WHITE BLOOD COUNT 8.3 X10'3 (4.5-11.0)
[2023-09-01 11:51] LABS: APTT 27 SECONDS (22-32); INR 1.2 INR; PROTHROMBIN TIME 12.7 SECONDS (9.0-12.0)
[2023-09-01 11:57] LABS: ALANINE AMINOTRANSFERASE 12 U/L (12-78); ALBUMIN 3.1 G/DL (3.4-5.0); ALBUMIN/GLOBULIN RATIO 0.7 (1.1-1.5); ALKALINE PHOSPHATASE 116 IU/L (46-116); ANION GAP 11 (8-16); ASPARTATE AMINO TRANSFERASE 17 U/L (10-37); BILIRUBIN,TOTAL 0.6 MG/DL (0.1-1.0); BLOOD UREA NITROGEN 11 MG/DL (7-18); BUN/CREATININE RATIO 14.1 (10.0-20.0); CALCIUM 9.5 MG/DL (8.5-10.1); CHLORIDE 98 MMOL/L (99-107); CREATININE 0.78 MG/DL (0.40-0.90); GLUCOSE 321 MG/DL (70-104); POTASSIUM 3.5 MMOL/L (3.5-5.1); SODIUM 134 MMOL/L (135-145); TOTAL CARBON DIOXIDE 25.1 MMOL/L (24-32); TOTAL PROTEIN 7.6 G/DL (6.4-8.2); eCRCL 85 ML/MIN; eGFR 78 ML/MIN
[2023-09-01 12:03] VITALS: TEMP 97.9
[2023-09-01] MEDS ORDERED: iohexol 300mg/ml 100ml inj. ONE (12:13)
[2023-09-01] MEDS ORDERED: cephalexin 500mg capsule PO ONE (14:35)
[2023-09-01] MEDS ORDERED: CEPH-585 PO (14:38)
[2023-09-01 15:14] VITALS: BP 127/80; PULSE 64; RESP 16; O2SAT 95
== END 2023-09-01 15:16 | disposition home or self-care (01) ==
LOC: ER 10:56
DX: L08.89 Other specified local infections of the skin and subcutaneous tissue (principal); R22.0 Localized swelling, mass and lump, head; E11.9 Type 2 diabetes mellitus without complications; I10 Essential (primary) hypertension; Z86.14 Personal history of Methicillin resistant Staphylococcus aureus infection; Z88.0 Allergy status to penicillin; Z88.5 Allergy status to narcotic agent; Z79.899 Other long term (current) drug therapy
CPT/HCPCS: 36415; 70450; 70487; 71045; 80053; 85025; 85610; 85730; 93005; 99285; J3490; J7030; Q9967

== ENCOUNTER 2023-11-15 13:07 | Emergency (ER) | payer SELFPAY ==
[~2023-11-15] VITALS: Ht 170.2 cm; Wt 89.5 kg
[2023-11-15 13:26] VITALS: BP 150/95; PULSE 110; RESP 18; O2SAT 98
[2023-11-15 13:27] LABS: BASOPHILS % (AUTO) 0.3 % (0-1); EOSINOPHILS # (AUTO) 0.1 X10'3 (0-0.9); EOSINOPHILS % (AUTO) 2.1 % (0-6); HEMATOCRIT 40.8 % (35.0-45.0); HEMOGLOBIN 13.4 g/dl (12.0-16.0); LYMPHOCYTES # (AUTO) 0.7 X10'3 (1.1-4.8); LYMPHOCYTES % (AUTO) 9.6 % (21-51); MEAN CORPUSCULAR HEMOGLOBIN 25.3 PG (27.0-31.0); MEAN CORPUSCULAR HGB CONC 32.8 g/dL (33.0-36.5); MEAN PLATELET VOLUME 8.7 FL (7.4-10.4); MONOCYTES # (AUTO) 0.9 X10'3 (0-0.9); NEUTROPHILS # (AUTO) 5.1 X10'3 (1.8-7.7); PLATELET COUNT 188 X10'3 (140-440); RED BLOOD COUNT 5.31 X10'6 (4.20-5.60); RED CELL DISTRIBUTION WIDTH 19.4 % (11.5-14.5); WHITE BLOOD COUNT 6.8 X10'3 (4.5-11.0)
[2023-11-15 13:59] LABS: ANISOCYTOSIS 2+; MICROCYTOSIS 1+; PLATELET ESTIMATE NORMAL
[2023-11-15 14:00] LABS: STOMATOCYTES 1+
[2023-11-15 14:21] LABS: ALANINE AMINOTRANSFERASE 23 U/L (12-78); ALBUMIN 3.2 G/DL (3.4-5.0); ALBUMIN/GLOBULIN RATIO 0.7 (1.1-1.5); ALKALINE PHOSPHATASE 176 IU/L (46-116); ANION GAP 10 (8-16); ASPARTATE AMINO TRANSFERASE 34 U/L (10-37); BILIRUBIN,TOTAL 0.4 MG/DL (0.1-1.0); BLOOD UREA NITROGEN 14 MG/DL (7-18); BUN/CREATININE RATIO 15.4 (10.0-20.0); CALCIUM 9.4 MG/DL (8.5-10.1); CHLORIDE 93 MMOL/L (99-107); CREATININE 0.91 MG/DL (0.40-0.90); POTASSIUM 4.2 MMOL/L (3.5-5.1); PRO BRAIN NATRIURETIC PEPTIDE 928 PG/ML (0-125); SODIUM 129 MMOL/L (135-145); TOTAL CARBON DIOXIDE 26.2 MMOL/L (24-32); TOTAL PROTEIN 7.5 G/DL (6.4-8.2); eCRCL 73 ML/MIN; eGFR 66 ML/MIN
[2023-11-15 14:29] LABS: GLUCOSE 516 MG/DL (70-104)
[2023-11-15 16:57] LABS: D-DIMER 0.24 MG/L FEU (0-0.50)
[2023-11-15 17:37] VITALS: TEMP 98.4
== END 2023-11-15 17:44 | disposition home or self-care (01) ==
LOC: ER 13:07
DX: R07.89 Other chest pain (principal); R06.02 Shortness of breath; I48.91 Unspecified atrial fibrillation; I10 Essential (primary) hypertension; E11.9 Type 2 diabetes mellitus without complications; Z85.43 Personal history of malignant neoplasm of ovary; Z90.710 Acquired absence of both cervix and uterus; Z95.5 Presence of coronary angioplasty implant and graft; Z79.899 Other long term (current) drug therapy; Z88.0 Allergy status to penicillin; Z88.5 Allergy status to narcotic agent; Z91.048 Other nonmedicinal substance allergy status; Z79.4 Long term (current) use of insulin
CPT/HCPCS: 36415; 71045; 80053; 83880; 84484; 85008; 85025; 85379; 93005; 99285

== ENCOUNTER 2023-12-22 03:00 | Emergency (ER) | payer SELFPAY ==
[~2023-12-22] VITALS: Ht 170.2 cm; Wt 89.5 kg
[2023-12-22 05:49] VITALS: BP 120/83; PULSE 112; RESP 18; TEMP 98.6; O2SAT 97
== END 2023-12-22 05:50 | disposition home or self-care (01) ==
LOC: ER 03:01
DX: S09.90XA Unspecified injury of head, initial encounter (principal); I10 Essential (primary) hypertension; E11.9 Type 2 diabetes mellitus without complications; Z90.710 Acquired absence of both cervix and uterus; Z88.0 Allergy status to penicillin; Z88.5 Allergy status to narcotic agent; Z79.899 Other long term (current) drug therapy; Y08.89XA Assault by other specified means, initial encounter; Y93.89 Activity, other specified; Y92.89 Other specified places as the place of occurrence of the external cause; Y99.8 Other external cause status
CPT/HCPCS: 70450; 99284

== ENCOUNTER 2024-02-20 14:43 | Emergency (ER) | payer OTHER ==
[~2024-02-20] VITALS: Ht 170.2 cm; Wt 95.8 kg
[2024-02-20 15:11] VITALS: BP 113/50; PULSE 108; RESP 16; TEMP 99.6; O2SAT 96
== END 2024-02-20 19:30 | disposition left against medical advice (07) ==
LOC: ER 14:43
DX: E11.65 Type 2 diabetes mellitus with hyperglycemia (principal); R51.9 Headache, unspecified; R53.1 Weakness; Z53.21 Procedure and treatment not carried out due to patient leaving prior to being seen by health care provider
CPT/HCPCS: J7030

== ENCOUNTER 2024-03-04 21:03 | Inpatient (IN) | payer OTHER ==
[~2024-03-04] VITALS: Ht 170.2 cm; Wt 95.2 kg
[2024-03-04 21:45] LABS: BASOPHILS # (AUTO) 0.1 X10'3 (0-0.2); BASOPHILS % (AUTO) 0.6 % (0-1); EOSINOPHILS # (AUTO) 0.7 X10'3 (0-0.9); EOSINOPHILS % (AUTO) 7.1 % (0-6); HEMATOCRIT 41.2 % (35.0-45.0); LYMPHOCYTES # (AUTO) 2.4 X10'3 (1.1-4.8); LYMPHOCYTES % (AUTO) 23.7 % (21-51); MEAN CORPUSCULAR HGB CONC 33.9 g/dL (33.0-36.5); MEAN CORPUSCULAR VOLUME 85.5 FL (78-98); MEAN PLATELET VOLUME 8.2 FL (7.4-10.4); MONOCYTES # (AUTO) 0.7 X10'3 (0-0.9); MONOCYTES % (AUTO) 6.9 % (2-12); NEUTROPHILS # (AUTO) 6.1 X10'3 (1.8-7.7); NEUTROPHILS % (AUTO) 61.7 % (42-75); PLATELET COUNT 245 X10'3 (140-440); RED BLOOD COUNT 4.82 X10'6 (4.20-5.60); RED CELL DISTRIBUTION WIDTH 14.1 % (11.5-14.5)
[2024-03-04 21:52] LABS: ALBUMIN 3.1 G/DL (3.4-5.0); ANION GAP 11 (8-16); BLOOD UREA NITROGEN 19 MG/DL (7-18); BUN/CREATININE RATIO 23.8 (10.0-20.0); CALCIUM 9.8 MG/DL (8.5-10.1); CHLORIDE 94 MMOL/L (99-107); POTASSIUM 4.3 MMOL/L (3.5-5.1); PRO BRAIN NATRIURETIC PEPTIDE 486 PG/ML (0-125); SODIUM 128 MMOL/L (135-145); TOTAL CARBON DIOXIDE 22.8 MMOL/L (24-32); eCRCL 83 ML/MIN; eGFR 76 ML/MIN
[2024-03-04 22:00] LABS: GLUCOSE 459 MG/DL (70-104)
[2024-03-04] MEDS: ringers solution, lactated 500ml IV solution IV ONE (23:48)
[2024-03-05] VITALS (12 sets, daily range): BP systolic 107–146; BP diastolic 60–92; PULSE 88–109; RESP 18–19; TEMP 97.5–98.2; O2SAT 95–96
[2024-03-05 00:26] LABS: BILIRUBIN,URINE NEGATIVE (Neg); CLARITY,URINE SLIGHTLY CLOUDY (Clear); COLOR,URINE STRAW (Yellow); GLUCOSE, URINE >=1000 mg/dl (Neg); KETONES,URINE 15 mg/dl (Neg); LEUKOCYTE ESTERASE ,URINE MODERATE (Neg); NITRITES, URINE NEGATIVE (Neg); OCCULT BLOOD,URINE MODERATE (Neg); PROTEIN,URINE 30 mg/dl (Neg); UROBILINOGEN,URINE 0.2 E.U/dL (0.2-1.0)
[2024-03-05 00:27] LABS: UA COLLECTION TYPE VOIDED
[2024-03-05 00:38] LABS: BACTERIA,URINE 4+ /HPF (Neg); MUCUS STRANDS NONE SEEN /LPF (Neg); SQUAMOUS EPITHELIAL CELL,UR MODERATE /LPF (FEW); WBC CLUMPS,URINE FEW /HPF (NEGATIVE); WBC,URINE 20-30 /HPF (0-4)
[2024-03-05 00:39] LABS: TRICHOMONAS,URINE FEW /HPF (NEGATIVE)
[2024-03-05] MEDS ORDERED: nitroGLYCERIN 0.4mg SUBLingual tab SL PRN ×2 (00:55)
[2024-03-05] MEDS ORDERED: DEXTROSE 15 GM of carb/4 tabs (each vial/BOTTLE has 4 tablets) PO PRN ×4 (00:55→06:55)
[2024-03-05] MEDS ORDERED: aminophylline 250mg/10ml inj. IV PRN (00:55)
[2024-03-05] MEDS ORDERED: dextrose 50%-water 50ml dispensing syringe IV PRN ×4 (00:55→06:55)
[2024-03-05] MEDS ORDERED: mag hydrox/Alum hydrox/simeth 30ml oral suspension PO PRN (00:55)
[2024-03-05] MEDS ORDERED: magnesium 4gm in 100ml NS 100 ML IV PRN (00:55)
[2024-03-05] MEDS ORDERED: magnesium Cl slow-release 64mg tablet PO PRN (00:55)
[2024-03-05] MEDS ORDERED: metoprolol tartrate 1mg/ml inj IV PRN (00:55)
[2024-03-05] MEDS ORDERED: glucagon, human recombinant 1mg kit SUBCUT PRN ×2 (00:55→06:55)
[2024-03-05] MEDS ORDERED: potassium Cl 20 mEq SR tablet PO PRN ×2 (00:55)
[2024-03-05] MEDS ORDERED: magnesium 2GM in 50ml NS 50 ML IV PRN (00:55)
[2024-03-05] MEDS ORDERED: potassium Cl 40MEQ/1/2NS 520ml 520 ML IV PRN (00:55)
[2024-03-05] MEDS ORDERED: magnesium hydroxide 30ml (MOM) UD suspension PO PRN (00:55)
[2024-03-05] MEDS ORDERED: morphine 2 MG/ML inj. syringe IV PRN (00:55)
[2024-03-05] MEDS: carvedilol 6.25mg tablet PO ONE (01:12)
[2024-03-05] MEDS: aspirin 81mg tab.chew PO ONE (01:13)
[2024-03-05] MEDS: metoprolol tartrate 1mg/ml inj IV ONE (01:13)
[2024-03-05] MEDS ORDERED: METF-1203 PO (01:26)
[2024-03-05] MEDS ORDERED: FURO-150 PO (01:26)
[2024-03-05] MEDS ORDERED: AMIO200T72 PO (01:26)
[2024-03-05] MEDS ORDERED: SPIR25TA5 PO (01:26)
[2024-03-05] MEDS ORDERED: CARV-50 PO (01:26)
[2024-03-05 01:37] LABS: HEMOGLOBIN A1C > 12.0 % (4.5-6.2)
[2024-03-05] MEDS: acetaminophen 325mg tablet PO ONE (04:12)
[2024-03-05] MEDS: INSULIN LISPRO 100 UNIT/ML INSULN.PEN MULTI-DOSE SQ SCH ×2 (07:00→07:33)
[2024-03-05] MEDS: atorvastatin 20mg tablet PO SCH (07:35)
[2024-03-05] MEDS: carVEDilol 12.5mg tablet PO SCH ×2 (07:35→20:47)
[2024-03-05] MEDS: amiodarone 200mg tablet PO SCH (07:35)
[2024-03-05] MEDS: CefTRIAXone/D5W-Rocephin 1gm 50 ML IV SCH (07:35)
[2024-03-05] MEDS: normal saline 1000ml 1,000 ML IV ONE (07:35)
[2024-03-05] MEDS: enoxaparin 40mg/0.4ml syringe SUBCUT SCH (07:35)
[2024-03-05] MEDS: K and/or MAG REPLACEMENT MC SCH (08:00)
[2024-03-05] MEDS: spironolactone 25 MG tablet PO SCH (08:00)
[2024-03-05] MEDS: regadenoson 0.4mg/5ml syringe IV PRN (12:54)
[2024-03-05] MEDS: morphine 2 MG/ML inj. syringe IV PRN (14:41)
[2024-03-05] MEDS: acetaminophen 325mg tablet PO PRN (17:40)
[2024-03-05] MEDS ORDERED: carVEDilol 12.5mg tablet PO SCH (21:00)
[2024-03-05] MEDS: HYDROcodone/acetaminophen 5mg/325mg tablet PO PRN (23:13)
[2024-03-05] MEDS: insulin glargine (Lantus) pen - multi-dose SQ SCH (23:19)
[2024-03-06 02:00] VITALS: BP 113/73; PULSE 95; RESP 20; TEMP 97.6; O2SAT 95
[2024-03-06] MEDS: ondansetron/PF 4mg/2ml inj IV PRN (02:52)
[2024-03-06 06:00] VITALS: BP 126/83; PULSE 91; RESP 17; TEMP 97.8; O2SAT 95
[2024-03-06 07:38] LABS: BASOPHILS % (AUTO) 0.4 % (0-1); EOSINOPHILS # (AUTO) 0.8 X10'3 (0-0.9); EOSINOPHILS % (AUTO) 7.8 % (0-6); HEMATOCRIT 39.1 % (35.0-45.0); HEMOGLOBIN 12.9 g/dl (12.0-16.0); LYMPHOCYTES # (AUTO) 1.9 X10'3 (1.1-4.8); LYMPHOCYTES % (AUTO) 19.7 % (21-51); MEAN CORPUSCULAR HEMOGLOBIN 28.1 PG (27.0-31.0); MEAN CORPUSCULAR HGB CONC 32.9 g/dL (33.0-36.5); MEAN CORPUSCULAR VOLUME 85.6 FL (78-98); MEAN PLATELET VOLUME 8.3 FL (7.4-10.4); MONOCYTES # (AUTO) 0.8 X10'3 (0-0.9); MONOCYTES % (AUTO) 8.1 % (2-12); NEUTROPHILS # (AUTO) 6.1 X10'3 (1.8-7.7); PLATELET COUNT 219 X10'3 (140-440); RED BLOOD COUNT 4.57 X10'6 (4.20-5.60); RED CELL DISTRIBUTION WIDTH 14.3 % (11.5-14.5); WHITE BLOOD COUNT 9.6 X10'3 (4.5-11.0)
[2024-03-06 07:57] LABS: ALBUMIN 2.4 G/DL (3.4-5.0); ANION GAP 6 (8-16); BLOOD UREA NITROGEN 26 MG/DL (7-18); BUN/CREATININE RATIO 39.4 (10.0-20.0); CALCIUM 9.2 MG/DL (8.5-10.1); CHLORIDE 102 MMOL/L (99-107); CHOL/HDL RATIO 2.2 (0.00-4.99); CHOLESTEROL 111 MG/DL (0-200); CREATININE 0.66 MG/DL (0.40-0.90); GLUCOSE 221 MG/DL (70-104); HDL CHOLESTEROL 51 MG/DL (35-60); LDL CHOLESTEROL 53 MG/DL (50-100); POTASSIUM 4.5 MMOL/L (3.5-5.1); SODIUM 134 MMOL/L (135-145); TOTAL CARBON DIOXIDE 26.3 MMOL/L (24-32); TRIGLYCERIDES 57 MG/DL (20-135); eCRCL 100 ML/MIN; eGFR > 90 ML/MIN
[2024-03-06] MEDS: apixaban 5mg tablet PO SCH (08:00)
[2024-03-06 11:00] VITALS: BP 117/73; PULSE 87; RESP 15; TEMP 97.7; O2SAT 93
[2024-03-06 18:00] VITALS: BP 133/88; PULSE 106; RESP 17; TEMP 97.7; O2SAT 97
[2024-03-06] MEDS: carVEDilol 12.5mg tablet PO SCH (19:50)
[2024-03-06 20:00] VITALS: RESP 17; O2SAT 97
[2024-03-06 22:00] VITALS: BP 128/88; PULSE 105; RESP 25; TEMP 97.1; O2SAT 94
[2024-03-07] VITALS (7 sets, daily range): BP systolic 92–132; BP diastolic 52–88; PULSE 76–93; RESP 10–18; TEMP 96.8–98.7; O2SAT 94–99
[2024-03-07 05:48] LABS: ALBUMIN 2.4 G/DL (3.4-5.0); ANION GAP 7 (8-16); BLOOD UREA NITROGEN 26 MG/DL (7-18); BUN/CREATININE RATIO 44.1 (10.0-20.0); CALCIUM 9.3 MG/DL (8.5-10.1); CHLORIDE 102 MMOL/L (99-107); CREATININE 0.59 MG/DL (0.40-0.90); GLUCOSE 161 MG/DL (70-104); POTASSIUM 4.5 MMOL/L (3.5-5.1); SODIUM 137 MMOL/L (135-145); TOTAL CARBON DIOXIDE 28.3 MMOL/L (24-32); eCRCL 112 ML/MIN; eGFR > 90 ML/MIN
[2024-03-07 06:01] LABS: BASOPHILS % (AUTO) 0.3 % (0-1); EOSINOPHILS # (AUTO) 0.6 X10'3 (0-0.9); EOSINOPHILS % (AUTO) 5.9 % (0-6); HEMATOCRIT 40.2 % (35.0-45.0); HEMOGLOBIN 13.1 g/dl (12.0-16.0); LYMPHOCYTES # (AUTO) 1.9 X10'3 (1.1-4.8); LYMPHOCYTES % (AUTO) 20.2 % (21-51); MEAN CORPUSCULAR HEMOGLOBIN 28.1 PG (27.0-31.0); MEAN CORPUSCULAR HGB CONC 32.5 g/dL (33.0-36.5); MEAN CORPUSCULAR VOLUME 86.3 FL (78-98); MEAN PLATELET VOLUME 8.7 FL (7.4-10.4); MONOCYTES # (AUTO) 0.7 X10'3 (0-0.9); NEUTROPHILS # (AUTO) 6.1 X10'3 (1.8-7.7); NEUTROPHILS % (AUTO) 65.6 % (42-75); PLATELET COUNT 237 X10'3 (140-440); RED BLOOD COUNT 4.65 X10'6 (4.20-5.60); RED CELL DISTRIBUTION WIDTH 14.3 % (11.5-14.5); WHITE BLOOD COUNT 9.3 X10'3 (4.5-11.0)
[2024-03-07] MEDS ORDERED: LIDOcaine 1% (10mg/ml) 2ml vial ONE (09:17)
[2024-03-07] MEDS ORDERED: verapamil 2.5 mg/ml inj IV ONE (09:17)
[2024-03-07] MEDS ORDERED: heparin 1,000unit/ml 10ml vial 10 ML ONE (09:18)
[2024-03-07] MEDS ORDERED: iohexol 350 MG/ML 50ML vial IV ONE (09:18)
[2024-03-07] MEDS ORDERED: iohexol 350MG/ML 100ml bottle IV ONE ×2 (09:18→10:37)
[2024-03-07] MEDS ORDERED: fentaNYL/PF 50MCG/1 ML 2ML syringe ONE (09:18)
[2024-03-07] MEDS ORDERED: midazolam 1 mg/ML 2ml injection ONE ×2 (09:18→10:58)
[2024-03-07] MEDS ORDERED: nitroGLYCERIN 500mcg/5mL D5W 5 ML IV ONE ×2 (09:20→10:45)
[2024-03-07] MEDS ORDERED: heparin 25,000 UNIT/250ml bag 250 ML IV ONE (10:30)
[2024-03-07] MEDS ORDERED: clopidogrel 300mg tablet ONE (10:54)
[2024-03-07] MEDS: normal saline 1000ml 1,000 ML IV SCH (12:37)
[2024-03-07] MEDS: sotalol 80mg tablet PO SCH (14:52)
[2024-03-07] MEDS ORDERED: metFORMIN 500mg tablet PO SCH (20:00)
[2024-03-08 01:03] LABS: BASOPHILS % (AUTO) 0.4 % (0-1); EOSINOPHILS # (AUTO) 0.5 X10'3 (0-0.9); EOSINOPHILS % (AUTO) 5.2 % (0-6); HEMOGLOBIN 12.6 g/dl (12.0-16.0); LYMPHOCYTES # (AUTO) 1.6 X10'3 (1.1-4.8); LYMPHOCYTES % (AUTO) 15.7 % (21-51); MEAN CORPUSCULAR HEMOGLOBIN 28.6 PG (27.0-31.0); MEAN CORPUSCULAR HGB CONC 33.1 g/dL (33.0-36.5); MEAN CORPUSCULAR VOLUME 86.5 FL (78-98); MEAN PLATELET VOLUME 8.2 FL (7.4-10.4); MONOCYTES # (AUTO) 1.1 X10'3 (0-0.9); MONOCYTES % (AUTO) 11.1 % (2-12); NEUTROPHILS # (AUTO) 6.8 X10'3 (1.8-7.7); NEUTROPHILS % (AUTO) 67.6 % (42-75); PLATELET COUNT 218 X10'3 (140-440); RED BLOOD COUNT 4.39 X10'6 (4.20-5.60); WHITE BLOOD COUNT 10.1 X10'3 (4.5-11.0)
[2024-03-08 01:20] LABS: ALBUMIN 2.4 G/DL (3.4-5.0); ANION GAP 6 (8-16); BLOOD UREA NITROGEN 28 MG/DL (7-18); BUN/CREATININE RATIO 36.8 (10.0-20.0); CALCIUM 9.4 MG/DL (8.5-10.1); CHLORIDE 102 MMOL/L (99-107); CREATININE 0.76 MG/DL (0.40-0.90); GLUCOSE 123 MG/DL (70-104); POTASSIUM 4.8 MMOL/L (3.5-5.1); PRO BRAIN NATRIURETIC PEPTIDE 239 PG/ML (0-125); SODIUM 136 MMOL/L (135-145); TOTAL CARBON DIOXIDE 28.3 MMOL/L (24-32); eCRCL 87 ML/MIN; eGFR 81 ML/MIN
[2024-03-08 02:29] VITALS: BP 113/78; PULSE 72; RESP 16; TEMP 97.5; O2SAT 95
[2024-03-08] MEDS: ondansetron 4mg rapidly disintigrating tab PO PRN (05:18)
[2024-03-08 07:44] VITALS: BP 131/86; PULSE 75; RESP 15; TEMP 97.8; O2SAT 97
[2024-03-08 08:00] VITALS: RESP 15; O2SAT 97
[2024-03-08] MEDS: clopidogrel 75mg tablet PO SCH (08:15)
[2024-03-08] MEDS: furosemide 20MG tablet PO SCH (08:16)
[2024-03-08] MEDS ORDERED: LANTUS SQ (10:05)
[2024-03-08] MEDS ORDERED: CLOP75TA34 PO (10:05)
[2024-03-08] MEDS ORDERED: ATOR20TA66 PO (10:05)
[2024-03-08] MEDS ORDERED: ASPI-611 PO (10:07)
[2024-03-08] MEDS ORDERED: CEPH500C81 PO (10:44)
[2024-03-08 11:00] VITALS: BP 126/85; PULSE 76; RESP 23; TEMP 97.6; O2SAT 96
[2024-03-08] MEDS ORDERED: APIX5TAB3 PO ×2 (11:09→11:49)
[2024-03-08] MEDS ORDERED: SOTA80TA73 PO ×2 (11:09→11:43)
[2024-03-08] MEDS ORDERED: SULF1TAB48 PO (12:42)
== END 2024-03-08 13:18 | disposition home or self-care (01) | DRG 322 ==
LOC: ER 21:04 → UNDOADMIN 03-05 01:01 → ED HOLD 03-05 01:01 → PCU 3S 03-05 11:05
PROVIDERS: ADMIT Surgery Surgical Critical Care; ATTEND Internal Medicine
PROC: 4A02XM4 Measurement of Cardiac Total Activity, External Approach (ICD-10-PCS; 2024-03-05)
PROC: 3E033HZ Introduction of Radioactive Substance into Peripheral Vein, Percutaneous Approach (ICD-10-PCS; 2024-03-05)
PROC: 4A023N7 Measurement of Cardiac Sampling and Pressure, Left Heart, Percutaneous Approach (ICD-10-PCS; principal; 2024-03-07)
PROC: 027135Z Dilation of Coronary Artery, Two Arteries with Two Drug-eluting Intraluminal Devices, Percutaneous Approach (ICD-10-PCS; 2024-03-07)
PROC: B2111ZZ Fluoroscopy of Multiple Coronary Arteries using Low Osmolar Contrast (ICD-10-PCS; 2024-03-07)
PROC: B2151ZZ Fluoroscopy of Left Heart using Low Osmolar Contrast (ICD-10-PCS; 2024-03-07)
PROC: 5A2204Z Restoration of Cardiac Rhythm, Single (ICD-10-PCS; 2024-03-07)
DX: I25.110 Atherosclerotic heart disease of native coronary artery with unstable angina pectoris (principal); I48.92 Unspecified atrial flutter; N39.0 Urinary tract infection, site not specified; E87.1 Hypo-osmolality and hyponatremia; I50.42 Chronic combined systolic (congestive) and diastolic (congestive) heart failure; I24.9 Acute ischemic heart disease, unspecified; I45.10 Unspecified right bundle-branch block; E78.5 Hyperlipidemia, unspecified; E11.65 Type 2 diabetes mellitus with hyperglycemia; I11.0 Hypertensive heart disease with heart failure; G89.29 Other chronic pain; I48.91 Unspecified atrial fibrillation; Z63.4 Disappearance and death of family member; Z82.3 Family history of stroke; Z83.3 Family history of diabetes mellitus; Z85.43 Personal history of malignant neoplasm of ovary; Z87.442 Personal history of urinary calculi; Z90.711 Acquired absence of uterus with remaining cervical stump; Z90.49 Acquired absence of other specified parts of digestive tract; Z79.01 Long term (current) use of anticoagulants; Z79.899 Other long term (current) drug therapy; Z86.14 Personal history of Methicillin resistant Staphylococcus aureus infection; Z88.0 Allergy status to penicillin; Z88.5 Allergy status to narcotic agent; Z79.4 Long term (current) use of insulin; Z82.49 Family history of ischemic heart disease and other diseases of the circulatory system; Z91.199 Patient's noncompliance with other medical treatment and regimen due to unspecified reason
CPT/HCPCS: 92960; 93306; 93458; C9600; C9601; 36415; 71045; 76937; 78452; 80048; 80061; 81001; 81003; 82948; 83036; 83880; 84484; 85025; 85347; 87081; 87088; 87186; 93005; 93017; 96374; 97116; 97161; 97530; 99152; 99153; 99285; A6258; A9500; C1725; C1751; C1769; C1874; C1894; G0378; J0696; J1644; J1650; J1815; J2250; J2270; J2405; J2785; J3010; J3490; J7030; J7040; J7120; Q9967

== ENCOUNTER 2024-03-11 14:04 | Emergency (ER) | payer OTHER ==
[~2024-03-11] VITALS: Ht 170.2 cm; Wt 93.6 kg
[~2024-03-11 14:04] MED LIST changes: -AMI200T PO; +ASPI-611 PO; +ATOR20TA66 PO; -CARV-50 PO; +CLOP75TA34 PO; +FURO-150 PO; -FURO20TA4 PO; -SACU1TAB PO; +SOTA80TA73 PO; -SPIR25TA PO; +SPIR25TA5 PO; +SULF1TAB48 PO
[2024-03-11 14:06] VITALS: TEMP 97.5
[2024-03-11 16:02] VITALS: PULSE 72; O2SAT 96
[2024-03-11] MEDS: LORazepam 2 mg/ml vial IV ONE (16:07)
[2024-03-11] MEDS: fentaNYL/PF 50MCG/1 ML 2ML syringe IV ONE (16:07)
[2024-03-11 16:22] LABS: BASOPHILS % (AUTO) 0.3 % (0-1); EOSINOPHILS # (AUTO) 0.3 X10'3 (0-0.9); EOSINOPHILS % (AUTO) 2.7 % (0-6); HEMATOCRIT 39.9 % (35.0-45.0); HEMOGLOBIN 13.1 g/dl (12.0-16.0); LYMPHOCYTES # (AUTO) 1.5 X10'3 (1.1-4.8); LYMPHOCYTES % (AUTO) 12.8 % (21-51); MEAN CORPUSCULAR HEMOGLOBIN 28.2 PG (27.0-31.0); MEAN CORPUSCULAR HGB CONC 32.7 g/dL (33.0-36.5); MEAN CORPUSCULAR VOLUME 86.1 FL (78-98); MONOCYTES # (AUTO) 0.8 X10'3 (0-0.9); MONOCYTES % (AUTO) 7.2 % (2-12); PLATELET COUNT 225 X10'3 (140-440); RED BLOOD COUNT 4.63 X10'6 (4.20-5.60); RED CELL DISTRIBUTION WIDTH 14.2 % (11.5-14.5); WHITE BLOOD COUNT 11.7 X10'3 (4.5-11.0)
[2024-03-11] MEDS ORDERED: levetiracetam inj 1,500 MG in normal saline 100ml IV soln 100 ML IV ONE (16:30)
[2024-03-11 16:32] LABS: ALBUMIN 3.1 G/DL (3.4-5.0); ANION GAP 9 (8-16); BLOOD UREA NITROGEN 27 MG/DL (7-18); CALCIUM 9.7 MG/DL (8.5-10.1); CHLORIDE 96 MMOL/L (99-107); CREATININE 0.73 MG/DL (0.40-0.90); GLUCOSE 398 MG/DL (70-104); POTASSIUM 4.4 MMOL/L (3.5-5.1); PRO BRAIN NATRIURETIC PEPTIDE 594 PG/ML (0-125); SODIUM 131 MMOL/L (135-145); TOTAL CARBON DIOXIDE 26.3 MMOL/L (24-32); eCRCL 91 ML/MIN; eGFR 85 ML/MIN
[2024-03-11] MEDS: tranexamic acid inj. 1,000 MG in normal saline 100ml IV soln 90 ML IV ONE (16:38)
[2024-03-11] MEDS: ondansetron/PF 4mg/2ml inj IM ONE (16:38)
[2024-03-11] MEDS: LIDOcaine 1% W/epiNEPHrine 1:100,000 20ml vial SQ ONE (16:40)
[2024-03-11] MEDS: enalaprilat dihydrate 2.5mg/2ml vial IV ONE (16:45)
[2024-03-11] MEDS: levetiracetam inj 1,500 MG in normal saline 100ml IV soln 100 ML IV ONE (16:50)
[2024-03-11] MEDS: proCHLORperazine 10 MG/2 ml inj IV ONE (17:01)
[2024-03-11 17:04] VITALS: RESP 20
[2024-03-11] MEDS: HYDROmorphone 1 mg/ml syringe IV ONE (17:04)
[2024-03-11 17:18] LABS: APTT 25 SECONDS (22-32); INR 1.1 INR; PROTHROMBIN TIME 11.6 SECONDS (9.0-12.0)
[2024-03-11 17:25] VITALS: BP 158/92
[2024-03-11] MEDS: niCARDipine-NS 40mg/200ml IVPB 200 ML IV SCH (17:25)
== END 2024-03-11 18:17 | disposition short-term general hospital (02) ==
LOC: ER 14:06
DX: S02.119A Unspecified fracture of occiput, initial encounter for closed fracture (principal); S06.5XAA Traumatic subdural hemorrhage with loss of consciousness status unknown, initial encounter; I10 Essential (primary) hypertension; E11.9 Type 2 diabetes mellitus without complications; Z88.0 Allergy status to penicillin; Z88.5 Allergy status to narcotic agent; Z79.899 Other long term (current) drug therapy; Z79.82 Long term (current) use of aspirin; Z79.4 Long term (current) use of insulin; Z90.710 Acquired absence of both cervix and uterus; W19.XXXA Unspecified fall, initial encounter; Y93.89 Activity, other specified; Y92.89 Other specified places as the place of occurrence of the external cause; Y99.8 Other external cause status
CPT/HCPCS: 12002; 36415; 70450; 71045; 72125; 80048; 82948; 83880; 84484; 85025; 85610; 85730; 93005; 96365; 96366; 96368; 96372; 96375; 99291; J0780; J1170; J1953; J2060; J2405; J3010; J3490; J7030; A6449

== ENCOUNTER 2024-04-08 01:58 | Emergency (ER) | payer MEDICAID, OTHER ==
[~2024-04-08] VITALS: Ht 170.2 cm; Wt 93.6 kg
[~2024-04-08 01:58] MED LIST changes: -SULF1TAB48 PO
[2024-04-08 02:54] LABS: BASOPHILS % (AUTO) 0.4 % (0-1); EOSINOPHILS # (AUTO) 0.4 X10'3 (0-0.9); EOSINOPHILS % (AUTO) 5.1 % (0-6); HEMATOCRIT 32.7 % (35.0-45.0); HEMOGLOBIN 10.8 g/dl (12.0-16.0); LYMPHOCYTES # (AUTO) 1.3 X10'3 (1.1-4.8); LYMPHOCYTES % (AUTO) 18.1 % (21-51); MEAN CORPUSCULAR HEMOGLOBIN 28.5 PG (27.0-31.0); MEAN CORPUSCULAR HGB CONC 33.2 g/dL (33.0-36.5); MEAN PLATELET VOLUME 7.7 FL (7.4-10.4); MONOCYTES # (AUTO) 0.7 X10'3 (0-0.9); MONOCYTES % (AUTO) 9.2 % (2-12); NEUTROPHILS # (AUTO) 4.8 X10'3 (1.8-7.7); NEUTROPHILS % (AUTO) 67.2 % (42-75); PLATELET COUNT 196 X10'3 (140-440); WHITE BLOOD COUNT 7.1 X10'3 (4.5-11.0)
[2024-04-08] MEDS: ondansetron/PF 4mg/2ml inj IV ONE (02:54)
[2024-04-08] MEDS: morphine 4 MG/ML inj SYRINge IV ONE ×3 (02:56→15:12)
[2024-04-08 02:57] LABS: ALBUMIN 2.5 G/DL (3.4-5.0); ANION GAP 7 (8-16); BLOOD UREA NITROGEN 20 MG/DL (7-18); BUN/CREATININE RATIO 28.6 (10.0-20.0); CALCIUM 9.4 MG/DL (8.5-10.1); CHLORIDE 98 MMOL/L (99-107); GLUCOSE 211 MG/DL (70-104); LIPASE 17 U/L (16-77); POTASSIUM 4.4 MMOL/L (3.5-5.1); SODIUM 132 MMOL/L (135-145); TOTAL CARBON DIOXIDE 27.3 MMOL/L (24-32); eCRCL 95 ML/MIN; eGFR 89 ML/MIN
[2024-04-08] MEDS ORDERED: iohexol 300mg/ml 100ml inj. ONE (03:04)
[2024-04-08 03:21] LABS: BILIRUBIN,URINE NEGATIVE (Neg); CLARITY,URINE CLOUDY (Clear); COLOR,URINE YELLOW (Yellow); GLUCOSE, URINE NEGATIVE (Neg); KETONES,URINE NEGATIVE (Neg); LEUKOCYTE ESTERASE ,URINE SMALL (Neg); NITRITES, URINE POSITIVE (Neg); OCCULT BLOOD,URINE TRACE-INTACT (Neg); PROTEIN,URINE TRACE mg/dl (Neg); URINE HCG NEGATIVE (NEG)
[2024-04-08 03:29] LABS: UA COLLECTION TYPE FOLEY CATH
[2024-04-08 03:38] LABS: BACTERIA,URINE 1+ /HPF (Neg); MUCUS STRANDS FEW /LPF (Neg); RBC,URINE 0-2 /HPF (0-2); SQUAMOUS EPITHELIAL CELL,UR FEW /LPF (FEW); WBC,URINE 50-100 /HPF (0-4)
[2024-04-08 03:39] LABS: CAL OXALATE CRYSTALS FEW /HPF (NEGATIVE); TRANSITIONAL EPI CELLS,URINE FEW /HPF
[2024-04-08] MEDS: CefTRIAXone/D5W-Rocephin 1gm 50 ML IV ONE (04:04)
[2024-04-08] MEDS: furosemide 10 MG/1 ML 10ml inj IV ONE (05:08)
[2024-04-08] MEDS ORDERED: FURO-150 PO (10:49)
[2024-04-08] MEDS ORDERED: CEFU250T95 PO (10:49)
[2024-04-08] MEDS ORDERED: SPIR25TA5 PO (10:49)
[2024-04-08] MEDS ORDERED: acetaminophen 325mg tablet PO ONE (17:10)
[2024-04-08 17:52] VITALS: BP 114/73; PULSE 86; RESP 14; TEMP 97.9; O2SAT 95
== END 2024-04-08 18:34 | disposition home or self-care (01) ==
LOC: ER 01:59
DX: G44.89 Other headache syndrome (principal); N39.0 Urinary tract infection, site not specified; R60.1 Generalized edema; E87.1 Hypo-osmolality and hyponatremia; I48.91 Unspecified atrial fibrillation; I10 Essential (primary) hypertension; E11.9 Type 2 diabetes mellitus without complications; Z88.0 Allergy status to penicillin; Z88.5 Allergy status to narcotic agent; Z79.899 Other long term (current) drug therapy; Z79.4 Long term (current) use of insulin; Z90.710 Acquired absence of both cervix and uterus
CPT/HCPCS: 36415; 70450; 71045; 74177; 80048; 81001; 81025; 83690; 85025; 87077; 87088; 87186; 93970; 96365; 96375; 96376; 99285; J0696; J1940; J2270; J2405; Q9967

== ENCOUNTER 2024-04-22 13:44 | Emergency (ER) | payer MEDICAID, OTHER ==
[~2024-04-22] VITALS: Ht 170.2 cm; Wt 81.2 kg
[~2024-04-22 13:44] MED LIST changes: -ASPI-611 PO
[2024-04-22] MEDS: proCHLORperazine 10 MG/2 ml inj IV ONE (14:11)
[2024-04-22] MEDS: morphine 4 MG/ML inj SYRINge IV ONE (14:16)
[2024-04-22 14:23] LABS: BASOPHILS % (AUTO) 0.3 % (0-1); EOSINOPHILS # (AUTO) 0.2 X10'3 (0-0.9); EOSINOPHILS % (AUTO) 1.8 % (0-6); HEMATOCRIT 41.5 % (35.0-45.0); HEMOGLOBIN 13.9 g/dl (12.0-16.0); LYMPHOCYTES # (AUTO) 1.8 X10'3 (1.1-4.8); LYMPHOCYTES % (AUTO) 17.2 % (21-51); MEAN CORPUSCULAR HEMOGLOBIN 28.6 PG (27.0-31.0); MEAN CORPUSCULAR HGB CONC 33.6 g/dL (33.0-36.5); MEAN CORPUSCULAR VOLUME 85.1 FL (78-98); MEAN PLATELET VOLUME 8.1 FL (7.4-10.4); MONOCYTES % (AUTO) 9.9 % (2-12); NEUTROPHILS # (AUTO) 7.4 X10'3 (1.8-7.7); NEUTROPHILS % (AUTO) 70.8 % (42-75); PLATELET COUNT 285 X10'3 (140-440); RED BLOOD COUNT 4.87 X10'6 (4.20-5.60); RED CELL DISTRIBUTION WIDTH 15.7 % (11.5-14.5); WHITE BLOOD COUNT 10.5 X10'3 (4.5-11.0)
[2024-04-22 14:38] LABS: ALBUMIN 2.7 G/DL (3.4-5.0); ANION GAP 7 (8-16); BLOOD UREA NITROGEN 19 MG/DL (7-18); BUN/CREATININE RATIO 33.3 (10.0-20.0); CALCIUM 9.5 MG/DL (8.5-10.1); CHLORIDE 98 MMOL/L (99-107); CREATININE 0.57 MG/DL (0.40-0.90); GLUCOSE 374 MG/DL (70-104); POTASSIUM 3.8 MMOL/L (3.5-5.1); SODIUM 129 MMOL/L (135-145); TOTAL CARBON DIOXIDE 24.4 MMOL/L (24-32); eCRCL 116 ML/MIN; eGFR > 90 ML/MIN
[2024-04-22 15:16] LABS: PRO BRAIN NATRIURETIC PEPTIDE 2137 PG/ML (0-125)
[2024-04-22] MEDS: ringers solution, lacted 1,000 ML IV ONE (15:57)
[2024-04-22 16:14] LABS: LIPASE 38 U/L (16-77)
[2024-04-22] MEDS ORDERED: iohexol 350MG/ML 100ml bottle IV ONE (16:31)
[2024-04-22] MEDS ORDERED: piperacillin/tazo 3.375gm/50ml 50 ML IV ONE (18:30)
[2024-04-22 18:56] LABS: BASOPHILS # (AUTO) 0.1 X10'3 (0-0.2); EOSINOPHILS # (AUTO) 0.2 X10'3 (0-0.9); MEAN CORPUSCULAR VOLUME 84.5 FL (78-98); NEUTROPHILS # (AUTO) 7.6 X10'3 (1.8-7.7); WHITE BLOOD COUNT 11.4 X10'3 (4.5-11.0)
[2024-04-22 18:57] LABS: BASOPHILS % (AUTO) 0.6 % (0-1); EOSINOPHILS % (AUTO) 1.5 % (0-6); HEMATOCRIT 41.5 % (35.0-45.0); HEMOGLOBIN 14.1 g/dl (12.0-16.0); LYMPHOCYTES # (AUTO) 2.3 X10'3 (1.1-4.8); LYMPHOCYTES % (AUTO) 20.6 % (21-51); MEAN CORPUSCULAR HEMOGLOBIN 28.8 PG (27.0-31.0); MEAN CORPUSCULAR HGB CONC 34.1 g/dL (33.0-36.5); MEAN PLATELET VOLUME 8.1 FL (7.4-10.4); MONOCYTES # (AUTO) 1.2 X10'3 (0-0.9); MONOCYTES % (AUTO) 10.5 % (2-12); NEUTROPHILS % (AUTO) 66.8 % (42-75); PLATELET COUNT 269 X10'3 (140-440); RED BLOOD COUNT 4.91 X10'6 (4.20-5.60); RED CELL DISTRIBUTION WIDTH 15.3 % (11.5-14.5)
[2024-04-22 19:04] LABS: ALBUMIN 2.8 G/DL (3.4-5.0); ANION GAP 3 (8-16); BLOOD UREA NITROGEN 18 MG/DL (7-18); CALCIUM 9.7 MG/DL (8.5-10.1); CHLORIDE 97 MMOL/L (99-107); CREATININE 0.62 MG/DL (0.40-0.90); GLUCOSE 306 MG/DL (70-104); POTASSIUM 3.9 MMOL/L (3.5-5.1); SODIUM 127 MMOL/L (135-145); TOTAL CARBON DIOXIDE 26.6 MMOL/L (24-32); eCRCL 107 ML/MIN; eGFR > 90 ML/MIN
[2024-04-22] MEDS: HYDROmorphone inj. 0.5 MG/0.5 ML DISP.SYRIN IV ONE (19:26)
[2024-04-22] MEDS: CefTRIAXone 2gm/D5W 50ml BAG 50 ML IV ONE (19:28)
[2024-04-22] MEDS: metroNIDAZOLE-Flagyl 500mg/NS 100 ML IV STA (21:11)
[2024-04-22] MEDS: vancomycin/NS 1 GM ADD-VANTAGE 250 ML IV ONE (21:23)
[2024-04-23] MEDS: morphine 4 MG/ML inj SYRINge IV ONE ×2 (00:39→06:01)
[2024-04-23] MEDS: normal saline 1000ml 1,000 ML IV ONE (03:51)
[2024-04-23 04:09] LABS: BILIRUBIN,URINE MODERATE (Neg); CLARITY,URINE CLOUDY (Clear); COLOR,URINE YELLOW (Yellow); GLUCOSE, URINE 500 mg/dl (Neg); KETONES,URINE >=80 mg/dl (Neg); LEUKOCYTE ESTERASE ,URINE NEGATIVE (Neg); NITRITES, URINE NEGATIVE (Neg); OCCULT BLOOD,URINE TRACE-INTACT (Neg); PROTEIN,URINE 100 mg/dl (Neg); UROBILINOGEN,URINE 0.2 E.U/dL (0.2-1.0)
[2024-04-23 04:18] LABS: UA COLLECTION TYPE FOLEY CATH
[2024-04-23 04:27] LABS: BACTERIA,URINE FEW /HPF (Neg); SQUAMOUS EPITHELIAL CELL,UR MANY /LPF (FEW); YEAST MANY /HPF (NEGATIVE)
[2024-04-23 05:30] VITALS: BP 141/77; PULSE 72; TEMP 98.6; O2SAT 94
[2024-04-23] MEDS: metroNIDAZOLE-Flagyl 500mg/NS 100ml IVPB IV SCH (05:47)
[2024-04-23] MEDS: vancomycin/NS 1 GM ADD-VANTAGE 250 ML IV SCH (05:48)
[2024-04-23 06:01] VITALS: RESP 19
[2024-04-23] MEDS ORDERED: CefTRIAXone 2gm/D5W 50ml BAG 50 ML IV SCH (15:00)
== END 2024-04-23 07:01 | disposition home or self-care (01) ==
LOC: ER 13:44
DX: N15.1 Renal and perinephric abscess (principal); I48.91 Unspecified atrial fibrillation; I10 Essential (primary) hypertension; E11.9 Type 2 diabetes mellitus without complications; G89.29 Other chronic pain; Z85.43 Personal history of malignant neoplasm of ovary; Z90.710 Acquired absence of both cervix and uterus; Z98.890 Other specified postprocedural states; Z88.0 Allergy status to penicillin; Z88.8 Allergy status to other drugs, medicaments and biological substances; Z79.899 Other long term (current) drug therapy; Z79.4 Long term (current) use of insulin; Z20.822 Contact with and (suspected) exposure to COVID-19
CPT/HCPCS: 36415; 71045; 71275; 74174; 80048; 81001; 82948; 83605; 83690; 83880; 84145; 84484; 85025; 87040; 87077; 87088; 87186; 87811; 93005; 96361; 96365; 96366; 96367; 96368; 96375; 96376; 99285; J0696; J0780; J1170; J2270; J3370; J3490; J7030; J7120; Q9967; A4314; A6213

== ENCOUNTER 2024-05-28 08:09 | Emergency (ER) | payer MEDICAID, OTHER ==
[~2024-05-28] VITALS: Ht 170.2 cm; Wt 75.0 kg
[2024-05-28 08:13] VITALS: TEMP 98.1
[2024-05-28] MEDS: ondansetron/PF 4mg/2ml inj IV ONE (09:30)
[2024-05-28] MEDS: morphine 4 MG/ML inj SYRINge IV ONE (09:30)
[2024-05-28 09:45] LABS: BASOPHILS % (AUTO) 0.5 % (0-1); EOSINOPHILS # (AUTO) 0.3 X10'3 (0-0.9); EOSINOPHILS % (AUTO) 3.9 % (0-6); HEMATOCRIT 42.3 % (35.0-45.0); LYMPHOCYTES # (AUTO) 1.4 X10'3 (1.1-4.8); LYMPHOCYTES % (AUTO) 18.9 % (21-51); MEAN CORPUSCULAR HEMOGLOBIN 27.9 PG (27.0-31.0); MEAN CORPUSCULAR HGB CONC 33.1 g/dL (33.0-36.5); MEAN CORPUSCULAR VOLUME 84.4 FL (78-98); MEAN PLATELET VOLUME 7.1 FL (7.4-10.4); MONOCYTES # (AUTO) 0.6 X10'3 (0-0.9); MONOCYTES % (AUTO) 7.5 % (2-12); NEUTROPHILS # (AUTO) 5.3 X10'3 (1.8-7.7); NEUTROPHILS % (AUTO) 69.2 % (42-75); PLATELET COUNT 262 X10'3 (140-440); RED BLOOD COUNT 5.01 X10'6 (4.20-5.60); RED CELL DISTRIBUTION WIDTH 15.9 % (11.5-14.5); WHITE BLOOD COUNT 7.6 X10'3 (4.5-11.0)
[2024-05-28 10:09] LABS: ALANINE AMINOTRANSFERASE 24 U/L (12-78); ALBUMIN 3.3 G/DL (3.4-5.0); ALBUMIN/GLOBULIN RATIO 0.8 (1.1-1.5); ALKALINE PHOSPHATASE 98 IU/L (46-116); ANION GAP 9 (8-16); ASPARTATE AMINO TRANSFERASE 22 U/L (10-37); BILIRUBIN,TOTAL 0.5 MG/DL (0.1-1.0); BLOOD UREA NITROGEN 15 MG/DL (7-18); BUN/CREATININE RATIO 29.4 (10.0-20.0); CALCIUM 10.3 MG/DL (8.5-10.1); CHLORIDE 97 MMOL/L (99-107); CREATININE 0.51 MG/DL (0.40-0.90); GLUCOSE 316 MG/DL (70-104); POTASSIUM 3.5 MMOL/L (3.5-5.1); SODIUM 132 MMOL/L (135-145); TOTAL CARBON DIOXIDE 25.9 MMOL/L (24-32); TOTAL PROTEIN 7.5 G/DL (6.4-8.2); eCRCL 130 ML/MIN; eGFR > 90 ML/MIN
[2024-05-28 10:24] LABS: BILIRUBIN,DIRECT 0.1 MG/DL (0-0.3); C-REACTIVE PROTEIN 0.41 MG/DL (0.0-0.5); MAGNESIUM 1.3 MG/DL (1.5-2.4); PRO BRAIN NATRIURETIC PEPTIDE 1009 PG/ML (0-125)
[2024-05-28] MEDS: oxyCODONE/APAP 10/325mg tablet PO ONE (10:50)
[2024-05-28] MEDS: magnesium sulf-water 2g/50mL 50 ML IV ONE (11:09)
[2024-05-28 11:31] LABS: URINE HCG NEGATIVE (NEG)
[2024-05-28 11:34] LABS: BILIRUBIN,URINE NEGATIVE (Neg); CLARITY,URINE CLOUDY (Clear); COLOR,URINE YELLOW (Yellow); GLUCOSE, URINE 500 mg/dl (Neg); KETONES,URINE >=80 mg/dl (Neg); LEUKOCYTE ESTERASE ,URINE NEGATIVE (Neg); NITRITES, URINE NEGATIVE (Neg); OCCULT BLOOD,URINE TRACE-INTACT (Neg); PROTEIN,URINE 100 mg/dl (Neg); UROBILINOGEN,URINE 0.2 E.U/dL (0.2-1.0)
[2024-05-28 12:16] LABS: SQUAMOUS EPITHELIAL CELL,UR FEW /LPF (FEW); UA COLLECTION TYPE FOLEY CATH
[2024-05-28 12:17] LABS: BACTERIA,URINE 4+ /HPF (Neg); WBC,URINE 50-100 /HPF (0-4)
[2024-05-28 12:18] LABS: CAL OXALATE CRYSTALS 4+ /HPF (NEGATIVE); RBC,URINE 0-2 /HPF (0-2)
[2024-05-28] MEDS ORDERED: SULF1TAB49 PO (12:23)
[2024-05-28] MEDS ORDERED: HYDR-3964 PO (12:25)
[2024-05-28] MEDS: LidoCAINE 2% Topical Jelly 11mL syringe (UROJET) TOP ONE (12:25)
[2024-05-28] MEDS ORDERED: MAGN64TA8 PO (12:27)
[2024-05-28] MEDS: CefTRIAXone 1000mg IM Kit (w/lidocaine diluent) IM ONE (13:17)
[2024-05-28] MEDS: CefTRIAXone/D5W-Rocephin 1gm 50 ML IV ONE (13:17)
[2024-05-28 14:04] VITALS: BP 127/82; PULSE 90; RESP 16; O2SAT 100
== END 2024-05-28 14:22 | disposition home or self-care (01) ==
LOC: ER 08:10
DX: N39.0 Urinary tract infection, site not specified (principal); M54.6 Pain in thoracic spine; M25.511 Pain in right shoulder; R33.9 Retention of urine, unspecified; I48.91 Unspecified atrial fibrillation; I10 Essential (primary) hypertension; E11.9 Type 2 diabetes mellitus without complications; Z88.0 Allergy status to penicillin; Z88.5 Allergy status to narcotic agent; Z79.899 Other long term (current) drug therapy; Z90.710 Acquired absence of both cervix and uterus
CPT/HCPCS: 36415; 51702; 71045; 80048; 80076; 81001; 81025; 83605; 83735; 83880; 84145; 84484; 85025; 86140; 87040; 87077; 87088; 87186; 93005; 96365; 96366; 96367; 96375; 99285; J0696; J2270; J2405; A4314